=== PATIENT | female | born 1985 | race Caucasian/White ===

== ENCOUNTER 2017-07-21 11:42 | Observation (INO) | payer MEDICARE ==
[2017-07-21] MEDS ORDERED: Sodium Chloride 0.9% 500 ML 500 ML IV ONE ×2 (11:57→12:06)
[2017-07-21] MEDS ORDERED: PROVENTIL 2.5 MG/3 ML NEB IH ONE ×2 (11:58→12:09)
[2017-07-21] MEDS ORDERED: TYLENOL EXTRA STRENGTH 500 MG PO STA (11:58)
[2017-07-21] MEDS ORDERED: Sodium Chloride 0.9% 1000 ML 0 ML ONE (12:05)
[2017-07-21] MEDS ORDERED: TYLENOL EXTRA STRENGTH 500 MG ONE (12:05)
[2017-07-21 12:10] LABS: BASOPHIL % 0.2 % (0.0-0.4); Basophil (Absolute #) 0.01 (0-0.4); Eosinophil (Absolute #) 0 (0-0.5); Granulocyte Absolute (ANC) 3.59 (1.4-6.9); Granulocytes % 68.7 % (36.0-66.0); Hematocrit 46.8 % (35-47); Hemoglobin 15.7 gm/dl (12.0-16.0); Lymphocyte (Absolute #) 1.11 (1.0-4.6); Lymphocytes % 21.3 % (24.0-44.0); Mean Cell Volume 92.9 fl (78-100); Mean Corpuscular Hemoglobin 31.2 pg (26-32); Mean Corpuscular Hgb Concent. 33.5 g/dl (32-36); Mean Platelet Volume 10.1 fl (6-9.5); Monocyte (Absolute #) 0.51 (0.0-1.3); Monocytes % 9.8 % (0.0-12.0); Platelet Count 168 K/mm3 (150-450); Red Blood Count 5.04 M/mm3 (4.1-5.4); Red Cell Distribution Width 14.9 % (11.5-14.0); White Blood Count 5.2 K/mm3 (4.0-10.5)
--- NOTE | 2017-07-21 12:30 | ERPHSYRPT ---
- History of Present Illness Time Seen by Provider: 07/21/17 11:46 Source: patient Patient Subjective Stated Complaint: pt states she has cough fever flu like symptoms for the past 12 hrs. Triage Nursing Assessment: pt pale, hot to touch, dry. lung sounds course bilaterally. pt febrile 102.8. Physician History: CC: fever Hx: 31 y/o patient of Dr Farley/Edilson with hx of [place] Syndrome. Her son was diagnosed with influenza A 2 days ago. She started tamiflu this AM empirically. She has 1 day hx of cough, headache, mylagias, breakbone fever, diarrhea. She felt worse so came to ER. No hx of asthma. She had prior hysterectomy. Sore throat. Cough Quality/Degree: severe, dry cough Allergies/Adverse Reactions: morphine Allergy (Verified 07/21/17 12:01) "HAD SINCE I WAS A KID" Home Medications: Oseltamivir 75 mg [Tamiflu 75MG Capsule] 75 mg PO DAILY 07/21/17 [History] Hx Tetanus, Diphtheria Vaccination/Date Given: Yes (up to date) Hx Influenza Vaccination/Date Given: Yes Hx Pneumococcal Vaccination/Date Given: No Immunizations Up to Date: Yes - Review of Systems Constitutional: Fever, Chills, Fatigue, Malaise, Weakness Eyes: No Symptoms Ears, Nose, & Throat: Nose Congestion, Throat Pain Respiratory: Cough Abdominal/Gastrointestinal: Diarrhea, No Vomiting Genitourinary Symptoms: No Dysuria Skin: No Rash Neurological: No Headache All Other Systems: Reviewed and Negative - Past Medical History Pertinent Past Medical History: Yes Neurological History: Other ENT History: No Pertinent History Cardiac History: No Pertinent History Respiratory History: No Pertinent History Endocrine Medical History: Hyperthyroidism Musculoskeletal History: Other GI Medical History: No Pertinent History, Gallbladder Disease, Other History: No Pertinent History Psycho-Social History: No Pertinent History Female Reproductive Disorders: No Pertinent History Other Medical History: KEYANNA-JAY SYNDROME history of bowel obstructions - Past Surgical History Past Surgical History: Yes Neuro Surgical History: No Pertinent History Cardiac: No Pertinent History Respiratory: No Pertinent History Gastrointestinal: Cholecystectomy, Other Genitourinary: No Pertinent History Musculoskeletal: Orthopedic Surgery Female Surgical History: Hysterectomy Other Surgical History: PARTIAL THYROIDECTOMY - Social History Smoking Status: Current every day smoker How long have you smoked: 18 Exposure to second hand smoke: Yes Drug Use: none Patient Lives Alone: No - Female History Hx Now: (Hyster) - Nursing Vital Signs Nursing Vital Signs: Initial Vital Signs Temperature 102.8 F 07/21/17 11:55 Pulse Rate 144 H 07/21/17 11:55 Respiratory Rate 22 07/21/17 11:55 Blood Pressure 133/92 07/21/17 11:55 O2 Sat by Pulse Oximetry 97 07/21/17 11:55 Pain Scale Pain Intensity 6 - Physical Exam General Appearance: alert, other (small statured) Eye Exam: PERRL/EOMI Ears, Nose, Throat Exam: dry mucous membranes Neck Exam: normal inspection, non-tender, supple, No meningismus Respiratory Exam: normal breath sounds Cardiovascular Exam: regular rate/rhythm, tachycardia Gastrointestinal/Abdomen Exam: soft, No tenderness, No distention Extremity Exam: normal inspection Neurologic Exam: alert, oriented x 3, cooperative, sensation nml, No motor deficits Skin Exam: warm, dry, No rash SpO2 Interpretation: normal SpO2: 97 Oxygen Delivery: Room Air - Course Nursing assessment & vital signs reviewed: Yes - Radiology Exams cxr X-ray Interpretation: Teleradiologist Report (stable nonacute hyperinflated chest) Ordered Tests: Active Orders 24 hr Category Date Time Status Clean Catch Urine Specimen STAT Care 07/21/17 11:56 Active EKG-ER Only STAT Care 07/21/17 14:46 Active IV Insertion STAT Care 07/21/17 11:56 Active CHEST 2 VIEWS (PA AND LAT) Stat Exams 07/21/17 11:56 Completed ECHO W/2D AND DOPPLER [US] Stat Exams 07/21/17 Ordered CBC W DIFF Stat Lab 07/21/17 12:07 Completed CMP Stat Lab 07/21/17 12:07 Completed CULTURE,URINE Stat Lab 07/21/17 12:20 Received Lactic Acid Stat Lab 07/21/17 12:05 Completed TROPONIN Q3H Lab 07/21/17 15:00 Ordered TROPONIN Q3H Lab 07/21/17 18:00 Ordered TROPONIN Q3H Lab 07/21/17 21:00 Ordered TROPONIN Q3H Lab 07/22/17 00:00 Ordered TROPONIN Q3H Lab 07/22/17 03:00 Ordered UA W/ MICROSCOPIC Stat Lab 07/21/17 12:20 Completed Respiratory Nebulizer STAT RT 07/21/17 11:58 Completed Medication Summary Generic Name Dose Route Start Last Admin Trade Name Emre PRN Reason Stop Dose Admin Lactated Ringer's 1,000 mls @ 68 mls/hr 07/21/17 13:00 07/21/17 12:47 Lactated Ringers IV 08/20/17 12:59 68 mls/hr .[id number] Administration Discontinued Medications Generic Name Dose Route Start Last Admin Trade Name Emre PRN Reason Stop Dose Admin Acetaminophen 500 mg 07/21/17 11:58 07/21/17 12:05 Tylenol Extra Strength 500 Mg PO 07/21/17 11:59 500 mg STAT STA Administration Acetaminophen Confirm 07/21/17 12:05 Tylenol Extra Strength 500 Mg Administered 07/21/17 12:06 Dose 500 mg .ROUTE .STK-MED ONE Albuterol Sulfate 2.5 mg 07/21/17 11:58 07/21/17 12:22 Proventil 2.5 Mg/3 Ml Neb IH 07/21/17 11:59 2.5 mg STAT ONE Administration Albuterol Sulfate Confirm 07/21/17 12:09 Proventil 2.5 Mg/3 Ml Neb Administered 07/21/17 12:10 Dose 2.5 mg IH .STK-MED ONE Sodium Chloride 500 mls @ 500 mls/hr 07/21/17 11:57 07/21/17 12:06 Sodium Chloride 0.9% 500 Ml IV 07/21/17 12:56 500 mls/hr .Q1H ONE Administration Sodium Chloride Confirm 07/21/17 12:05 Sodium Chloride 0.9% 1000 Ml Administered 07/21/17 12:06 Dose 1,000 mls @ ud .ROUTE .STK-MED ONE Sodium Chloride Confirm 07/21/17 12:06 Sodium Chloride 0.9% 500 Ml Administered 07/21/17 12:07 Dose 500 mls @ ud IV .STK-MED ONE Ibuprofen 200 mg 07/21/17 13:59 07/21/17 14:03 Motrin 200 Mg PO 07/21/17 14:00 200 mg STAT ONE Administration Ibuprofen Confirm 07/21/17 14:02 Motrin 400 Mg Administered 07/21/17 14:03 Dose 400 mg .ROUTE .STK-MED ONE Lab/Rad Data: Laboratory Result Diagrams 07/21/17 12:07 07/21/17 12:07 Laboratory Results 07/21/17 07/21/17 07/21/17 Range/Units 12:20 12:07 12:07 WBC 5.2 (4.0-10.5) K/mm3 RBC 5.04 (4.1-5.4) M/mm3 Hgb 15.7 (12.0-16.0) gm/dl Hct 46.8 (35-47) % MCV 92.9 (78-100) fl MCH 31.2 (26-32) pg MCHC 33.5 (32-36) g/dl RDW 14.9 H (11.5-14.0) % Plt Count 168 (150-450) K/mm3 MPV 10.1 H (6-9.5) fl Gran % 68.7 H (36.0-66.0) % Lymphocytes % 21.3 L (24.0-44.0) % Monocytes % 9.8 (0.0-12.0) % Eosinophils % 0.0 (0.00-5.0) % Basophils % 0.2 (0.0-0.4) % Basophils # 0.01 (0-0.4) Sodium 134 L (136-145) mEq/L Potassium 3.2 L (3.5-5.1) mEq/L Chloride 98 (98-107) mEq/L Carbon Dioxide 23.4 (21-32) mEq/L Anion Gap 15.8 H (5-15) MEQ/L BUN 10 (9-20) mg/dL Creatinine 0.62 (0.55-1.30) mg/dl Estimated GFR > 60 ML/MIN Glucose 104 (70-110) MG/DL Lactic Acid (0.4-2.0) Calcium 9.0 (8.5-10.1) mg/dL Total Bilirubin 0.40 (0.2-1.0) mg/dL AST 30 (15-37) U/L ALT 28 (12-78) U/L Alkaline Phosphatase 231 H (46-116) U/L Serum Total Protein 7.5 (6.4-8.2) gm/dL Albumin 3.7 (3.4-5.0) g/dL Ur Collection Type VOID Urine Color YELLOW (YELLOW) Urine Appearance HAZY (CLEAR) Urine pH 5.0 (5-6) Ur Specific [place] 1.025 (1.005-1.025) Urine Protein 100 (Negative) Urine Ketones MODERATE (NEGATIVE) Urine Blood 50 (0-5) Jourdan/ul Urine Nitrite NEGATIVE (NEGATIVE) Urine Bilirubin SMALL (NEGATIVE) Urine Urobilinogen 8 (0-1) mg/dL Ur Leukocyte Esterase NEGATIVE (NEGATIVE) Urine Microscopic RBC 2-5 (0-2) /HPF Urine Microscopic WBC 0-2 (0-5) /HPF Ur Epithelial Cells FEW (FEW) /HPF Urine Bacteria MODERATE (NEGATIVE) /HPF Urine Mucus MODERATE (NEGATIVE) /HPF Urine Culture Reflexed YES (NO) Urine Glucose NEGATIVE (NEGATIVE) mg/dL Specimen Received 07/21/17 1220 07/21/17 Range/Units 12:05 WBC (4.0-10.5) K/mm3 RBC (4.1-5.4) M/mm3 Hgb (12.0-16.0) gm/dl Hct (35-47) % MCV (78-100) fl MCH (26-32) pg MCHC (32-36) g/dl RDW (11.5-14.0) % Plt Count (150-450) K/mm3 MPV (6-9.5) fl Gran % (36.0-66.0) % Lymphocytes % (24.0-44.0) % Monocytes % (0.0-12.0) % Eosinophils % (0.00-5.0) % Basophils % (0.0-0.4) % Basophils # (0-0.4) Sodium (136-145) mEq/L Potassium (3.5-5.1) mEq/L Chloride (98-107) mEq/L Carbon Dioxide (21-32) mEq/L Anion Gap (5-15) MEQ/L BUN (9-20) mg/dL Creatinine (0.55-1.30) mg/dl Estimated GFR ML/MIN Glucose (70-110) MG/DL Lactic Acid 1.1 (0.4-2.0) Calcium (8.5-10.1) mg/dL Total Bilirubin (0.2-1.0) mg/dL AST (15-37) U/L ALT (12-78) U/L Alkaline Phosphatase (46-116) U/L Serum Total Protein (6.4-8.2) gm/dL Albumin (3.4-5.0) g/dL Ur Collection Type Urine Color (YELLOW) Urine Appearance (CLEAR) Urine pH (5-6) Ur Specific [place] (1.005-1.025) Urine Protein (Negative) Urine Ketones (NEGATIVE) Urine Blood (0-5) Jourdan/ul Urine Nitrite (NEGATIVE) Urine Bilirubin (NEGATIVE) Urine Urobilinogen (0-1) mg/dL Ur Leukocyte Esterase (NEGATIVE) Urine Microscopic RBC (0-2) /HPF Urine Microscopic WBC (0-5) /HPF Ur Epithelial Cells (FEW) /HPF Urine Bacteria (NEGATIVE) /HPF Urine Mucus (NEGATIVE) /HPF Urine Culture Reflexed (NO) Urine Glucose (NEGATIVE) mg/dL Specimen Received - Progress Progress Note: 07/21/17 12:29 She has influenza syndrome. IVF bolus and APAP in progress. 07/21/17 15:09 Remains tachycardic despite 30ml/kg crystalloid, APAP, motrin. EKG shows some ST abnormalities. Called Dr Farley and will place in tele obs, get echo, flu treatment, and consult cardiology to rule out myocarditis. Will see patient in: hospital (observation) Counseled pt/family regarding: lab results, diagnosis, need for follow-up, rad results - Departure Time of Disposition: 15:10 Departure Disposition: Observation Clinical Impression: [place] syndrome, Influenza, Tachycardia, r/o myocarditis Condition: Fair Critical Care Time: No Referrals: ADAL FARLEY [Primary Care Provider] -
--- NOTE | 2017-07-21 12:34 | XRAY ---
Indication: Fever, cough, and chills. History Keyanna-Malissa syndrome. Comparison: February 23, 2016. PA/lateral chest remains hyperinflated and clear. Heart is not enlarged. Bony thorax intact again with old left rib fractures and mild double curvature scoliosis. Also stable bilateral bony lytic lesions related to known history Keyanna-Malissa syndrome. Impression: Stable nonacute hyperinflated chest with chronic features.
[2017-07-21 12:35] LABS: ALBUMIN 3.7 g/dL (3.4-5.0); ALKALINE PHOSPHATASE 231 U/L (46-116); ANION GAP 15.8 MEQ/L (5-15); BLOOD UREA NITROGEN 10 mg/dL (9-20); CHLORIDE 98 mEq/L (98-107); Carbon Dioxide 23.4 mEq/L (21-32); Creatinine 1 0.62 mg/dl (0.55-1.30); EST GLOMERULAR FILTRATION RATE > 60 ML/MIN; Glucose 104 MG/DL (70-110); Potassium 3.2 mEq/L (3.5-5.1); SGOT/AST 30 U/L (15-37); SGPT/ALT 28 U/L (12-78); SODIUM 134 mEq/L (136-145); Total Protein 7.5 gm/dL (6.4-8.2)
[2017-07-21 12:38] LABS: Appearance HAZY (CLEAR); Bilirubin SMALL (NEGATIVE); Glucose NEGATIVE (NEGATIVE); Ketones MODERATE (NEGATIVE); Leukocyte Esterase NEGATIVE (NEGATIVE); Nitrite NEGATIVE (NEGATIVE); Protein,Urine Dip 100 (Negative); Specific Gravity 1.025 (1.005-1.025); Urobilinogen 8 mg/dL (0-1)
[2017-07-21 12:39] LABS: Bacteria MODERATE /HPF (NEGATIVE); Blood 50 Ery/ul (0-5); Epithelial Cells FEW /HPF (FEW); Mucus MODERATE /HPF (NEGATIVE); WBC 0-2 /HPF (0-5)
[2017-07-21] MEDS ORDERED: Lactated Ringers 1,000 ML IV ONE (12:45)
[2017-07-21] MEDS ORDERED: Lactated Ringers 1,000 ML IV SCH (13:00)
[2017-07-21] MEDS ORDERED: MOTRIN 200 MG PO ONE (13:59)
[2017-07-21] MEDS ORDERED: MOTRIN 400 MG ONE (14:02)
[2017-07-21 16:23] LABS: INFLUENZA A POSITIVE (NEGATIVE); INFLUENZA B NEGATIVE (NEGATIVE); RESPIRATORY SYNCTIAL VIRUS NEGATIVE (Negative)
[2017-07-21] MEDS ORDERED: D5w/0.45NS W/ 40MEQ KCl 1000 Ml 1,000 ML IV SCH (17:26)
[2017-07-21] MEDS: OSELTAMIVIR PHOSPHATE 30 MG CAP PO SCH (22:11)
[2017-07-21] MEDS: TYLENOL EXTRA STRENGTH 500 MG PO PRN (22:17)
[2017-07-22 04:56] LABS: ANION GAP 11.3 MEQ/L (5-15); BLOOD UREA NITROGEN 7 mg/dL (9-20); CHLORIDE 106 mEq/L (98-107); Calcium 8.4 mg/dL (8.5-10.1); Carbon Dioxide 27.1 mEq/L (21-32); Creatinine 1 0.39 mg/dl (0.55-1.30); EST GLOMERULAR FILTRATION RATE > 60 ML/MIN; Glucose 109 MG/DL (70-110); Potassium 3.3 mEq/L (3.5-5.1); SODIUM 141 mEq/L (136-145)
[2017-07-22 05:14] LABS: NT PRO BNP 29 pg/ml (0-125)
[2017-07-22 05:16] LABS: TROPONIN < 0.017 ng/ml (0.000-0.056)
[2017-07-22] MEDS: TYLENOL EXTRA STRENGTH 500 MG PO PRN (05:33)
[2017-07-22 07:52] VITALS: BP 112/58; PULSE 68; O2SAT 96
--- NOTE | 2017-07-22 08:24 | ECHO ---
DATE OF TEST: 07/21/2017 INDICATION: Influenza with tachycardia. FINDINGS: 1) Normal left ventricular wall thickness and cavity size with normal left ventricular systolic function. Overall left ventricular ejection fraction is 60%. Left ventricle inflow Doppler examination is normal for patient's age. Right ventricle is normal in size and systolic function. 2) Atria are normal in size. 3) Mitral valve is structurally normal with trace mitral regurgitation. Tricuspid valve is structurally normal with mild 1+ tricuspid regurgitation and estimated pulmonary artery systolic pressure of 34 mm of [place]. Aortic valve not well visualized but valve excursion is normal. Pulmonic valve is grossly normal. 4) No pericardial effusion. 5) Interatrial septum is mobile and the possibility of patent foramen ovale cannot be excluded. 6) Inferior vena cava is normal in size and inspiratory collapse. IMPRESSION: 1) NORMAL LEFT VENTRICULAR SIZE AND SYSTOLIC FUNCTION. OVERALL LEFT VENTRICULAR EJECTION FRACTION IS 60%. 2) TRACE MITRAL REGURGITATION. 3) MILD 1+ TRICUSPID REGURGITATION WITH ESTIMATED PULMONARY ARTERY SYSTOLLIC PRESSURE OF 34 MM OF MERCURY. 4) NO PERICARDIAL EFFUSION.
--- NOTE | 2017-07-22 09:08 | PCM.SSS ---
History of Present Illness - Chief Complaint Chief Complaint: Flu A History of Present Illness: is a 31 year old female pt of mine from 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 Her son was dx last week and DR. Waggoner called in some tamiflu for her - she has been ill x 3d with fever to 102, took one dose of Tamiflu yesterday morning then had body aches so badly she came to ER. She was found to be tachycardic, in the 130s initially, 110s at the time the ER doctor spoke with me, despite being hydrated. Dr. Yang was consulted, thank you, and an echocardiogram was done. This morning she is feeling much better and would like to go home. HR is wnl. - Review of Systems Constitutional: Fever Respiratory: Cough Abdominal/Gastrointestinal: Abdominal Pain (RLQ with coughing), Diarrhea (few times) Musculoskeletal: Arthralgias Psychological: No Anxiety, No Depression, No Suicidal Ideations, No Homicidal Ideations All Other Systems: Reviewed and Negative Medications & Allergies Home Medications: Home Medication List Oseltamivir 75 mg [Tamiflu 75MG Capsule] 75 mg PO DAILY 07/21/17 [History Confirmed 07/21/17] Allergies/Adverse Reactions: Allergies Allergy/AdvReac Type Severity Reaction Status Date / Time morphine Allergy "HAD SINCE Verified 07/21/17 12:01 I WAS A KID" - Past Medical History Past Medical History: Yes Neurological History: Other ENT History: No Pertinent History Cardiac History: No Pertinent History Respiratory History: No Pertinent History Endocrine Medical History: Hyperthyroidism Musculoskelatal History: Other GI Medical History: No Pertinent History, Gallbladder Disease, Other History: No Pertinent History Pyscho-Social History: No Pertinent History Reproductive Disorders: No Pertinent History Comment: KEYANNA-JAY SYNDROME history of bowel obstructions - Female History Are you now?: No (Hyster) - Past Surgical History Past Surgical History: Yes Neuro Surgical History: No Pertinent History Cardiac History: No Pertinent History Respiratory Surgery: No Pertinent History GI Surgical History: Cholecystectomy, Other Genitourinary Surgical Hx: No Pertinent History Musculskeletal Surgical Hx: Orthopedic Surgery Female Surgical History: Hysterectomy Other Surgical History: PARTIAL THYROIDECTOMY - Social History Smoking Status: Current every day smoker How long have you smoked: 1/2 pk Exposure to second hand smoke: No Alcohol: None Drug Use: none - Physical Exam Vital Signs: Vital Signs - 24 hr Temp Pulse Resp BP Pulse Ox 07/22/17 07:51 98 F 68 20 112/58 96 07/22/17 04:29 98.1 F 97 H 18 103/60 92 L 07/22/17 00:20 99.3 F 100 H 17 110/66 90 L 07/21/17 19:39 97.7 F 101 H 15 118/73 93 L 07/21/17 17:35 97.0 F 91 H 16 100/59 91 L 07/21/17 17:31 97.0 F 91 H 100/59 07/21/17 17:26 97.0 F 91 H 16 100/59 91 L 07/21/17 16:40 98.5 F 105 H 16 124/76 97 07/21/17 15:50 98.5 F 111 H 18 102/65 07/21/17 15:10 97 07/21/17 15:05 115 H 18 117/69 94 L 07/21/17 14:00 101.4 F 129 H 20 132/74 07/21/17 13:15 133 H 16 124/78 91 L 07/21/17 12:41 136 H 18 129/79 96 07/21/17 12:27 124 H 20 94 L 07/21/17 11:55 102.8 F 144 H 22 133/92 97 General Appearance: no apparent distress, alert Neurologic Exam: oriented x 3, cooperative Eye Exam: eyes nml inspection Neck Exam: normal inspection Respiratory Exam: normal breath sounds, lungs clear, No crackles/rales, No rhonchi, No wheezing Cardiovascular Exam: regular rate/rhythm, normal heart sounds, No murmur Gastrointestinal/Abdomen Exam: soft, normal bowel sounds, tenderness (RLQ), No distention, No mass, No guarding, No rebound Back Exam: normal inspection, No rash Extremity Exam: No pedal edema, No swelling Skin Exam: normal color, warm, dry, No rash Results - Labs Lab/Micro Results: Lab Results-Last 24 Hours 07/21/17 07/21/17 07/22/17 Range/Units 18:06 21:04 00:24 Sodium (136-145) mEq/L Potassium (3.5-5.1) mEq/L Chloride (98-107) mEq/L Carbon Dioxide (21-32) mEq/L Anion Gap (5-15) MEQ/L BUN (9-20) mg/dL Creatinine (0.55-1.30) mg/dl Estimated GFR ML/MIN Glucose (70-110) MG/DL Calcium (8.5-10.1) mg/dL Troponin I < 0.017 < 0.017 < 0.017 (0.000-0.056) ng/ml NT-Pro-B Natriuret Pep (0-125) pg/ml 07/22/17 07/22/17 Range/Units 03:32 03:32 Sodium 141 (136-145) mEq/L Potassium 3.3 L (3.5-5.1) mEq/L Chloride 106 (98-107) mEq/L Carbon Dioxide 27.1 (21-32) mEq/L Anion Gap 11.3 (5-15) MEQ/L BUN 7 L (9-20) mg/dL Creatinine 0.39 L (0.55-1.30) mg/dl Estimated GFR > 60 ML/MIN Glucose 109 (70-110) MG/DL Calcium 8.4 L (8.5-10.1) mg/dL Troponin I < 0.017 (0.000-0.056) ng/ml NT-Pro-B Natriuret Pep 29 (0-125) pg/ml Assessment/Plan (1) Hypokalemia Current Visit: Yes Status: Acute Assessment & Plan: will give po potassium herearturo when she resumes her normal diet the K+ will be normal - recheck BMP in one week. Code(s): E87.6 - HYPOKALEMIA (2) Influenza Current Visit: Yes Status: Acute Assessment & Plan: home on tamiflu BID x 5d total Code(s): J11.1 - FLU DUE TO UNIDENTIFIED INFLUENZA VIRUS W OTH RESP MANIFEST (3) Tachycardia Current Visit: Yes Status: Acute Assessment & Plan: resolved. appreciate cardiology consult. 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 she is feeling much better today with HR wnl so will be discharged to home. - Vitals & Intake/Output Vital Signs: Vital Signs Temperature 98 F 07/22/17 07:51 Pulse Rate 68 07/22/17 07:51 Respiratory Rate 20 07/22/17 07:51 Blood Pressure 112/58 07/22/17 07:51 O2 Sat by Pulse Oximetry 96 07/22/17 07:51 Intake & Output: Intake & Output 07/19/17 07/20/17 07/21/17 07/22/17 11:59 11:59 11:59 11:59 Intake Total 1115 Output Total 550 Balance 565 Weight 39.4 kg - Lab Result Diagrams: 07/21/17 12:07 07/22/17 03:32 Lab Results-Last 24 Hrs: Lab Results-Last 24 Hours 07/21/17 07/21/17 07/22/17 Range/Units 18:06 21:04 00:24 Sodium (136-145) mEq/L Potassium (3.5-5.1) mEq/L Chloride (98-107) mEq/L Carbon Dioxide (21-32) mEq/L Anion Gap (5-15) MEQ/L BUN (9-20) mg/dL Creatinine (0.55-1.30) mg/dl Estimated GFR ML/MIN Glucose (70-110) MG/DL Calcium (8.5-10.1) mg/dL Troponin I < 0.017 < 0.017 < 0.017 (0.000-0.056) ng/ml NT-Pro-B Natriuret Pep (0-125) pg/ml 07/22/17 07/22/17 Range/Units 03:32 03:32 Sodium 141 (136-145) mEq/L Potassium 3.3 L (3.5-5.1) mEq/L Chloride 106 (98-107) mEq/L Carbon Dioxide 27.1 (21-32) mEq/L Anion Gap 11.3 (5-15) MEQ/L BUN 7 L (9-20) mg/dL Creatinine 0.39 L (0.55-1.30) mg/dl Estimated GFR > 60 ML/MIN Glucose 109 (70-110) MG/DL Calcium 8.4 L (8.5-10.1) mg/dL Troponin I < 0.017 (0.000-0.056) ng/ml NT-Pro-B Natriuret Pep 29 (0-125) pg/ml - Discharge Disposition: Home, Self-Care Condition: Good Prescriptions: Continue Oseltamivir 75 mg [Tamiflu 75MG Capsule] 75 mg PO DAILY Follow up with: ADAL FLANNERY [Primary Care Provider] -
--- NOTE | 2017-07-22 09:54 | CONS ---
CONSULT DATE: 07/21/2017 BRIEF HISTORY: This is a 31 year-old female who was seen because of tachycardia. The patient has the diagnosis of Keyanna-[place] Syndrome. She was apparently diagnosed to have influenza about two days ago and was started on Tamiflu. Her symptoms seems to have gotten worse with development of myalgia, joint pain, fever and diarrhea. She was then brought to the emergency room and she was noted to be tachycardic. She denies any chest pains, no shortness of breath. She just felt worn out and diffuse myalgia. CARDIAC RISK FACTORS: Negative for diabetes. No hypertension. She smokes about a half pack of cigarettes a day. No known hyperlipidemia. CURRENT MEDICATIONS: Tamiflu. ALLERGIES: MORPHINE. REVIEW OF SYSTEMS: TECHNICIAN AUTOMATIC: No history of stroke. No seizures. RESPIRATORY: No chronic cough. GI: She had multiple abdominal surgeries. : Negative for dysuria or hematuria. PERIPHERAL VASCULAR: No history of DVT or claudication. PAST MEDICAL HISTORY: Her significant medical history includes Keyanna-Malissa Syndrome for which she has had multiple orthopedic procedures. PAST SURGICAL HISTORY: Partial thyroidectomy. Hysterectomy. Multiple orthopedic procedures. Cholecystectomy. SOCIAL HISTORY: She is single. She has no significant alcohol intake. PHYSICAL EXAMINATION: Her blood pressure is 133/92 with heart rate of 110 with temperature 102.8F, respirations about 20. GENERAL: The patient is a young female who is alert, oriented, who is not in any form of distress. HEENT: Unremarkable. NECK: No significant JVD. There is scar from previous thyroidectomy. CHEST: The breath sounds are harsh with some rhonchi. CARDIAC: Heart tones are normal. The rhythm is regular. There is a grade 2/6 mid systolic murmur. ABDOMEN: Soft with normal bowel sounds. There is a well healed scar. EXTREMITIES: Multiple scars in the right upper extremity and also left hip area. The distal pulses are somewhat difficult to palpate. LAB DATA AND DIAGNOSTIC TESTS: The EKG showed sinus tachycardia with nonspecific ST-T wave changes probably secondary left ventricular hypertrophy. IMPRESSION: In essence the patient with sinus tachycardia most likely secondary to the hypercatabolic state from ongoing febrile illness from influenza. Her heart rate seems to have slowed down. Will get echocardiogram to assess left ventricular systolic function and also get TSH to rule out hyperthyroid state. Further recommendations will be made after the tests have been completed.
[2017-07-22] MEDS: OSELTAMIVIR PHOSPHATE 30 MG CAP PO SCH (10:00)
[2017-07-22] MEDS ORDERED: Klor Con 10 MEQ PO SCH (10:00)
== END 2017-07-22 10:05 | disposition home or self-care (01) ==
LOC: ED 11:42 → MED SURG 17:15
PROVIDERS: ADMIT Family Medicine; ATTEND Family Medicine
DX: J11.1 Influenza due to unidentified influenza virus with other respiratory manifestations (principal); R00.0 Tachycardia, unspecified; Q78.1 Polyostotic fibrous dysplasia; Z72.0 Tobacco use
CPT/HCPCS: 36000; 36415; 71046; 80048; 80053; 81000; 83605; 83880; 84484; 85025; 87086; 87631; 93005; 93268; 93306; 94640; 96360; 96361; 99285; G0378; A9270-GY

== ENCOUNTER 2018-08-22 12:52 | Emergency (ER) | payer MEDICARE ==
[2018-08-22 13:00] VITALS: O2SAT 98
--- NOTE | 2018-08-22 13:42 | ERPHSYRPT ---
- History of Present Illness Time Seen by Provider: 08/22/18 13:36 Source: patient, police Exam Limitations: no limitations Patient Subjective Stated Complaint: PD states "We are here for a med clearance. " Triage Nursing Assessment: Pt alert and oriented X 3, skin pwd Pt ambulates with an upright steady gait, able to speak in clear full sentences. Pt in no apparent respiratory distress. 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 The state pilot pulled her over for presumed traffic violation. He found some synthetic marijuana in her car. She denies to me having used any drugs or alcohol. Timing/Duration: today Severity: mild Modifying Factors: Improves With: nothing Associated Symptoms: denies symptoms Allergies/Adverse Reactions: morphine Allergy (Verified 07/21/17 12:01) "HAD SINCE I WAS A KID" Home Medications: No Reportable Medications [No Reported Medications] 08/22/18 [History] Hx Tetanus, Diphtheria Vaccination/Date Given: No Hx Influenza Vaccination/Date Given: No Hx Pneumococcal Vaccination/Date Given: No Immunizations Up to Date: Yes - Review of Systems Constitutional: No Fever, No Chills Eyes: No Symptoms Ears, Nose, & Throat: No Symptoms Respiratory: No Cough, No Dyspnea Cardiac: No Chest Pain, No Edema, No Syncope Abdominal/Gastrointestinal: No Abdominal Pain, No Nausea, No Vomiting, No Diarrhea Genitourinary Symptoms: No Dysuria Musculoskeletal: No Back Pain, No Neck Pain Skin: No Rash Neurological: No Dizziness, No Focal Weakness, No Sensory Changes Psychological: No Symptoms Endocrine: No Symptoms Hematologic/Lymphatic: No Symptoms Immunological/Allergic: No Symptoms All Other Systems: Reviewed and Negative - Past Medical History Pertinent Past Medical History: Yes Neurological History: Other ENT History: No Pertinent History Cardiac History: No Pertinent History Respiratory History: No Pertinent History Endocrine Medical History: Hyperthyroidism Musculoskeletal History: Other GI Medical History: No Pertinent History, Gallbladder Disease, Other History: No Pertinent History Psycho-Social History: No Pertinent History Female Reproductive Disorders: No Pertinent History Other Medical History: EBEN-JAY SYNDROME history of bowel obstructions - Past Surgical History Past Surgical History: Yes Neuro Surgical History: No Pertinent History Cardiac: No Pertinent History Respiratory: No Pertinent History Gastrointestinal: Cholecystectomy, Other Genitourinary: No Pertinent History Musculoskeletal: Orthopedic Surgery Female Surgical History: Hysterectomy Other Surgical History: PARTIAL THYROIDECTOMY - Social History Smoking Status: Current every day smoker How long have you smoked: 18 yea Exposure to second hand smoke: Yes Drug Use: other Patient Lives Alone: No - Female History Hx Last Menstrual Period: 11 years ago Hx Now: No - Nursing Vital Signs Nursing Vital Signs: Initial Vital Signs Temperature 98.7 F 08/22/18 12:54 Pulse Rate 74 08/22/18 12:54 Respiratory Rate 16 08/22/18 12:54 Blood Pressure 140/86 08/22/18 12:54 O2 Sat by Pulse Oximetry 98 08/22/18 12:54 Pain Scale Pain Intensity 0 - Physical Exam General Appearance: no apparent distress, alert, other (small stature) Eye Exam: PERRL/EOMI, eyes nml inspection Ears, Nose, Throat Exam: normal ENT inspection, TMs normal, pharynx normal, moist mucous membranes Neck Exam: normal inspection, non-tender, supple, full range of motion Respiratory Exam: normal breath sounds, lungs clear, No respiratory distress Cardiovascular Exam: regular rate/rhythm, normal heart sounds, normal peripheral pulses Gastrointestinal/Abdomen Exam: soft, normal bowel sounds, No tenderness, No mass Pelvic Exam: not done Rectal Exam: not done Back Exam: normal inspection, normal range of motion, No CVA tenderness, No vertebral tenderness Extremity Exam: normal inspection, normal range of motion, pelvis stable Neurologic Exam: alert, oriented x 3, cooperative, normal mood/affect, nml cerebellar function, nml station & gait, sensation nml, No motor deficits Skin Exam: normal color, warm, dry, No rash Lymphatic Exam: No adenopathy SpO2 Interpretation: normal SpO2: 98 O2 Delivery: Room Air Ordered Tests: Active Orders 24 hr Category Date Time Status Clean Catch Urine Specimen STAT Care 08/22/18 13:45 Active BMP Stat Lab 08/22/18 14:09 Completed CBC W DIFF Stat Lab 08/22/18 14:09 Completed ETHYL ALCOHOL Stat Lab 08/22/18 14:09 Completed UA W/RFX UR CULTURE Stat Lab 08/22/18 14:09 Completed Urine Triage Profile Stat Lab 08/22/18 14:09 Completed Lab/Rad Data: Laboratory Result Diagrams 08/22/18 14:09 08/22/18 14:09 Laboratory Results 02/19/19 02/19/19 02/19/19 Range/Units 14:09 14:09 14:09 WBC (4.0-10.5) K/mm3 RBC (4.1-5.4) M/mm3 Hgb (12.0-16.0) gm/dl Hct (35-47) % MCV (78-100) fl MCH (26-32) pg MCHC (32-36) g/dl RDW (11.5-14.0) % Plt Count (150-450) K/mm3 MPV (6-9.5) fl Gran % (36.0-66.0) % Eos # (Auto) (0-0.5) Absolute Lymphs (auto) (1.0-4.6) Absolute Monos (auto) (0.0-1.3) Lymphocytes % (24.0-44.0) % Monocytes % (0.0-12.0) % Eosinophils % (0.00-5.0) % Basophils % (0.0-0.4) % Absolute Granulocytes (1.4-6.9) Basophils # (0-0.4) Sodium (137-145) mmol/L Potassium (3.5-5.1) mmol/L Chloride (98-107) mmol/L Carbon Dioxide (22-30) mmol/L Anion Gap (5-15) MEQ/L BUN (7-17) mg/dL Creatinine (0.52-1.04) mg/dL Estimated GFR ML/MIN Glucose (74-106) mg/dL Calcium (8.4-10.2) mg/dL Urine Color STRAW (YELLOW) Urine Appearance CLEAR (CLEAR) Urine pH 5.0 (5-6) Ur Specific [place] 1.008 (1.005-1.025) Urine Protein NEGATIVE (Negative) Urine Ketones NEGATIVE (NEGATIVE) Urine Blood NEGATIVE (0-5) Jourdan/ul Urine Nitrite NEGATIVE (NEGATIVE) Urine Bilirubin NEGATIVE (NEGATIVE) Urine Urobilinogen NEGATIVE (0-1) mg/dL Ur Leukocyte Esterase NEGATIVE (NEGATIVE) Urine WBC (Auto) NONE (0-5) /HPF Urine RBC (Auto) NONE SEEN (0-2) /HPF U Epithel Cells (Auto) NONE (FEW) /HPF Urine Bacteria (Auto) NONE SEEN (NEGATIVE) /HPF Urine Culture Reflexed NO (NO) Urine Glucose NEGATIVE (NEGATIVE) mg/dL Urine Opiates Level NEGATIVE (NEGATIVE) Ur Methadone NEGATIVE (NEGATIVE) Urine Barbiturates NEGATIVE (NEGATIVE) Ur Phencyclidine (PCP) NEGATIVE (NEGATIVE) Urine Amphetamine NEGATIVE (NEGATIVE) U Benzodiazepine Level NEGATIVE (NEGATIVE) Urine Cocaine NEGATIVE (NEGATIVE) Urine Marijuana (THC) NEGATIVE (NEGATIVE) Ethyl Alcohol < 10 (0-10) mg/dL 08/22/18 08/22/18 Range/Units 14:09 14:09 WBC 9.4 (4.0-10.5) K/mm3 RBC 4.30 (4.1-5.4) M/mm3 Hgb 13.4 (12.0-16.0) gm/dl Hct 41.5 (35-47) % MCV 96.5 (78-100) fl MCH 31.2 (26-32) pg MCHC 32.3 (32-36) g/dl RDW 16.3 H (11.5-14.0) % Plt Count 283 (150-450) K/mm3 MPV 9.6 H (6-9.5) fl Gran % 73.2 H (36.0-66.0) % Eos # (Auto) 0.06 (0-0.5) Absolute Lymphs (auto) 1.89 (1.0-4.6) Absolute Monos (auto) 0.54 (0.0-1.3) Lymphocytes % 20.2 L (24.0-44.0) % Monocytes % 5.8 (0.0-12.0) % Eosinophils % 0.6 (0.00-5.0) % Basophils % 0.2 (0.0-0.4) % Absolute Granulocytes 6.85 (1.4-6.9) Basophils # 0.02 (0-0.4) Sodium 140 (137-145) mmol/L Potassium 3.6 (3.5-5.1) mmol/L Chloride 108 H (98-107) mmol/L Carbon Dioxide 25 (22-30) mmol/L Anion Gap 10.6 (5-15) MEQ/L BUN 12 (7-17) mg/dL Creatinine 0.34 L (0.52-1.04) mg/dL Estimated GFR > 60.0 ML/MIN Glucose 122 H (74-106) mg/dL Calcium 8.9 (8.4-10.2) mg/dL Urine Color (YELLOW) Urine Appearance (CLEAR) Urine pH (5-6) Ur Specific [place] (1.005-1.025) Urine Protein (Negative) Urine Ketones (NEGATIVE) Urine Blood (0-5) Jourdan/ul Urine Nitrite (NEGATIVE) Urine Bilirubin (NEGATIVE) Urine Urobilinogen (0-1) mg/dL Ur Leukocyte Esterase (NEGATIVE) Urine WBC (Auto) (0-5) /HPF Urine RBC (Auto) (0-2) /HPF U Epithel Cells (Auto) (FEW) /HPF Urine Bacteria (Auto) (NEGATIVE) /HPF Urine Culture Reflexed (NO) Urine Glucose (NEGATIVE) mg/dL Urine Opiates Level (NEGATIVE) Ur Methadone (NEGATIVE) Urine Barbiturates (NEGATIVE) Ur Phencyclidine (PCP) (NEGATIVE) Urine Amphetamine (NEGATIVE) U Benzodiazepine Level (NEGATIVE) Urine Cocaine (NEGATIVE) Urine Marijuana (THC) (NEGATIVE) Ethyl Alcohol (0-10) mg/dL - Progress Progress: unchanged Progress Note: 08/22/18 14:44 Urine drug screen and blood work is neg. Counseled pt/family regarding: diagnosis - Departure Time of Disposition: 14:44 Departure Disposition: Residential/Skilled Nursing Clinical Impression: Medical clearance for incarceration Condition: Stable Critical Care Time: No Referrals: ADAL FLANNERY [Primary Care Provider] -
[2018-08-22 14:14] LABS: BASOPHIL % 0.2 % (0.0-0.4); Basophil (Absolute #) 0.02 (0-0.4); Eosinophil % 0.6 % (0.00-5.0); Eosinophil (Absolute #) 0.06 (0-0.5); Granulocyte Absolute (ANC) 6.85 (1.4-6.9); Granulocytes % 73.2 % (36.0-66.0); Hematocrit 41.5 % (35-47); Hemoglobin 13.4 gm/dl (12.0-16.0); Lymphocyte (Absolute #) 1.89 (1.0-4.6); Lymphocytes % 20.2 % (24.0-44.0); Mean Cell Volume 96.5 fl (78-100); Mean Corpuscular Hemoglobin 31.2 pg (26-32); Mean Corpuscular Hgb Concent. 32.3 g/dl (32-36); Mean Platelet Volume 9.6 fl (6-9.5); Monocyte (Absolute #) 0.54 (0.0-1.3); Monocytes % 5.8 % (0.0-12.0); Platelet Count 283 K/mm3 (150-450); Red Cell Distribution Width 16.3 % (11.5-14.0); White Blood Count 9.4 K/mm3 (4.0-10.5)
[2018-08-22 14:18] LABS: Appearance CLEAR (CLEAR); Bacteria NONE SEEN /HPF (NEGATIVE); Bilirubin NEGATIVE (NEGATIVE); Blood NEGATIVE Ery/ul (0-5); Glucose NEGATIVE (NEGATIVE); Ketones NEGATIVE (NEGATIVE); Leukocyte Esterase NEGATIVE (NEGATIVE); Nitrite NEGATIVE (NEGATIVE); Protein,Urine Dip NEGATIVE (Negative); RBC NONE SEEN /HPF (0-2); Specific Gravity 1.008 (1.005-1.025); Urobilinogen NEGATIVE mg/dL (0-1)
[2018-08-22 14:25] VITALS: BP 142/84; PULSE 72
[2018-08-22 14:28] LABS: ANION GAP 10.6 MEQ/L (5-15); BLOOD UREA NITROGEN 12 mg/dL (7-17); CHLORIDE 108 mmol/L (98-107); Calcium 8.9 mg/dL (8.4-10.2); Carbon Dioxide 25 mmol/L (22-30); Creatinine 1 0.34 mg/dL (0.52-1.04); Glucose 122 mg/dL (74-106); Potassium 3.6 mmol/L (3.5-5.1); SODIUM 140 mmol/L (137-145)
[2018-08-22 14:34] LABS: Amphetamine,Urine NEGATIVE (NEGATIVE); Barbiturate,Urine NEGATIVE (NEGATIVE); Benzodiazepine,Urine NEGATIVE (NEGATIVE); Cocaine,Urine NEGATIVE (NEGATIVE); Methadone,Urine NEGATIVE (NEGATIVE); Opiate,Urine NEGATIVE (NEGATIVE); PCP,Urine NEGATIVE (NEGATIVE); THC,Urine NEGATIVE (NEGATIVE)
== END 2018-08-22 14:51 | disposition home or self-care (01) ==
LOC: ED 12:52
DX: Z02.89 Encounter for other administrative examinations (principal); E05.90 Thyrotoxicosis, unspecified without thyrotoxic crisis or storm; Q78.1 Polyostotic fibrous dysplasia
CPT/HCPCS: 36415; 80048; 80307; 81001; 85025; 99283; G0480

== ENCOUNTER 2020-01-12 13:49 | Emergency (ER) | payer MEDICARE ==
[2020-01-12] MEDS ORDERED: Zofran 4 MG/2 ML VIAL IV ONE (14:35)
[2020-01-12] MEDS ORDERED: Hydromorphone 1 mg/ml Ampule IV ONE (14:35)
[2020-01-12] MEDS ORDERED: Sodium Chloride 0.9% 1000 ML 1,000 ML IV STA (14:35)
[2020-01-12] MEDS ORDERED: Zofran 4 MG/2 ML VIAL ONE (14:39)
[2020-01-12] MEDS ORDERED: Sodium Chloride 0.9% 1000 ML 1,000 ML ONE (14:40)
[2020-01-12] MEDS ORDERED: Hydromorphone 1 mg/ml Ampule ONE (14:40)
[2020-01-12 15:00] LABS: Amourphous Crystal MANY /HPF (NEGATIVE); Appearance TURBID (CLEAR); Bilirubin SMALL (NEGATIVE); Blood NEGATIVE Ery/ul (0-5); Epithelial Cells RARE /HPF (FEW); Glucose NEGATIVE (NEGATIVE); Ketones NEGATIVE (NEGATIVE); Leukocyte Esterase NEGATIVE (NEGATIVE); Mucus MANY /HPF (NEGATIVE); Nitrite NEGATIVE (NEGATIVE); Protein,Urine Dip 30 (Negative); Specific Gravity 1.028 (1.005-1.025); Urobilinogen 4 mg/dL (0-1); WBC 0-2 /HPF (0-5)
[2020-01-12 15:01] LABS: Bacteria FEW /HPF (NEGATIVE)
[2020-01-12 15:08] LABS: Absolute Neutrophil Ct (ANC) 8.02 (1.4-6.9); BASOPHIL % 0.2 % (0.0-0.4); Basophil (Absolute #) 0.02 (0-0.4); Eosinophil % 0.6 % (0.00-5.0); Eosinophil (Absolute #) 0.06 (0-0.5); Hematocrit 46.7 % (35-47); Hemoglobin 15.5 gm/dl (12.0-16.0); Lymphocyte (Absolute #) 1.74 (1.0-4.6); Lymphocytes % 16.3 % (24.0-44.0); Mean Cell Volume 93.8 fl (78-100); Mean Corpuscular Hemoglobin 31.1 pg (26-32); Mean Corpuscular Hgb Concent. 33.2 g/dl (32-36); Mean Platelet Volume 9.3 fl (7.5-11.0); Monocyte (Absolute #) 0.81 (0.0-1.3); Monocytes % 7.6 % (0.0-12.0); Neutrophil % 75.3 % (36.0-66.0); Platelet Count 301 K/mm3 (150-450); Red Blood Count 4.98 M/mm3 (4.1-5.4); Red Cell Distribution Width 15.4 % (11.5-14.0); White Blood Count 10.7 K/mm3 (4.0-10.5)
[2020-01-12 15:20] LABS: ALBUMIN 4.2 g/dL (3.5-5.0); ALKALINE PHOSPHATASE 261 U/L (38-126); ANION GAP 9.7 MEQ/L (5-15); BLOOD UREA NITROGEN 14 mg/dL (7-17); CHLORIDE 109 mmol/L (98-107); Calcium 9.3 mg/dL (8.4-10.2); Carbon Dioxide 24 mmol/L (22-30); Creatinine 1 0.37 mg/dL (0.52-1.04); Glucose 108 mg/dL (74-106); LIPASE 119 U/L (23-300); Potassium 3.4 mmol/L (3.5-5.1); SGOT/AST 21 U/L (14-36); SGPT/ALT 17 U/L (0-35); SODIUM 139 mmol/L (137-145); Total Protein 7.6 g/dL (6.3-8.2)
--- NOTE | 2020-01-12 15:40 | ERPHSYRPT ---
- History of Present Illness Time Seen by Provider: 01/12/20 14:53 Historian: patient Exam Limitations: no limitations Patient Subjective Stated Complaint: "I've been having a lot of bloody poop and vomiting. I'm also having abdominal pain." Triage Nursing Assessment: Pt presented alert et oriented x3 answering questions approrpiately. Pt reported lower abdominal pain with blood in her stool. Pt reported this is ongoing x3 weeks. Pt reported intermittent vomiting. Pupils 3mm brisk reaction. Neck supple non-tender. Symmetrical chest expansion. Heart tones tachycardic/clear, lung sounds clear with adequate airflow throughout all [place]. Abdomen soft non-distended with noted scar from a previous surgery. Bowel sounds present in all quadrants. Diffuse tenderness to palpation noted to RLQ/LLQ. No noted dependent edema. Physician History: 34 years old female with history of Keyanna Hinckley syndrome, IBS, chronic abdominal pain, chronic arthritis presented in the ER with chief complaint of generalized abdominal pain more in the right lower quadrant for the last 2 days with progressive worsening associated with nausea and vomiting. Pain is moderate to severe intensity, sharp in nature, aggravated with movements and vomiting and no significant relieving factors. Denies fever or chills. She also has history of hemorrhoids prolapsed for quite some time and lately is having more pain and bleeding almost with every bowel movement. She is feeling fatigued and tired and is concerned about getting anemia. She is also complaining of increasing pain in the right hip because of worn-out hip and is scheduled to have total hip replacement next month. Denies any fall or trauma. Timing/Duration: day(s) (2), gradual onset, worse Activities at Onset: rest Quality: sharpness Abdominal Pain Onset Location: generalized abdomen Pain Radiation: no radiation Severity of Pain-Max: moderate Severity of Pain-Current: moderate Modifying Factors: Improves With: defecating, movement, palpation Associated Symptoms: nausea, vomiting Previous symptoms: same symptoms as today Allergies/Adverse Reactions: morphine Allergy (Verified 01/12/20 14:08) "HAD SINCE I WAS A KID" Hx Tetanus, Diphtheria Vaccination/Date Given: Yes Hx Influenza Vaccination/Date Given: Yes Hx Pneumococcal Vaccination/Date Given: No Travel Risk - International Travel Have you traveled outside of the country in past 3 weeks: No If Yes, where;: N - Coronavirus Screening Are you exhibiting any of the following symptoms?: No Close contact with a COVID-19 positive Pt in past 14-21 Days: No - Past Medical History Pertinent Past Medical History: Yes Neurological History: Other ENT History: No Pertinent History Cardiac History: No Pertinent History Respiratory History: No Pertinent History Endocrine Medical History: Hyperthyroidism Musculoskeletal History: Other GI Medical History: No Pertinent History, Gallbladder Disease, Other History: No Pertinent History Psycho-Social History: No Pertinent History Female Reproductive Disorders: No Pertinent History Other Medical History: KEYANNA-JAY SYNDROME history of bowel obstructions - Past Surgical History Past Surgical History: Yes Neuro Surgical History: No Pertinent History Cardiac: No Pertinent History Respiratory: No Pertinent History Gastrointestinal: Cholecystectomy, Other Genitourinary: No Pertinent History Musculoskeletal: Orthopedic Surgery Female Surgical History: Hysterectomy Other Surgical History: PARTIAL THYROIDECTOMY - Social History Smoking Status: Current every day smoker How long have you smoked: 18 yea Exposure to second hand smoke: Yes Drug Use: other Patient Lives Alone: No - Female History Hx Now: No - Nursing Vital Signs Nursing Vital Signs: Initial Vital Signs Pulse Rate 121 H 01/12/20 13:50 Respiratory Rate 18 01/12/20 13:50 Blood Pressure 138/88 01/12/20 13:50 O2 Sat by Pulse Oximetry 98 01/12/20 13:50 Pain Scale Pain Intensity 9 - Physical Exam SpO2: 98 Ordered Tests: Active Orders 24 hr Category Date Time Status IV Insertion STAT Care 01/12/20 14:35 Active ABDOMEN AND PELVIS W CONTRAST [CT] Stat Exams 01/12/20 14:35 Taken CBC W DIFF Stat Lab 01/12/20 14:55 Completed CMP Stat Lab 01/12/20 14:55 Completed CULTURE,URINE Stat Lab 01/12/20 14:35 Received LIPASE Stat Lab 01/12/20 14:55 Completed UA W/RFX UR CULTURE Stat Lab 01/12/20 14:35 Completed Medication Summary Discontinued Medications Generic Name Dose Route Start Last Admin Trade Name Freq PRN Reason Stop Dose Admin Hydromorphone HCl 0.5 mg 01/12/20 14:35 01/12/20 14:45 Hydromorphone 1 Mg/Ml Ampule IV 01/12/20 14:36 0.5 mg STAT ONE Administration Hydromorphone HCl Confirm 01/12/20 14:40 Hydromorphone 1 Mg/Ml Ampule Administered 01/12/20 14:41 Dose 1 mg .ROUTE .STK-MED ONE Sodium Chloride 1,000 mls @ 999 mls/hr 01/12/20 14:35 01/12/20 15:59 Sodium Chloride 0.9% 1000 Ml IV 01/12/20 15:35 Infused .Q1H1M STA Infusion Sodium Chloride Confirm 01/12/20 14:40 Sodium Chloride 0.9% 1000 Ml Administered 01/12/20 14:41 Dose 1,000 mls @ ud .ROUTE .STK-MED ONE Ondansetron HCl 4 mg 01/12/20 14:35 01/12/20 14:43 Zofran 4 Mg/2 Ml Vial IV 01/12/20 14:36 4 mg STAT ONE Administration Ondansetron HCl Confirm 01/12/20 14:39 Zofran 4 Mg/2 Ml Vial Administered 01/12/20 14:40 Dose 4 mg .ROUTE .STK-MED ONE Lab/Rad Data: Laboratory Result Diagrams 01/12/20 14:55 01/12/20 14:55 Laboratory Results 01/12/20 01/12/20 01/12/20 Range/Units 14:55 14:55 14:35 WBC 10.7 H (4.0-10.5) K/mm3 RBC 4.98 (4.1-5.4) M/mm3 Hgb 15.5 (12.0-16.0) gm/dl Hct 46.7 (35-47) % MCV 93.8 (78-100) fl MCH 31.1 (26-32) pg MCHC 33.2 (32-36) g/dl RDW 15.4 H (11.5-14.0) % Plt Count 301 (150-450) K/mm3 MPV 9.3 (7.5-11.0) fl Gran % 75.3 H (36.0-66.0) % Eos # (Auto) 0.06 (0-0.5) Absolute Lymphs (auto) 1.74 (1.0-4.6) Absolute Monos (auto) 0.81 (0.0-1.3) Lymphocytes % 16.3 L (24.0-44.0) % Monocytes % 7.6 (0.0-12.0) % Eosinophils % 0.6 (0.00-5.0) % Basophils % 0.2 (0.0-0.4) % Absolute Granulocytes 8.02 H (1.4-6.9) Basophils # 0.02 (0-0.4) Sodium 139 (137-145) mmol/L Potassium 3.4 L (3.5-5.1) mmol/L Chloride 109 H (98-107) mmol/L Carbon Dioxide 24 (22-30) mmol/L Anion Gap 9.7 (5-15) MEQ/L BUN 14 (7-17) mg/dL Creatinine 0.37 L (0.52-1.04) mg/dL Estimated GFR > 60.0 ML/MIN Glucose 108 H (74-106) mg/dL Calcium 9.3 (8.4-10.2) mg/dL Total Bilirubin 0.60 (0.2-1.3) mg/dL AST 21 (14-36) U/L ALT 17 (0-35) U/L Alkaline Phosphatase 261 H (38-126) U/L Serum Total Protein 7.6 (6.3-8.2) g/dL Albumin 4.2 (3.5-5.0) g/dL Lipase 119 (23-300) U/L Urine Color YELLOW (YELLOW) Urine Appearance TURBID (CLEAR) Urine pH 5.0 (5-6) Ur Specific [place] 1.028 (1.005-1.025) Urine Protein 30 (Negative) Urine Ketones NEGATIVE (NEGATIVE) Urine Blood NEGATIVE (0-5) Jourdan/ul Urine Nitrite NEGATIVE (NEGATIVE) Urine Bilirubin SMALL (NEGATIVE) Urine Urobilinogen 4 (0-1) mg/dL Ur Leukocyte Esterase NEGATIVE (NEGATIVE) Urine WBC (Auto) 0-2 (0-5) /HPF Urine RBC (Auto) 3-5 (0-2) /HPF U Epithel Cells (Auto) RARE (FEW) /HPF Urine Bacteria (Auto) FEW (NEGATIVE) /HPF Amorphous Crystals MANY (NEGATIVE) /HPF Urine Mucus (Auto) MANY (NEGATIVE) /HPF Urine Culture Reflexed YES (NO) Urine Glucose NEGATIVE (NEGATIVE) mg/dL - Progress Progress: improved, pain not gone completely, re-examined Progress Note: 01/12/20 16:45 34 years old is evaluated for abdominal pain. She is given IV fluid and pain medication, on reevaluation her pain is much better. No peritoneal signs on repeated evaluation. Due to abdomen work-up including CT abdomen pelvis with contrast did not show any acute findings. Patient has chronic abdominal pain secondary to IBS which is probably the reason for her pain. She has hemorrhoids, and recommended rectal exam and possible tried to push them in but patient refused. Patient states she will follow-up with surgeon in the next couple of days and is supposed to get them excised. They have been there for quite some time. She also has sclerotic bony changes which are chronic which also contributing to her pain. She did not have any vomiting while in the ER after Zofran. I would give her Zofran to go home and recommended taking Tylenol ibuprofen as needed and outpatient follow-up. Discussed signs symptoms of worsening needing return to ER which he seems understanding. Counseled pt/family regarding: lab results, diagnosis, need for follow-up, leslee garcia - Departure Departure Disposition: Home Clinical Impression: Generalized abdominal pain, Nausea & vomiting Condition: Stable Critical Care Time: No Referrals: ADAL FLANNERY [Primary Care Provider] - Follow Up with PCP/3 days Instructions: Acute Abdomen (Belly Pain), Adult (DC) Additional Instructions: Follow-up with your primary care and general surgery for reevaluation/hemorrhoid ectomy. Take Tylenol/ibuprofen as needed for pain. Take Zofran as needed for nausea and vomiting. Drink plenty of fluids. Return to ER for worsening pain, intractable nausea vomiting/fever or chills. Prescriptions: Ondansetron ODT 4 MG [Zofran Odt 4 mg] 4 mg PO Q6H PRN PRN #10 tab.rapdis PRN Reason: Vomiting
[2020-01-12 16:18] VITALS: BP 110/71; O2SAT 98
[2020-01-12] MEDS ORDERED: TORAdol 30 mg Injection IV ONE (16:44)
[2020-01-12] MEDS ORDERED: TORAdol 30 mg Injection ONE (16:55)
[2020-01-12 17:05] VITALS: PULSE 99
--- NOTE | 2020-01-12 22:08 | XRAY ---
Indication: Abdomen and pelvic pain for several months. Keyanna Malissa syndrome. Multiple contiguous axial images obtained through the abdomen and pelvis using 80 cc SUV 370 contrast. Comparison: December 12, 2015. Lung bases grossly clear. Heart is not enlarged. Images through the pelvis again degraded by beam artifact from bilateral hip orthopedic hardware. Noncontrasted stomach and bowel loops appear nonobstructed. Appendix not seen. Right lower quadrant small bowel loops again are mildly fluid distended with mild wall thickening today favoring enteritis. Crohn's disease not completely excluded. Again previous cholecystectomy and hysterectomy. No free fluid/air. Stable tiny hepatic cysts. Remaining liver, pancreas, spleen, adrenal glands, kidneys, ureters, and bladder appear unremarkable. Aorta is normal in course and caliber without aneurysm or pathological retroperitoneal lymphadenopathy. Osseous structures again demonstrates diffuse bony sclerotic/lytic lesions presumed related to patient's history of Keyanna Malissa syndrome. Impression: 1. Right lower quadrant fluid distended small bowel loops with wall thickening, probable enteritis. Crohn's disease not completely excluded. 2. Stable hepatic cysts and chronic bony findings. Comment: Preliminary interpretation was made by [facility]. No critical discrepancy.
== END 2020-01-12 17:12 | disposition home or self-care (01) ==
LOC: ED 13:49
DX: R11.2 Nausea with vomiting, unspecified (principal)
CPT/HCPCS: 36000; 36415; 74177; 80053; 81001; 83690; 85025; 87086; 96360; 96374; 96375; 99284; J1170; J1885; J2405

== ENCOUNTER 2021-06-28 12:53 | Emergency (ER) | payer MEDICARE ==
--- NOTE | 2021-06-28 13:09 | ERPHSYRPT ---
- History of Present Illness Time Seen by Provider: 06/28/21 13:05 Source: patient Exam Limitations: no limitations (1) Physician History: This is a 35-year-old thin white female patient of Dr. Javier Mcmahon who is a current every day smoker and presents with 1 week history of worsening cough. She is short of breath when she is coughing. Upon entrance into the emergency department, the patient has a room air oxygenation of 97 to 99%. She is mildly tachycardic. She has a history of this and they put her on Lopressor. Patient denies chest pain. She has no abdominal pain. She denies fever. She denies nausea vomiting and diarrhea. She denies abdominal pain. She has been exposed to people, per her report with COVID-19 infections. Patient has never received a vaccine. Patient has a history of asthma, COPD and hypothyroidism. Timing/Duration: week(s), intermittent, worse Severity of Dyspnea-Max: mild Severity of Dyspnea-Current: mild Possible Cause: no prior episodes Modifying Factors: Improves With: activity, coughing Associated Symptoms: anxiety, cough, No chest pain/discomfort Allergies/Adverse Reactions: morphine Allergy (Verified 01/12/20 14:08) "HAD SINCE I WAS A KID" Hx Tetanus, Diphtheria Vaccination/Date Given: Yes Hx Influenza Vaccination/Date Given: Yes Hx Pneumococcal Vaccination/Date Given: No Travel Risk - International Travel Have you traveled outside of the country in past 3 weeks: No - Coronavirus Screening Are you exhibiting any of the following symptoms?: Yes Symptoms: Cough: New Onset, Shortness of Breath Close contact with a COVID-19 positive Pt in past 14-21 Days: Yes - Vaccine Status Have you recieved a Covid-19 vaccination: No - Review of Systems Constitutional: No Symptoms Eyes: No Symptoms Ears, Nose, & Throat: No Symptoms Respiratory: Cough, Dyspnea Cardiac: No Symptoms Abdominal/Gastrointestinal: No Symptoms Genitourinary Symptoms: No Symptoms Musculoskeletal: No Symptoms Skin: No Symptoms Neurological: No Symptoms Psychological: No Symptoms Endocrine: No Symptoms Hematologic/Lymphatic: No Symptoms Immunological/Allergic: No Symptoms All Other Systems: Reviewed and Negative - Past Medical History Pertinent Past Medical History: Yes Neurological History: Other ENT History: No Pertinent History Cardiac History: No Pertinent History Respiratory History: Asthma, COPD Endocrine Medical History: Hyperthyroidism Musculoskeletal History: Other GI Medical History: No Pertinent History, Gallbladder Disease, Other History: No Pertinent History Psycho-Social History: No Pertinent History Female Reproductive Disorders: No Pertinent History Other Medical History: EBEN-JAY SYNDROME history of bowel obstructions - Past Surgical History Past Surgical History: Yes Neuro Surgical History: No Pertinent History Cardiac: No Pertinent History Respiratory: No Pertinent History Gastrointestinal: Cholecystectomy, Other Genitourinary: No Pertinent History Musculoskeletal: Orthopedic Surgery Female Surgical History: Hysterectomy Other Surgical History: PARTIAL THYROIDECTOMY - Social History Smoking Status: Current every day smoker How long have you smoked: 18 yea Exposure to second hand smoke: Yes Drug Use: other Patient Lives Alone: No - Nursing Vital Signs Nursing Vital Signs: Initial Vital Signs Temperature 98.0 F 06/28/21 12:53 Pulse Rate 116 H 06/28/21 12:53 Respiratory Rate 24 06/28/21 12:53 Blood Pressure 123/96 06/28/21 12:53 O2 Sat by Pulse Oximetry 99 06/28/21 12:53 Pain Scale Pain Intensity 0 - Physical Exam General Appearance: no apparent distress, alert, anxiety, thin Eye Exam: PERRL/EOMI, eyes nml inspection Ears, Nose, Throat Exam: hearing grossly normal, normal ENT inspection, normal pharynx Neck Exam: normal inspection, non-tender, supple, full range of motion Respiratory Exam: normal breath sounds, lungs clear, airway intact, No chest tenderness, No respiratory distress Cardiovascular/Chest Exam: tachycardia Abdominal/Gastrointestinal Exam: soft, normal bowel sounds, No tenderness Rectal Exam: not done Extremity Exam: non-tender, normal range of motion, normal inspection, normal capillary refill, no calf tenderness, no pedal edema, pelvis stable Neurologic Exam: alert, oriented x 3, cooperative, telesales team leader II-XII nml as tested, normal mood/affect, nml cerebellar function, nml station & gait, sensation nml Skin Exam: normal color, warm, dry Lymphatic Exam: No adenopathy SpO2 Interpretation: normal SpO2: 99 O2 Delivery: Room Air - Course Nursing assessment & vital signs reviewed: Yes EKG Interpreted by Me: RATE ([id number]), Sinus Tach, NORMAL AXIS, NORMAL INTERVALS, NORMAL QRS, NORMAL ST-T, Other (No acute ischemic changes on today's EKG. When compared to EKG dated 01/28/2020, there is new onset of mild sinus tachycardia) Ordered Tests: Active Orders 24 hr Category Date Time Status Sprinkler Repair Technician STAT Care 06/28/21 13:16 Active EKG-ER Only STAT Care 06/28/21 13:15 Active IV Insertion STAT Care 06/28/21 13:15 Active Pulse Oximetry (ED) STAT Care 06/28/21 13:15 Active CHEST 1 VIEW (PORTABLE) Stat Exams 06/28/21 13:16 Taken CHEST WITH CONTRAST [CT] Stat Exams 06/28/21 15:06 Taken BLOOD CULTURE Stat Lab 06/28/21 13:50 Received CBC W DIFF Stat Lab 06/28/21 13:30 Completed CMP Stat Lab 06/28/21 13:30 Completed D-DIMER QUANTITATIVE Stat Lab 06/28/21 13:15 Completed INFLUENZA A+B NESS Stat Lab 06/28/21 13:30 Completed Lactic Acid Stat Lab 06/28/21 13:28 Completed MAGNESIUM Stat Lab 06/28/21 13:30 Completed Manual Differential NC Stat Lab 06/28/21 13:30 Completed NT PRO BNP Stat Lab 06/28/21 13:30 Completed TROPONIN Q3H Lab 06/28/21 13:30 Completed TROPONIN Q3H Lab 06/28/21 16:15 Ordered TROPONIN Q3H Lab 06/28/21 19:15 Ordered TROPONIN Q3H Lab 06/28/21 22:15 Ordered TROPONIN Q3H Lab 06/29/21 01:15 Ordered Medication Summary Generic Name Dose Route Start Last Admin Trade Name Freq PRN Reason Stop Dose Admin Ceftriaxone Sodium/Dextrose 1 g in 50 mls @ 100 mls/hr 06/28/21 15:59 Rocephin 1 Gm-D5w 50 Ml Bag IV 06/28/21 16:28 STAT STA Discontinued Medications Generic Name Dose Route Start Last Admin Trade Name Freq PRN Reason Stop Dose Admin Hydrocodone Bitart/Acetaminophen 10 ml 06/28/21 13:59 06/28/21 14:21 Hydrocodone/Acetaminophen 5 Ml Udcup PO 06/28/21 14:00 10 ml STAT STA Administration Hydrocodone Bitart/Acetaminophen Confirm 06/28/21 14:14 Hydrocodone/Acetaminophen 5 Ml Udcup Administered 06/28/21 14:15 Dose 10 ml .ROUTE .STK-MED ONE Methylprednisolone Sodium 0 mg 06/28/21 14:00 06/28/21 14:21 Succinate 125 mg/ Sterile IV 06/28/21 14:01 125 mg Water 2 ml STAT ONE Administration Sodium Chloride 500 mls @ 500 mls/hr 06/28/21 14:32 06/28/21 15:16 Sodium Chloride 0.9% 500 Ml IV 06/28/21 15:31 500 mls/hr .Q1H ONE Administration Sodium Chloride Confirm 06/28/21 14:46 Sodium Chloride 0.9% 500 Ml Administered 06/28/21 14:47 Dose 500 mls @ ud IV .STK-MED ONE Sodium Chloride Confirm 06/28/21 15:15 Sodium Chloride 0.9% 500 Ml Administered 06/28/21 15:16 Dose 500 mls @ ud IV .STK-MED ONE Methylprednisolone Sodium Succinate Confirm 06/28/21 14:14 Methylprednis Sod Succ 125 Mg/2 Ml Vial Administered 06/28/21 14:15 Dose 125 mg .ROUTE .STK-MED ONE Lab/Rad Data: Laboratory Result Diagrams 06/28/21 13:30 06/28/21 13:30 Laboratory Results 06/28/21 06/28/21 06/28/21 Range/Units 13:30 13:30 13:30 WBC 13.6 H (4.0-10.5) K/mm3 RBC 4.91 (4.1-5.4) M/mm3 Hgb 14.5 (12.0-16.0) gm/dl Hct 45.6 (35-47) % MCV 92.9 (78-100) fl MCH 29.5 (26-32) pg MCHC 31.8 L (32-36) g/dl RDW 16.5 H (11.5-14.0) % Plt Count 328 (150-450) K/mm3 MPV 9.8 (7.5-11.0) fl D-Dimer (215-500) ng/mL Sodium 136 L (137-145) mmol/L Potassium 4.5 (3.5-5.1) mmol/L Chloride 105 (98-107) mmol/L Carbon Dioxide 22 (22-30) mmol/L Anion Gap 13.6 (5-15) MEQ/L BUN 9 (7-17) mg/dL Creatinine 0.28 L (0.52-1.04) mg/dL Estimated GFR > 60.0 ML/MIN Glucose 113 H (74-106) mg/dL Lactic Acid (0.4-2.0) Calcium 9.2 (8.4-10.2) mg/dL Magnesium 1.8 (1.6-2.3) mg/dL Total Bilirubin 0.60 (0.2-1.3) mg/dL AST 24 (14-36) U/L ALT 16 (0-35) U/L Alkaline Phosphatase 256 H (38-126) U/L Troponin I (0.000-0.034) ng/mL NT-Pro-B Natriuret Pep 76.1 (0-450) pg/mL Serum Total Protein 7.1 (6.3-8.2) g/dL Albumin 4.1 (3.5-5.0) g/dL Influenza Type A Ag NEGATIVE (NEGATIVE) Influenza Type B Ag NEGATIVE (NEGATIVE) 06/28/21 06/28/21 06/28/21 Range/Units 13:30 13:28 13:15 WBC (4.0-10.5) K/mm3 RBC (4.1-5.4) M/mm3 Hgb (12.0-16.0) gm/dl Hct (35-47) % MCV (78-100) fl MCH (26-32) pg MCHC (32-36) g/dl RDW (11.5-14.0) % Plt Count (150-450) K/mm3 MPV (7.5-11.0) fl D-Dimer 710 H* (215-500) ng/mL Sodium (137-145) mmol/L Potassium (3.5-5.1) mmol/L Chloride (98-107) mmol/L Carbon Dioxide (22-30) mmol/L Anion Gap (5-15) MEQ/L BUN (7-17) mg/dL Creatinine (0.52-1.04) mg/dL Estimated GFR ML/MIN Glucose (74-106) mg/dL Lactic Acid 1.5 (0.4-2.0) Calcium (8.4-10.2) mg/dL Magnesium (1.6-2.3) mg/dL Total Bilirubin (0.2-1.3) mg/dL AST (14-36) U/L ALT (0-35) U/L Alkaline Phosphatase (38-126) U/L Troponin I < 0.012 (0.000-0.034) ng/mL NT-Pro-B Natriuret Pep (0-450) pg/mL Serum Total Protein (6.3-8.2) g/dL Albumin (3.5-5.0) g/dL Influenza Type A Ag (NEGATIVE) Influenza Type B Ag (NEGATIVE) - Progress Progress: improved Air Movement: fair, poor Progress Note: 06/28/21 16:00 Chest x-ray shows no acute cardiopulmonary process. CTA of the chest shows a consolidation in the right middle lobe lingula concerning for pneumonia. There is no central or large pulmonary embolus. Blood Culture(s) Obtained: Yes Antibiotics given: Yes Counseled pt/family regarding: lab results, diagnosis, need for follow-up, rad results - Departure Departure Disposition: Home Clinical Impression: Right middle lobe pneumonia Condition: Stable Critical Care Time: No Referrals: ADAL LAU [Primary Care Provider] - Follow up/PCP as directed Additional Instructions: Drink plenty of fluids. Take your medication as prescribed. Follow-up tomorrow at the radiology department to obtain ultrasound of the left upper extremity. Call your primary care physician for results of the test Prescriptions: Hydrocodone/Acetaminophen [Hydrocodone-Acetamn 7.5-325/15] 10 ml PO Q8H PRN PRN #120 ml MDD 30 ml PRN Reason: Cough Prednisone 10 mg [Deltasone 10 mg] 10 mg PO TID #12 tablet Azithromycin 250 mg [Zithromax 250 MG TABLET] 250 mg PO ZPACK #6 tablet
[2021-06-28] MEDS ORDERED: HYDROCODONE-ACETAMIN 2.5-108/5 ML SOLUTION PO STA (13:59)
[2021-06-28] MEDS ORDERED: solu-MEDROL 125 MG, Sterile H2O 10 ml 2 ML IV ONE ×2 (14:00)
[2021-06-28 14:02] LABS: Hematocrit 45.6 % (35-47); Hemoglobin 14.5 gm/dl (12.0-16.0); Mean Cell Volume 92.9 fl (78-100); Mean Corpuscular Hemoglobin 29.5 pg (26-32); Mean Corpuscular Hgb Concent. 31.8 g/dl (32-36); Mean Platelet Volume 9.8 fl (7.5-11.0); Platelet Count 328 K/mm3 (150-450); Red Blood Count 4.91 M/mm3 (4.1-5.4); Red Cell Distribution Width 16.5 % (11.5-14.0); White Blood Count 13.6 K/mm3 (4.0-10.5)
[2021-06-28] MEDS ORDERED: HYDROCODONE-ACETAMIN 2.5-108/5 ML SOLUTION ONE (14:14)
[2021-06-28] MEDS ORDERED: solu-MEDROL ONE (14:14)
[2021-06-28 14:27] LABS: ALBUMIN 4.1 g/dL (3.5-5.0); ALKALINE PHOSPHATASE 256 U/L (38-126); ANION GAP 13.6 MEQ/L (5-15); BLOOD UREA NITROGEN 9 mg/dL (7-17); CHLORIDE 105 mmol/L (98-107); Calcium 9.2 mg/dL (8.4-10.2); Carbon Dioxide 22 mmol/L (22-30); Creatinine 1 0.28 mg/dL (0.52-1.04); EST GLOMERULAR FILTRATION RATE > 60.0 ML/MIN; Glucose 113 mg/dL (74-106); MAGNESIUM 1.8 mg/dL (1.6-2.3); NT PRO BNP 76.1 pg/mL (0-450); SGOT/AST 24 U/L (14-36); SGPT/ALT 16 U/L (0-35); SODIUM 136 mmol/L (137-145); Total Protein 7.1 g/dL (6.3-8.2)
[2021-06-28 14:28] LABS: Potassium 4.5 mmol/L (3.5-5.1)
[2021-06-28] MEDS ORDERED: Sodium Chloride 0.9% 500 ML 500 ML IV ONE ×2 (14:32→15:15)
[2021-06-28] MEDS ORDERED: Sodium Chloride 0.9% 500 ML 0 ML IV ONE (14:46)
[2021-06-28 14:58] LABS: INFLUENZA A NEGATIVE (NEGATIVE); INFLUENZA B NEGATIVE (NEGATIVE)
[2021-06-28 15:10] VITALS: PULSE 100
[2021-06-28] MEDS ORDERED: ROCEPHIN 1 Gm-D5w 50 ml Bag** 1 G/50 ML IVPB IV STA (15:59)
[2021-06-28] MEDS ORDERED: ROCEPHIN 1 Gm-D5w 50 ml Bag** 1 G/50 ML IVPB IV ONE (16:05)
[2021-06-28] MEDS ORDERED: ENOXAPARIN SODIUM SQ ONE ×2 (16:06→16:14)
[2021-06-28 16:47] VITALS: BP 131/85; O2SAT 97
[2021-06-28 16:53] LABS: Lymphocytes 19 % (24-44); Monocyte 7 % (0.0-12.0); Neutrophils 74 % (36.0-66.0); Total Cells Counted 100
[2021-06-28 16:54] LABS: ANISOCYTOSIS 1+; Hypochromia 1+; Platelet Estimate NORMAL (NORMAL); Poikilocytosis 1+
--- NOTE | 2021-06-28 19:04 | XRAY ---
Indication: Short of breath. Elevated d-dimer. Pulmonary embolus. History of Keyanna-Malissa syndrome. Multiple contiguous axial images obtained through the chest using 80 cc Isovue 370 contrast and PE protocol. Comparison: None There is good opacification of the pulmonary arteries to include the lobar and segmental branches. Mild respiration artifact limits evaluation for pulmonary embolus. No obvious pulmonary embolus. Heart not enlarged. Aorta is normal in course and caliber. No pathologic mediastinal/hilar lymphadenopathy. Lungs demonstrates inferior medial right upper lobe patchy consolidating airspace disease. Lesser extent of patchy airspace disease in the medial left upper lobe. No effusion. Bony thorax intact with diffuse bony sclerotic/lytic lesions presumed related to patient's history of Keyanna-Malissa syndrome. Partially visualized bilateral breast implants. Limited upper abdomen demonstrates hepatic cysts. Impression: 1. Pulmonary embolus evaluation limited due to respiration artifact. No obvious pulmonary embolus. 2. Bilateral upper lobe patchy airspace disease as detailed. Rule out Covid 19 pneumonia. 3. Bony lesions presumed related to patient's history of Keyanna-Malissa syndrome. 4. Incidental hepatic cysts. Comment: Preliminary interpretation made by [facility]. No critical discrepancy.
--- NOTE | 2021-06-28 19:06 | XRAY ---
Indication: Cough and short of breath. History of Keyanna-Malissa syndrome. Comparison: July 21, 2017. Portable chest demonstrates CT proven bilateral upper lobe patchy airspace disease. Remaining heart and lungs are unremarkable. Visualized osseous structures again demonstrates deformities consistent with patient's history of Keyanna-Malissa syndrome.
== END 2021-06-28 16:48 | disposition home or self-care (01) ==
LOC: ED 12:53
DX: J18.9 Pneumonia, unspecified organism (principal); Z72.0 Tobacco use; R00.0 Tachycardia, unspecified; J44.0 Chronic obstructive pulmonary disease with (acute) lower respiratory infection; Q78.1 Polyostotic fibrous dysplasia; Z79.891 Long term (current) use of opiate analgesic; Z79.52 Long term (current) use of systemic steroids
CPT/HCPCS: 36000; 36415; 71045; 71260; 80053; 83605; 83735; 83880; 84484; 85025; 85379; 87040; 87400; 93005; 93041; 94760; 96365; 96372; 96374; 99284; J0696; J1650; J2930; A9270-GY

== ENCOUNTER 2021-10-19 13:01 | Emergency (ER) | payer MEDICARE ==
[2021-10-19] MEDS ORDERED: Sodium Chloride 0.9% 1000 ML 1,000 ML ONE (13:28)
[2021-10-19] MEDS ORDERED: Sodium Chloride 0.9% 1000 ML 1,000 ML IV SCH (13:30)
--- NOTE | 2021-10-19 14:10 | ERPHSYRPT ---
- History of Present Illness Time Seen by Provider: 10/19/21 13:15 Historian: patient Patient Subjective Stated Complaint: constipated for 4 days and has mid lower abd pain past few days. "states had h/o intestinal blockage with surgery 6 months ago". States surgery done at [facility] by Bam Daniel. Triage Nursing Assessment: AAox3, c/o mid lower abd pain for past few days. h/o bowel obstruction with surgery 6 mos ago. States occasional n/v. Last bm 4 day s ago. States constipated and having difficutly urinating. Physician History: Patient a 36-year-old female presents to emergency department for evaluation of constipation x4 days. Patient states she has a history of small bowel obstruction. Patient had a bowel resection approximately 6 months ago. Patient has been doing well up until 4 days ago when her symptoms recurred. Patient has not had a bowel movement in 4 days. No trauma. No fever. No nausea or vomiting. Patient states that her urine stream is a little slow. However no dysuria or hematuria. Patient has a history of Keyanna-Malissa syndrome. Symptoms are moderate in intensity. Pain worse with palpation to the periumbilical suprapubic region. Patient voices no other complaints or concerns at this time. Timing/Duration: day(s) (4 to 5 days.) Activities at Onset: none Quality: aching Abdominal Pain Onset Location: periumbilical, suprapubic Pain Radiation: no radiation Severity of Pain-Max: moderate Severity of Pain-Current: mild Modifying Factors: Improves With: palpation Associated Symptoms: No diarrhea, No nausea, No neck pain, No syncope, No vomiting, No weakness Previous symptoms: same symptoms as today Allergies/Adverse Reactions: morphine Allergy (Verified 01/12/20 14:08) "HAD SINCE I WAS A KID" Hx Tetanus, Diphtheria Vaccination/Date Given: Yes Hx Influenza Vaccination/Date Given: No Hx Pneumococcal Vaccination/Date Given: No Immunizations Up to Date: No Travel Risk - International Travel Have you traveled outside of the country in past 3 weeks: No - Coronavirus Screening Are you exhibiting any of the following symptoms?: No Symptoms: Vomiting/Diarrhea Close contact with a COVID-19 positive Pt in past 14-21 Days: No - Vaccine Status Have you recieved a Covid-19 vaccination: No - Review of Systems Constitutional: No Symptoms, No Fever, No Chills Eyes: No Symptoms Ears, Nose, & Throat: No Symptoms Respiratory: No Symptoms, No Cough, No Dyspnea Cardiac: No Symptoms, No Chest Pain, No Edema, No Syncope Abdominal/Gastrointestinal: No Symptoms, No Abdominal Pain, No Nausea, No Vomiting, No Diarrhea Genitourinary Symptoms: No Symptoms, No Dysuria Musculoskeletal: No Symptoms, No Back Pain, No Neck Pain Skin: No Symptoms, No Rash Neurological: No Symptoms, No Dizziness, No Focal Weakness, No Sensory Changes Psychological: No Symptoms Endocrine: No Symptoms Hematologic/Lymphatic: No Symptoms Immunological/Allergic: No Symptoms All Other Systems: Reviewed and Negative - Past Medical History Pertinent Past Medical History: Yes Neurological History: Other ENT History: No Pertinent History Cardiac History: No Pertinent History Respiratory History: Asthma, COPD Endocrine Medical History: Hyperthyroidism Musculoskeletal History: Other GI Medical History: No Pertinent History, Gallbladder Disease, Other History: No Pertinent History Psycho-Social History: No Pertinent History Female Reproductive Disorders: No Pertinent History Other Medical History: KEYANNA-MLAISSA SYNDROME history of bowel obstructions Bowel surgery apr 2021 - Past Surgical History Past Surgical History: Yes Neuro Surgical History: No Pertinent History Cardiac: No Pertinent History Respiratory: No Pertinent History Gastrointestinal: Cholecystectomy, Other Genitourinary: No Pertinent History Musculoskeletal: Orthopedic Surgery Female Surgical History: Hysterectomy Other Surgical History: PARTIAL THYROIDECTOMY - Social History Smoking Status: Current every day smoker How long have you smoked: 15 yrs Exposure to second hand smoke: Yes Drug Use: other Patient Lives Alone: No - Female History Hx Last Menstrual Period: Hystertectomy Hx Now: No - Nursing Vital Signs Nursing Vital Signs: Initial Vital Signs Temperature 98.8 F 10/19/21 13:10 Pulse Rate 91 H 10/19/21 13:10 Respiratory Rate 18 10/19/21 13:10 Blood Pressure 124/89 10/19/21 13:10 O2 Sat by Pulse Oximetry 100 10/19/21 13:10 Pain Scale Pain Intensity 6 - Physical Exam General Appearance: no apparent distress, alert Eye Exam: PERRL/EOMI, eyes nml inspection Ears, Nose, Throat Exam: normal ENT inspection, pharynx normal, moist mucous membranes Neck Exam: normal inspection, non-tender, supple, full range of motion Respiratory Exam: normal breath sounds, lungs clear, airway intact, No chest tenderness, No respiratory distress Cardiovascular Exam: regular rate/rhythm, normal heart sounds, normal peripheral pulses Gastrointestinal/Abdomen Exam: soft, tenderness, other (Well-healed surgical scars. Tenderness to palpation just inferior to the umbilicus in the suprapubic region.), No mass, No guarding (No guarding. No pulsatile masses.) Back Exam: normal inspection, normal range of motion, No CVA tenderness, No vertebral tenderness Extremity Exam: normal inspection, normal range of motion, pelvis stable Neurologic Exam: alert, oriented x 3, cooperative, normal mood/affect, nml ce rebellar function, sensation nml, No motor deficits Skin Exam: normal color, warm, dry SpO2 Interpretation: normal SpO2: 100 O2 Delivery: Room Air - Course Nursing assessment & vital signs reviewed: Yes Ordered Tests: Active Orders 24 hr Category Date Time Status IV Insertion STAT Care 10/19/21 13:19 Active ABDOMEN AND PELVIS W CONTRAST [CT] Stat Exams 10/19/21 13:20 Completed CBC W DIFF Stat Lab 10/19/21 14:02 Completed CMP Stat Lab 10/19/21 14:02 Completed HCG,QUALITATIVE URINE Stat Lab 10/19/21 13:54 Completed LIPASE Stat Lab 10/19/21 14:02 Completed TROPONIN Q3H Lab 10/19/21 14:02 Completed TROPONIN Q3H Lab 10/19/21 16:37 Completed TROPONIN Q3H Lab 10/19/21 19:30 Ordered TROPONIN Q3H Lab 10/19/21 22:30 Ordered TROPONIN Q3H Lab 10/20/21 01:30 Ordered Medication Summary Generic Name Dose Route Start Last Admin Trade Name Freq PRN Reason Stop Dose Admin Sodium Chloride 1,000 mls @ 100 mls/hr 10/19/21 13:30 10/19/21 13:30 Sodium Chloride 0.9% 1000 Ml IV 11/18/21 13:29 100 mls/hr .Q10H WILFREDO Administration Discontinued Medications Generic Name Dose Route Start Last Admin Trade Name Freq PRN Reason Stop Dose Admin Hydromorphone HCl 0.5 mg 10/19/21 14:25 10/19/21 14:39 Hydromorphone 1 Mg/1ml Inj 1 Mg/Ml Syringe IV 10/19/21 14:26 0.5 mg STAT ONE Administration Hydromorphone HCl Confirm 10/19/21 14:38 Hydromorphone 1 Mg/1ml Inj 1 Mg/Ml Syringe Administered 10/19/21 14:39 Dose 1 mg .ROUTE .STK-MED ONE Hydromorphone HCl 0.5 mg 10/19/21 16:07 10/19/21 16:14 Hydromorphone 1 Mg/1ml Inj 1 Mg/Ml Syringe IV 10/19/21 16:08 0.5 mg STAT ONE Administration Hydromorphone HCl Confirm 10/19/21 16:13 Hydromorphone 1 Mg/1ml Inj 1 Mg/Ml Syringe Administered 10/19/21 16:14 Dose 1 mg .ROUTE .STK-MED ONE Lab/Rad Data: Laboratory Result Diagrams 10/19/21 14:02 10/19/21 14:02 Laboratory Results 10/19/21 10/19/21 10/19/21 Range/Units 16:37 14:02 14:02 WBC (4.0-10.5) K/mm3 RBC (4.1-5.4) M/mm3 Hgb (12.0-16.0) gm/dl Hct (35-47) % MCV (78-100) fl MCH (26-32) pg MCHC (32-36) g/dl RDW (11.5-14.0) % Plt Count (150-450) K/mm3 MPV (7.5-11.0) fl Gran % (36.0-66.0) % Eos # (Auto) (0-0.5) Absolute Lymphs (auto) (1.0-4.6) Absolute Monos (auto) (0.0-1.3) Lymphocytes % (24.0-44.0) % Monocytes % (0.0-12.0) % Eosinophils % (0.00-5.0) % Basophils % (0.0-0.4) % Absolute Granulocytes (1.4-6.9) Basophils # (0-0.4) Sodium 138 (137-145) mmol/L Potassium 3.8 (3.5-5.1) mmol/L Chloride 104 (98-107) mmol/L Carbon Dioxide 24 (22-30) mmol/L Anion Gap 14.4 (5-15) MEQ/L BUN 16 (7-17) mg/dL Creatinine 0.28 L (0.52-1.04) mg/dL Estimated GFR > 60.0 ML/MIN Glucose 96 (74-106) mg/dL Calcium 9.1 (8.4-10.2) mg/dL Total Bilirubin 0.50 (0.2-1.3) mg/dL AST 18 (14-36) U/L ALT 17 (0-35) U/L Alkaline Phosphatase 243 H (38-126) U/L Troponin I < 0.012 < 0.012 (0.000-0.034) ng/mL Serum Total Protein 7.1 (6.3-8.2) g/dL Albumin 4.0 (3.5-5.0) g/dL Lipase 112 (23-300) U/L Urinalys Dipstick Clnc Urine Color (YELLOW) Urine Appearance (CLEAR) Urine pH (5-6) Ur Specific [place] (1.005-1.025) POC Urine Protein Conf (Negative) Urine Ketones (NEGATIVE) Urine Nitrite (NEGATIVE) Urine Bilirubin (NEGATIVE) Urine Urobilinogen (0-1) mg/dL Urine Leukocytes (NEGATIVE) Urine WBC (Auto) (0-5) /HPF Urine RBC (Auto) (0-2) /HPF U Epithel Cells (Auto) (FEW) /HPF Urine Bacteria (Auto) (NEGATIVE) /HPF Urine RBC (0-5) Jourdan/ul Urine Mucus (Auto) (NEGATIVE) /HPF Ur Culture Indicated? Urine Glucose (NEGATIVE) mg/dL Urine HCG, Qual (Negative) 10/19/21 10/19/21 10/19/21 Range/Units 14:02 13:54 13:54 WBC 12.9 H (4.0-10.5) K/mm3 RBC 4.88 (4.1-5.4) M/mm3 Hgb 15.0 (12.0-16.0) gm/dl Hct 46.2 (35-47) % MCV 94.7 (78-100) fl MCH 30.7 (26-32) pg MCHC 32.5 (32-36) g/dl RDW 17.5 H (11.5-14.0) % Plt Count 347 (150-450) K/mm3 MPV 9.7 (7.5-11.0) fl Gran % 72.4 H (36.0-66.0) % Eos # (Auto) 0.09 (0-0.5) Absolute Lymphs (auto) 2.32 (1.0-4.6) Absolute Monos (auto) 1.13 (0.0-1.3) Lymphocytes % 18.0 L (24.0-44.0) % Monocytes % 8.8 (0.0-12.0) % Eosinophils % 0.7 (0.00-5.0) % Basophils % 0.1 (0.0-0.4) % Absolute Granulocytes 9.31 H (1.4-6.9) Basophils # 0.01 (0-0.4) Sodium (137-145) mmol/L Potassium (3.5-5.1) mmol/L Chloride (98-107) mmol/L Carbon Dioxide (22-30) mmol/L Anion Gap (5-15) MEQ/L BUN (7-17) mg/dL Creatinine (0.52-1.04) mg/dL Estimated GFR ML/MIN Glucose (74-106) mg/dL Calcium (8.4-10.2) mg/dL Total Bilirubin (0.2-1.3) mg/dL AST (14-36) U/L ALT (0-35) U/L Alkaline Phosphatase (38-126) U/L Troponin I (0.000-0.034) ng/mL Serum Total Protein (6.3-8.2) g/dL Albumin (3.5-5.0) g/dL Lipase (23-300) U/L Urinalys Dipstick Clnc MAIN LAB Urine Color YELLOW (YELLOW) Urine Appearance CLEAR (CLEAR) Urine pH 6.0 (5-6) Ur Specific [place] 1.025 (1.005-1.025) POC Urine Protein Conf 30 (Negative) Urine Ketones NEGATIVE (NEGATIVE) Urine Nitrite NEGATIVE (NEGATIVE) Urine Bilirubin SMALL (NEGATIVE) Urine Urobilinogen 0.2 (0-1) mg/dL Urine Leukocytes NEGATIVE (NEGATIVE) Urine WBC (Auto) 0-2 (0-5) /HPF Urine RBC (Auto) 0-2 (0-2) /HPF U Epithel Cells (Auto) NONE (FEW) /HPF Urine Bacteria (Auto) RARE (NEGATIVE) /HPF Urine RBC NEGATIVE (0-5) Jourdan/ul Urine Mucus (Auto) SLIGHT (NEGATIVE) /HPF Ur Culture Indicated? NO Urine Glucose NEGATIVE (NEGATIVE) mg/dL Urine HCG, Qual NEGATIVE (Negative) - Progress Progress: improved Progress Note: Patient reassessed. She feels well. Work-up reveals enteritis. No obstruction. Laboratory work-up essentially nonremarkable. Patient tolerating p.o. Case discussed with Dr. Grupo Daniel who will see patient in the office tomorrow morning in [place]. Plan of care discussed with patient. She states she will see Dr. Daniel tomorrow as planned. Patient is calling her father to pick her up. She voices no other complaints or concerns at this time. Will discharge home. Portions of this note were created with voice recognition technology. There may be grammatical, spelling, punctuation or sound alike errors 10/19/21 18:[address] Miguel Will see patient in: hospital (observation) Counseled pt/family regarding: lab results, diagnosis, need for follow-up, rad results - Departure Departure Disposition: Home Clinical Impression: Enteritis, Leukocytosis, Hepatic cyst, Adenoma of left adrenal gland, Fecal debris Condition: Stable Critical Care Time: No Referrals: [facility] [ACTIVE STAFF] - Follow up/PCP as directed Instructions: Acute Abdomen (Belly Pain), Adult (DC) Additional Instructions: Please follow-up with your primary care doctor regarding your adrenal adenoma. Please see Dr. Daniel in in his [place] office tomorrow morning. Call first thing in the morning for an appointment time. Discharge/Care Plan LENIN MYERS was seen on 10/19/21 in the Emergency Room. The patient was counseled regarding Diagnosis,Lab results, Imaging studies, need for follow up and when to return to the Emergency Room. Prescriptions given: Discharge Note I have spoken with the patient and/or caregivers. I have explained the patient's condition, diagnosis and treatment plan based on the information available to me at this time. I have answered the patient's and/or caregiver's questions and addressed any concerns. The patient and/or caregivers have as good understanding of the patient's diagnosis, condition and treatment plan as can be expected at this point. The vital signs have been stable. The patient's condition is stable and appropriate for discharge from the emergency department. The patient will pursue further outpatient evaluation with the primary care physician or other designated or consulting physician as outlined in the discharge instructions. The patient and/or caregivers are agreeable to this plan of care and follow-up instructions have been explained in detail. The patient and/or caregivers have received these instruction. The patient/and or caregivers are aware that any significant change in condition or worsening of symptoms should prompt an immediate return to this or the closest emergency department or call 911.
[2021-10-19 14:20] LABS: Bacteria RARE /HPF (NEGATIVE); Mucus SLIGHT /HPF (NEGATIVE); RBC 0-2 /HPF (0-2); WBC 0-2 /HPF (0-5)
[2021-10-19 14:24] LABS: Appearance CLEAR (CLEAR); Bilirubin SMALL (NEGATIVE); Glucose NEGATIVE (NEGATIVE); Ketones NEGATIVE (NEGATIVE); RBC NEGATIVE Ery/ul (0-5); Specific Gravity 1.025 (1.005-1.025)
[2021-10-19 14:25] LABS: Nitrite NEGATIVE (NEGATIVE); Protein,Urine Dip 30 (Negative); Urine Cultured Indicated? NO; Urobilinogen 0.2 mg/dL (0-1)
[2021-10-19] MEDS ORDERED: Hydromorphone 1 mg/ml Injection IV ONE ×2 (14:25→16:07)
[2021-10-19 14:27] LABS: ALKALINE PHOSPHATASE 243 U/L (38-126); ANION GAP 14.4 MEQ/L (5-15); BLOOD UREA NITROGEN 16 mg/dL (7-17); CHLORIDE 104 mmol/L (98-107); Calcium 9.1 mg/dL (8.4-10.2); Carbon Dioxide 24 mmol/L (22-30); Creatinine 1 0.28 mg/dL (0.52-1.04); EST GLOMERULAR FILTRATION RATE > 60.0 ML/MIN; Glucose 96 mg/dL (74-106); LIPASE 112 U/L (23-300); Potassium 3.8 mmol/L (3.5-5.1); SGOT/AST 18 U/L (14-36); SGPT/ALT 17 U/L (0-35); SODIUM 138 mmol/L (137-145); Total Protein 7.1 g/dL (6.3-8.2)
[2021-10-19] MEDS ORDERED: Hydromorphone 1 mg/ml Injection ONE ×2 (14:38→16:13)
[2021-10-19 14:51] LABS: Absolute Neutrophil Ct (ANC) 9.31 (1.4-6.9); Basophil (Absolute #) 0.01 (0-0.4); Eosinophil % 0.7 % (0.00-5.0); Eosinophil (Absolute #) 0.09 (0-0.5); Hematocrit 46.2 % (35-47); Lymphocyte (Absolute #) 2.32 (1.0-4.6); Mean Cell Volume 94.7 fl (78-100); Mean Corpuscular Hemoglobin 30.7 pg (26-32); Mean Corpuscular Hgb Concent. 32.5 g/dl (32-36); Mean Platelet Volume 9.7 fl (7.5-11.0); Monocyte (Absolute #) 1.13 (0.0-1.3); Monocytes % 8.8 % (0.0-12.0); Neutrophil % 72.4 % (36.0-66.0); Platelet Count 347 K/mm3 (150-450); Red Blood Count 4.88 M/mm3 (4.1-5.4); Red Cell Distribution Width 17.5 % (11.5-14.0); White Blood Count 12.9 K/mm3 (4.0-10.5)
[2021-10-19 16:35] LABS: Dipstick done @ ? MAIN LAB
--- NOTE | 2021-10-19 16:50 | XRAY ---
Indication: Abdomen/rectal pain 5 days. Elevated WBC. Nausea, vomiting, and constipation. History of Keyanna-Malissa syndrome. Multiple contiguous images obtained through the abdomen and pelvis using 65 cc Isovue 370 contrast. Comparison: January 12, 2020. Lung bases clear. Heart not enlarged. 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 Noncontrasted stomach and visualized bowel loops nonobstructed. Several small bowel loops are again mildly fluid distended with fluid leveling and mild wall thickening favoring enteritis. No free fluid/air. Appendix not visualized. There is now mild diffuse scatter colonic fecal debris throughout. Again hepatic cysts, 2.4 cm left adrenal adenoma, cholecystectomy, and hysterectomy. Remaining liver, pancreas, spleen, adrenal glands, kidneys, ureters, bladder, and aorta are unremarkable. No pathologic retroperitoneal lymphadenopathy. Osseous structures intact again with diffuse bony sclerotic/lytic lesions consistent with clinically reported Keyanna-[place] syndrome. Impression: 1. Pelvis again limited due to extreme beam artifact from bilateral total hip arthroplasty. 2. Again mild fluid distended small bowel loops with wall thickening favoring enteritis. 3. Stable hepatic cysts, left adrenal adenoma, and chronic bony findings.
[2021-10-19 18:35] VITALS: BP 118/84
[2021-10-19 18:47] VITALS: PULSE 103; O2SAT 97
== END 2021-10-19 18:55 | disposition home or self-care (01) ==
LOC: ED 13:01
DX: K52.9 Noninfective gastroenteritis and colitis, unspecified (principal); D72.829 Elevated white blood cell count, unspecified; K76.89 Other specified diseases of liver; D35.02 Benign neoplasm of left adrenal gland; K59.00 Constipation, unspecified; Q78.1 Polyostotic fibrous dysplasia; R10.33 Periumbilical pain; R10.2 Pelvic and perineal pain; Z72.0 Tobacco use
CPT/HCPCS: 36000; 36415; 74177; 80053; 81015; 83690; 84484; 84703; 85025; 96374; 96375; 96376; 99284; J1170

== ENCOUNTER 2023-06-26 14:19 | Emergency (ER) | payer MEDICARE ==
[2023-06-26] MEDS ORDERED: Zofran 4 MG/2 ML VIAL IV ONE (14:29)
[2023-06-26] MEDS ORDERED: Sodium Chloride 0.9% 1000 ML 1,000 ML IV STA (14:29)
[2023-06-26] MEDS ORDERED: Hydromorphone 1 mg/ml Injection IV ONE (14:29)
[2023-06-26 14:39] VITALS: TEMP 98.2
[2023-06-26] MEDS ORDERED: Zofran 4 MG/2 ML VIAL ONE (14:41)
[2023-06-26] MEDS ORDERED: Sodium Chloride 0.9% 1000 ML 1,000 ML ONE (14:41)
[2023-06-26] MEDS ORDERED: Hydromorphone 1 mg/ml Injection ONE (14:41)
[2023-06-26 14:56] LABS: BASOPHIL % 0.6 % (0.0-0.4); Basophil (Absolute #) 0.03 x10^3/uL (0-0.4); Eosinophil % 1.7 % (0.00-5.0); Eosinophil (Absolute #) 0.08 x10^3/uL (0-0.5); Hematocrit 50.5 % (35-47); Hemoglobin 16.7 g/dL (12.0-16.0); IMMATURE GRAN # 0.01 x10^3u/L (0.00-0.03); IMMATURE GRAN % 0.2 % (0.00-0.4); Lymphocyte (Absolute #) 1.68 x10^3/uL (1.0-4.6); Lymphocytes % 35.4 % (24.0-44.0); Mean Cell Volume 96.6 fL (78-100); Mean Corpuscular Hemoglobin 31.9 pg (26-32); Mean Corpuscular Hgb Concent. 33.1 g/dL (32-36); Mean Platelet Volume 9.4 fL (7.5-11.0); Monocyte (Absolute #) 0.54 x10^3/uL (0.0-1.3); Monocytes % 11.4 % (0.0-12.0); Neutrophil % 50.7 % (36.0-66.0); Platelet Count 237 x10^3/uL (150-450); Red Blood Count 5.23 x10^6/uL (4.1-5.4); Red Cell Distribution Width 16.1 % (11.5-14.0); White Blood Count 4.7 x10^3/uL (4.0-10.5)
[2023-06-26 15:12] LABS: ALBUMIN 3.9 g/dL (3.5-5.0); ANION GAP 11.5 MEQ/L (5-15); BILIRUBIN,TOTAL 0.5 mg/dL (0.2-1.3); Calcium 8.7 mg/dL (8.4-10.2); Creatinine 1 0.51 mg/dL (0.52-1.04); EST GLOMERULAR FILTRATION RATE 121.7 ML/MIN
[2023-06-26 15:29] LABS: ADD URINE CULTURE? YES (NO); Appearance Cloudy (Clear); Bacteria Rare /HPF (None Seen); Bilirubin Small (Negative); Blood Negative (Negative); Epithelial Cells Few /HPF (None Seen); Glucose, Urine 100 mg/dL (Negative); Hyaline Casts 0-2 /LPF (0-2); Ketones Trace (Negative); Leukocyte Esterase Negative (Negative); Nitrite Negative (Negative); Ph 5.5 (4.6-8.0); Protein,Urine Dip 100 (Negative); RBC 0-2 /HPF (0-5); Specific Gravity 1.025 (1.005-1.030); WBC 0-2 /HPF (0-5)
[2023-06-26 16:00] VITALS: O2SAT 93
--- NOTE | 2023-06-26 16:11 | ERPHSYRPT ---
- History of Present Illness Time Seen by Provider: 06/26/23 14:23 Historian: patient Exam Limitations: no limitations Patient Subjective Stated Complaint: Abdominal pain Triage Nursing Assessment: Patient brought into ED per EMS and transferred to bed with assist of 2. Patient A+O X 3. Patient's skin pink, warm and dry. EMS states patient was in bathtub when they arrived with abdominal pain and unable to get out of tub. Patient states her abdominal pain started a few days ago that has gotten worse. Patient states laying in a warm bath helps the pain. Patient complains of abdominal pain 5/10. Patient also complains of nausea, but denies vomiting or diarrhea. Abdomen soft and round with BS X 4. Physician History: 37-year-old female with history of Eben-Jay syndrome, IBD, chronic abdominal pain, chronic arthritis presented in the ER with abdominal pain off and on for the last few days with progressive worsening since yesterday. Patient reports nausea with dry heaving but no vomiting or diarrhea. Pain is all over the abdomen moderate to severe sharp with partial relief being sitting in a hot tub. Denies any fever or chills. No known sick contact. Allergies/Adverse Reactions: morphine Allergy (Verified 06/26/23 14:32) "HAD SINCE I WAS A KID" Hx Tetanus, Diphtheria Vaccination/Date Given: Yes Hx Influenza Vaccination/Date Given: No Hx Pneumococcal Vaccination/Date Given: No Immunizations Up to Date: Yes Travel Risk - International Travel Have you traveled outside of the country in past 3 weeks: No - Coronavirus Screening Are you exhibiting any of the following symptoms?: No Close contact with a COVID-19 positive Pt in past 14-21 Days: No - Vaccine Status Have you recieved a Covid-19 vaccination: No - Review of Systems Constitutional: No Symptoms Eyes: No Symptoms Ears, Nose, & Throat: No Symptoms Respiratory: No Symptoms Cardiac: No Symptoms Abdominal/Gastrointestinal: Abdominal Pain, Nausea Genitourinary Symptoms: No Symptoms Musculoskeletal: Arthralgias Skin: No Symptoms Neurological: No Symptoms Hematologic/Lymphatic: No Symptoms Immunological/Allergic: No Symptoms - Past Medical History Pertinent Past Medical History: Yes Neurological History: Other ENT History: No Pertinent History Cardiac History: No Pertinent History Respiratory History: Asthma, COPD Endocrine Medical History: Hyperthyroidism Musculoskeletal History: Other GI Medical History: No Pertinent History, Gallbladder Disease, Other History: No Pertinent History Psycho-Social History: No Pertinent History Female Reproductive Disorders: No Pertinent History Other Medical History: EBEN-JAY SYNDROME history of bowel obstructions Bowel surgery apr 2021 - Past Surgical History Past Surgical History: Yes Neuro Surgical History: No Pertinent History Cardiac: No Pertinent History Respiratory: No Pertinent History Gastrointestinal: Cholecystectomy, Other Genitourinary: No Pertinent History Musculoskeletal: Orthopedic Surgery Female Surgical History: Hysterectomy Other Surgical History: PARTIAL THYROIDECTOMY - Social History Smoking Status: Current every day smoker How long have you smoked: 15 yrs Exposure to second hand smoke: Yes Drug Use: marijuana, other Patient Lives Alone: No - Female History Hx Last Menstrual Period: hysterectomy Hx Now: (unkn) - Nursing Vital Signs Nursing Vital Signs: Initial Vital Signs Temperature 98.2 F 06/26/23 14:32 Pulse Rate 107 H 06/26/23 14:32 Respiratory Rate 18 06/26/23 14:32 Blood Pressure 95/61 06/26/23 14:32 O2 Sat by Pulse Oximetry 96 06/26/23 14:32 Pain Scale Pain Intensity 5 - Physical Exam General Appearance: no apparent distress, alert Eye Exam: PERRL/EOMI Ears, Nose, Throat Exam: normal ENT inspection, TMs normal, pharynx normal, mo ist mucous membranes Neck Exam: normal inspection, non-tender, full range of motion Respiratory Exam: normal breath sounds, lungs clear Cardiovascular Exam: regular rate/rhythm, normal heart sounds Gastrointestinal/Abdomen Exam: soft, normal bowel sounds, tenderness (Generalized) Extremity Exam: normal inspection, normal range of motion Neurologic Exam: alert, oriented x 3, cooperative Skin Exam: normal color SpO2 Interpretation: normal SpO2: 93 O2 Delivery: Room Air Ordered Tests: Active Orders 24 hr Category Date Time Status IV Insertion STAT Care 06/26/23 14:29 Active NPO (ED) STAT Care 06/26/23 14:29 Active ABDOMEN AND PELVIS W CONTRAST [CT] Stat Exams 06/26/23 15:27 Completed CBC W DIFF Stat Lab 06/26/23 14:45 Completed CMP Stat Lab 06/26/23 14:45 Completed CULTURE,URINE Stat Lab 06/26/23 14:32 Received LIPASE Stat Lab 06/26/23 14:45 Completed UA W/RFX UR CULTURE Stat Lab 06/26/23 14:32 Completed Medication Summary Discontinued Medications Generic Name Dose Route Start Last Admin Trade Name Freq PRN Reason Stop Dose Admin Hydromorphone HCl 1 mg 06/26/23 14:29 06/26/23 14:43 Hydromorphone 1 Mg/1ml Inj IV 06/26/23 14:30 1 mg STAT ONE Administration Hydromorphone HCl Confirm 06/26/23 14:41 Hydromorphone 1 Mg/1ml Inj Administered 06/26/23 14:42 Dose 1 mg .ROUTE .STK-MED ONE Sodium Chloride 1,000 mls @ 999 mls/hr 06/26/23 14:29 06/26/23 15:57 Sodium Chloride 0.9% 1000 Ml IV 06/26/23 15:29 Infused .Q1H1M STA Infusion Sodium Chloride Confirm 06/26/23 14:41 Sodium Chloride 0.9% 1000 Ml Administered 06/26/23 14:42 Dose 1,000 mls @ ud .ROUTE .STK-MED ONE Ondansetron HCl 4 mg 06/26/23 14:29 06/26/23 14:42 Ondansetron Hcl 4 Mg/2 Ml Vial IV 06/26/23 14:30 4 mg STAT ONE Administration Ondansetron HCl Confirm 06/26/23 14:41 Ondansetron Hcl 4 Mg/2 Ml Vial Administered 06/26/23 14:42 Dose 4 mg .ROUTE .STK-MED ONE Lab/Rad Data: Laboratory Result Diagrams 06/26/23 14:45 06/26/23 14:45 Laboratory Results 06/26/23 06/26/23 06/26/23 Range/Units 14:45 14:45 14:32 WBC 4.7 (4.0-10.5) x10^3/uL RBC 5.23 (4.1-5.4) x10^6/uL Hgb 16.7 H (12.0-16.0) g/dL Hct 50.5 H (35-47) % MCV 96.6 (78-100) fL MCH 31.9 (26-32) pg MCHC 33.1 (32-36) g/dL RDW 16.1 H (11.5-14.0) % Plt Count 237 (150-450) x10^3/uL MPV 9.4 (7.5-11.0) fL Gran % 50.7 (36.0-66.0) % Immature Gran % (Auto) 0.2 (0.00-0.4) % Nucleat RBC Rel Count 0.0 (0.00-0.1) % Eos # (Auto) 0.08 (0-0.5) x10^3/uL Immature Gran # (Auto) 0.01 (0.00-0.03) x10^3u/L Absolute Lymphs (auto) 1.68 (1.0-4.6) x10^3/uL Absolute Monos (auto) 0.54 (0.0-1.3) x10^3/uL Absolute Nucleated RBC 0.00 (0.00-0.01) x10^3u/L Lymphocytes % 35.4 (24.0-44.0) % Monocytes % 11.4 (0.0-12.0) % Eosinophils % 1.7 (0.00-5.0) % Basophils % 0.6 (0.0-0.4) % Absolute Granulocytes 2.40 (1.4-6.9) x10^3/uL Basophils # 0.03 (0-0.4) x10^3/uL Sodium 136 L (137-145) mmol/L Potassium 4.0 (3.5-5.1) mmol/L Chloride 106 (98-107) mmol/L Carbon Dioxide 22 (22-30) mmol/L Anion Gap 11.5 (5-15) MEQ/L BUN 25 H (7-17) mg/dL Creatinine 0.51 L (0.52-1.04) mg/dL Estimated GFR 121.7 ML/MIN Glucose 111 H (74-106) mg/dL Calcium 8.7 (8.4-10.2) mg/dL Total Bilirubin 0.50 (0.2-1.3) mg/dL AST 27 (14-36) U/L ALT 26 (0-35) U/L Alkaline Phosphatase 245 H (38-126) U/L Serum Total Protein 7.0 (6.3-8.2) g/dL Albumin 3.9 (3.5-5.0) g/dL Lipase 187 (23-300) U/L Urine Color Dark Yellow A (Yellow) Urine Appearance Cloudy A (Clear) Urine pH 5.5 (4.6-8.0) Ur Specific [place] 1.025 (1.005-1.030) Urine Protein 100 A (Negative) Urine Glucose (UA) 100 A (Negative) mg/dL Urine Ketones Trace A (Negative) Urine Blood Negative (Negative) Urine Nitrite Negative (Negative) Urine Bilirubin Small A (Negative) Urine Urobilinogen 1.0 A (0.2) mg/dL Ur Leukocyte Esterase Negative (Negative) U Hyaline Cast (Auto) 0-2 (0-2) /LPF Urine Microscopic RBC 0-2 (0-5) /HPF Urine Microscopic WBC 0-2 (0-5) /HPF Ur Epithelial Cells Few (None Seen) /HPF Urine Bacteria Rare A (None Seen) /HPF Urine Culture Reflexed YES (NO) - Progress Progress: improved, re-examined Progress Note: 06/26/23 1800 37-year-old is evaluated for worsening abdominal pain all over. She is given fluids and symptomatic treatment, acute abdomen workup is obtained. Workup showed normal white count, fairly unremarkable chemistries except for elevated ALP. No definitive UTI. I have obtained CT abdomen pelvis with contrast which did not show any acute abdominal pelvic findings but does have some chronic/incidental findings of lung nodule, hepatic cyst, adrenal and bone/osseous lesions which needs further evaluation outpatient to make sure patient does not have any primary source. Some of these findings have been there on the previous CAT scans as well. Patient is aware of hepatic cysts, adrenal and bony lesion but unsure about lung nodule. On reevaluation she is feeling much better, abdominal exam is soft with minimal tenderness to deep palpation and good bowel sounds. She is being discharged with outpatient primary care follow-up for abdominal pain and further evaluation of above findings. I have discussed with patient in detail about CAT scan findings and lab work and need for outpatient follow-up to further investigation which she un derstand and agrees. Counseled pt/family regarding: lab results, diagnosis, need for follow-up, rad results Medical Desision Making - Independent Historian Additional History obtained from: Circus Trainer/EMT - Diagnostic Testing Diagnostic test were ordered, analyzed, and reviewed by me: Yes Radiological Interpretation: Reviewed by me, Teleradiologist Report - Risk of complications The pt has a mod risk of morbidity or mortality based on: Need for prescription drug management - Departure Departure Disposition: Home Clinical Impression: Eben Bridge[place] syndrome, Generalized abdominal pain, Hepatic cyst, Adrenal mass, Lung nodule seen on imaging study Condition: Stable Critical Care Time: No Referrals: DOCTOR,NO FAMILY [Primary Care Provider] - Follow up/PCP as directed Instructions: Abdominal pain Additional Instructions: Take pain medications as needed. Take Zofran as needed. Follow-up with primary care for further reevaluation of abdominal pain and also for evaluation of lung nodule/adrenal mass/bony lesions and hepatic cysts to make sure you do not have any cancerous lesions. Return to ER for any worsening. Prescriptions: Ondansetron ODT 4 MG [Zofran Odt 4 mg] 1 ea PO QIDPRN PRN #7 tablet PRN Reason: n/v
--- NOTE | 2023-06-26 17:04 | XRAY ---
CLINICAL HISTORY:abd pain COMPARISON:Compared to the previous study dated 10/19/2021. TECHNIQUE:CT scan of the abdomen and pelvis was performed with IV contrast. 80 cc Isovue 370 by IV. Coronal and sagittal reconstructive images were also obtained. FINDINGS: Abdomen: Limited study of the pelvis due to beam hardening artifacts caused by bilateral hip prosthesis. The liver is enlarged in size and measures 18 cm in the CC dimension. It shows multiple cystic hypodensities the largest is macrolobulated measuirng 1.4 x 1.1 cm in subsegment VIII. The portal vein is normal. There is redemonstration of suspicious soft tissue density nodules in both adrenal glands. A suspicious soft tissue density focus is also noted in the right adrenal gland. The spleen and pancreas are unremarkable. The kidneys are unremarkable. They are normal in size and shape. No calculi or hydronephrosis. The gallbladder is surgically removed. The CBD is dilated measuirng 16 mm at the chantale hepatis with moderate central intrahepatic biliary radicle dilatation. The ascending colon, the transverse colon, the descending colon, visualized small bowel loops are unremarkable. The appendix is not clearly delineated. There is no evidence of significant enlargement of the mesenteric or retroperitoneal lymph nodes. Scanned lung bases show a denovo right middle lobe 8.5 mm lobulated nodule. The visualized skeleton shows diffuse heterogeneity with sclerotic and lyitc well defined lesions most showing narrow zone of transition. Horizontally oriented sacrum. Pelvis: Multiple hyperdense surgical clips noted in the pelvis along the distal small bowel loops with proximal mildly dilated small bowel loop segment reaching 3.5 cm which was seen on previous study as well. Resolution of the preiovusly noted mutiloculated peripherally enhancing soft tissue collections within the presacral space. The urinary bladder is empty. The rectosigmoid colon is unremarkable. The uterus is surgically removed. The pelvic vasculature is unremarkable. No evidence of pelvic lymphadenopathy. IMPRESSION: 1. Scanned lung bases show a denovo right middle lobe 8.5 mm lobulated nodule. 2. Hepatomegaly with multiple hepatic cysts appearing stable. 3. Redemostration of dilated CBD with central moderate intrahepatic biliary radicle dilatation. 4. Redemonstration of suspicious soft tissue density nodules in both adrenal glands. 5. Diffusely heterogenous visualized osseous skeleton with lyitc/sclerotic foci appearing of stable course for clinical correlation. 6. Resolution of the preiovusly noted mutiloculated peripherally enhancing soft tissue collections within the presacral space. 7. The findings of right lung nodule, hepatic and bone lesions, and suspicious adrenal nodules are worrisome for metastases if within proven primary malignancy. Clinical correlation is suggested. Comapred to the previous study dated 10/19/2021. Electronically Signed by: Darin Gomez MD. (06/26/2023 17:00:36 EST)
[2023-06-26 17:07] VITALS: BP 118/75; PULSE 86; RESP 25
== END 2023-06-26 18:15 | disposition home or self-care (01) ==
LOC: ED 14:19
DX: Q78.1 Polyostotic fibrous dysplasia (principal); R10.84 Generalized abdominal pain; K76.89 Other specified diseases of liver; E27.8 Other specified disorders of adrenal gland; R91.1 Solitary pulmonary nodule; R11.0 Nausea; Z28.310 Unvaccinated for COVID-19; Z72.0 Tobacco use
CPT/HCPCS: 36415; 74177; 80053; 81001; 83690; 85025; 87086; 96360; 96374; 96375; 99284; J1170; J2405

== ENCOUNTER 2023-12-16 15:50 | Emergency (ER) | payer MEDICARE ==
[2023-12-16 16:04] VITALS: TEMP 97.9
[2023-12-16] MEDS ORDERED: TORAdol 30 mg Injection ONE (16:24)
[2023-12-16] MEDS ORDERED: Sodium Chloride 0.9% 1000 ML 1,000 ML ONE (16:24)
[2023-12-16] MEDS ORDERED: DECADRON 10MG INJ. ONE (16:24)
[2023-12-16] MEDS ORDERED: BABY ASPIRIN 81 MG CHEW ONE (16:24)
[2023-12-16] MEDS ORDERED: DUONEB 0.5-3 MG/3 ml Neb IH ONE (16:26)
[2023-12-16] MEDS: Sodium Chloride 0.9% 1000 ML 1,000 ML IV STA (16:28)
[2023-12-16] MEDS: BABY ASPIRIN 81 MG CHEW PO ONE (16:28)
[2023-12-16] MEDS: DUONEB 0.5-3 MG/3 ml Neb IH ONE (16:28)
[2023-12-16] MEDS: TORAdol 30 mg Injection IV ONE (16:29)
[2023-12-16] MEDS: DECADRON 10MG INJ. IV ONE (16:29)
[2023-12-16 16:34] LABS: Absolute Neutrophil Ct (ANC) 4.02 x10^3/uL (1.56-6.13); BASOPHIL % 0.6 % (0.1-1.2); Basophil (Absolute #) 0.04 x10^3/uL (0.01-0.08); Eosinophil % 1.2 % (0.7-5.8); Eosinophil (Absolute #) 0.09 x10^3/uL (0.04-0.36); Hematocrit 49.5 % (34.1-44.9); Hemoglobin 16.6 g/dL (11.2-15.7); IMMATURE GRAN # 0.02 x10^3u/L (0.001-0.031); IMMATURE GRAN % 0.3 % (0.001-0.429); Lymphocyte (Absolute #) 2.58 x10^3/uL (1.18-3.74); Lymphocytes % 35.7 % (19.3-51.7); Mean Cell Volume 94.8 fL (79.4-94.8); Mean Corpuscular Hemoglobin 31.8 pg (25.6-32.2); Mean Corpuscular Hgb Concent. 33.5 g/dL (32.2-35.5); Mean Platelet Volume 9.3 fL (9.4-12.3); Monocyte (Absolute #) 0.47 x10^3/uL (0.24-0.86); Monocytes % 6.5 % (4.7-12.5); Neutrophil % 55.7 % (34.0-71.1); Platelet Count 302 x10^3/uL (182-369); Red Blood Count 5.22 x10^6/uL (3.93-5.22); Red Cell Distribution Width 15.4 % (11.7-14.4); White Blood Count 7.2 x10^3/uL (3.98-10.04)
--- NOTE | 2023-12-16 16:48 | XRAY ---
Indication: Chest pain. History of Keyanna-Malissa syndrome. Comparison: June 28, 2021 Potable chest again hyperinflated and is now clear. Heart not enlarged. Bony thorax intact again with bony deformities consistent patient's history of Keyanna-Malissa syndrome. Impression: Nonacute chest with chronic bony features.
[2023-12-16 17:11] LABS: ALBUMIN 4.2 g/dL (3.5-5.0); ANION GAP 11.5 MEQ/L (5-15); BILIRUBIN,TOTAL 0.6 mg/dL (0.2-1.3); Calcium 9.3 mg/dL (8.4-10.2); Creatinine 1 0.45 mg/dL (0.52-1.04); EST GLOMERULAR FILTRATION RATE 124.7 ML/MIN; Potassium 4.4 mmol/L (3.5-5.1); Total Protein 7.2 g/dL (6.3-8.2)
--- NOTE | 2023-12-16 17:11 | ERPHSYRPT ---
- History of Present Illness Time Seen by Provider: 12/16/23 16:09 Source: patient Exam Limitations: no limitations Patient Subjective Stated Complaint: C/O chest pain for the past few days Triage Nursing Assessment: Patient ambulated back to ER. She is SOB with exertion. Forceful, moist, non-productive cough. Rhonchi noted to right upper lobe. Patient is pale. ABRAHAM WNL. NO edema. Physician History: Right chest pain. Started approximately 24 hours ago. No falls or trauma. Patient does smoke cigarettes. States that she has cut down her smoking. Patient does feel like she has a bronchitis, cough, nonproductive, more moist. Patient is taking PO well. Same number of urinations and defecations. The patient has no signs of altered mental status, nuchal rigidity, signs of meningitis. The patient is up-to-date on all vaccinations. Allergies/Adverse Reactions: morphine Allergy (Verified 12/16/23 15:51) "HAD SINCE I WAS A KID" Home Medications: No Reportable Medications [No Reported Medications] 12/16/23 [History] Hx Tetanus, Diphtheria Vaccination/Date Given: Yes Hx Influenza Vaccination/Date Given: No Hx Pneumococcal Vaccination/Date Given: No Immunizations Up to Date: Yes Travel Risk - International Travel Have you traveled outside of the country in past 3 weeks: No - Emerging Infectious Disease Are you exhibiting symptoms associated with any current EIDs: Yes Symptoms: Cough: New Onset, Shortness of Breath - Past Medical History Pertinent Past Medical History: Yes Neurological History: Other ENT History: No Pertinent History Cardiac History: No Pertinent History Respiratory History: Asthma, COPD Endocrine Medical History: Hyperthyroidism Musculoskeletal History: Other GI Medical History: Crohns Disease, Gallbladder Disease, Other History: No Pertinent History Psycho-Social History: No Pertinent History Female Reproductive Disorders: No Pertinent History Other Medical History: EBEN-JAY SYNDROME history of bowel obstructions Bowel surgery apr 2021 - Past Surgical History Past Surgical History: Yes Neuro Surgical History: No Pertinent History Cardiac: No Pertinent History Respiratory: No Pertinent History Gastrointestinal: Cholecystectomy, Other Genitourinary: No Pertinent History Musculoskeletal: Orthopedic Surgery Female Surgical History: Hysterectomy Other Surgical History: PARTIAL THYROIDECTOMY - Female History Hx Now: No (hysterectomy) - Social History Smoking Status: Current every day smoker How long have you smoked: 15 yrs Exposure to second hand smoke: Yes Drug Use: marijuana, other Patient Lives Alone: No - Social Determinants of Health Will the patient participate in the screening: Declined to provide - Nursing Vital Signs Nursing Vital Signs: Initial Vital Signs Temperature 97.9 F 12/16/23 15:51 Pulse Rate 90 12/16/23 15:51 Respiratory Rate 25 H 12/16/23 15:51 Blood Pressure 154/99 12/16/23 15:51 O2 Sat by Pulse Oximetry 100 12/16/23 15:51 Pain Scale Pain Intensity 6 - Physical Exam SpO2: 98 Comments: 12/16/23 17:10 Review of Systems Constitutional: Negative for fever. HENT: Negative for congestion. Respiratory: Negative for shortness of breath. Cardiovascular: Chest pain Gastrointestinal: Negative for abdominal pain. Genitourinary: Negative for dysuria. Musculoskeletal: Negative for back pain. Skin: Negative for rash. Neurological: Negative for headaches. Psychiatric/Behavioral: Negative for behavioral problems. All other systems reviewed and are negative. Physical Exam Vitals signs and nursing note reviewed. Constitutional: Appearance: Patient is well-developed. HENT: Head: Normocephalic and atraumatic. Eyes: Conjunctiva/sclera: Conjunctivae normal. Neck: Musculoskeletal: Normal range of motion. Trachea: No tracheal deviation. Cardiovascular: Rate and Rhythm: Normal rate. Reproducible right upper back tenderness to palpation with no overlying skin changes. No obvious deformity, sensation intact, 2+ capillary refill, 2 point tactile discrimination intact. 5 out of 5 strength. Full range of motion without pain. Compartments are soft, nontender. Overlying skin shows no tenting, bruising, ecchymosis. Pulmonary: Effort: Pulmonary effort is normal. No respiratory distress. Abdominal: Palpations: Abdomen is soft. Musculoskeletal: General: No deformity. Skin: General: Skin is warm and dry. Neurological/ Psychiatric: Mental Status: Mental status, behavior, interaction with environment is appropriate for patient's age and condition - Course Nursing assessment & vital signs reviewed: Yes EKG Interpreted by Me: Sinus Rhythm (Sinus rhythm, rate of 88, TX interval 140, QRS 85, QTc 363,) Ordered Tests: Active Orders 24 hr Category Date Time Status Shipping And Receiving Coordinator STAT Care 12/16/23 16:14 Active EKG-ER Only STAT Care 12/16/23 16:13 Active IV Insertion STAT Care 12/16/23 16:13 Active CHEST 1 VIEW (PORTABLE) Stat Exams 12/16/23 16:13 Completed CHEST WITH CONTRAST [CT] Stat Exams 12/16/23 17:43 Taken CBC W DIFF Stat Lab 12/16/23 16:13 Completed CK-Creatinine Phosphokinase Stat Lab 12/16/23 16:35 Completed CMP Stat Lab 12/16/23 16:35 Completed D-DIMER QUANTITATIVE Stat Lab 12/16/23 16:35 Completed NT PRO BNPII Stat Lab 12/16/23 16:35 Completed Sputum Culture [CULTURE,SPUTUM] Stat Lab 12/16/23 18:07 Received TROPONIN Q4H Lab 12/16/23 16:35 Completed TROPONIN Q4H Lab 12/16/23 20:15 Ordered TROPONIN Q4H Lab 12/17/23 00:15 Ordered Medication Summary Discontinued Medications Generic Name Dose Route Start Last Admin Trade Name Freq PRN Reason Stop Dose Admin Albuterol/Ipratropium 3 ml 12/16/23 16:15 12/16/23 16:28 Ipratropium/Albuterol Sulfate 3 Ml Ampul.Neb IH 12/16/23 16:16 3 ml STAT ONE Administration Albuterol/Ipratropium Confirm 12/16/23 16:26 Ipratropium/Albuterol Sulfate 3 Ml Ampul.Neb Administered 12/16/23 16:27 Dose 3 ml IH .STK-MED ONE Aspirin 324 mg 12/16/23 16:13 12/16/23 16:28 Aspirin 81 Mg Tab.Chew PO 12/16/23 16:14 324 mg STAT ONE Administration Aspirin Confirm 12/16/23 16:24 Aspirin 81 Mg Tab.Chew Administered 12/16/23 16:25 Dose 324 mg .ROUTE .STK-MED ONE Dexamethasone Sodium Phosphate 10 mg 12/16/23 16:15 12/16/23 16:29 Dexamethasone Sod Phosphate 10 Mg/Ml IV 12/16/23 16:16 10 mg STAT ONE Administration Dexamethasone Sodium Phosphate Confirm 12/16/23 16:24 Dexamethasone Sod Phosphate 10 Mg/Ml Administered 12/16/23 16:25 Dose 10 mg .ROUTE .STK-MED ONE Sodium Chloride 1,000 mls @ 999 mls/hr 12/16/23 16:13 12/16/23 17:29 Sodium Chloride 0.9% 1000 Ml IV 12/16/23 17:13 Infused .Q1H1M STA Infusion Sodium Chloride Confirm 12/16/23 16:24 Sodium Chloride 0.9% 1000 Ml Administered 12/16/23 16:25 Dose 1,000 mls @ ud .ROUTE .STK-MED ONE Ketorolac Tromethamine 30 mg 12/16/23 16:14 12/16/23 16:29 Ketorolac Tromethamine 30 Mg/Ml Inj IV 12/16/23 16:15 30 mg STAT ONE Administration Ketorolac Tromethamine Confirm 12/16/23 16:24 Ketorolac Tromethamine 30 Mg/Ml Inj Administered 12/16/23 16:25 Dose 30 mg .ROUTE .STK-MED ONE Lab/Rad Data: Laboratory Result Diagrams 12/16/23 16:13 12/16/23 16:35 Laboratory Results 12/16/23 12/16/23 12/16/23 Range/Units 16:35 16:35 16:35 WBC (3.98-10.04) x10^3/uL RBC (3.93-5.22) x10^6/uL Hgb (11.2-15.7) g/dL Hct (34.1-44.9) % MCV (79.4-94.8) fL MCH (25.6-32.2) pg MCHC (32.2-35.5) g/dL RDW (11.7-14.4) % Plt Count (182-369) x10^3/uL MPV (9.4-12.3) fL Gran % (34.0-71.1) % Immature Gran % (Auto) (0.001-0.429) % Nucleat RBC Rel Count (0.00-0.2) % Eos # (Auto) (0.04-0.36) x10^3/uL Immature Gran # (Auto) (0.001-0.031) x10^3u/L Absolute Lymphs (auto) (1.18-3.74) x10^3/uL Absolute Monos (auto) (0.24-0.86) x10^3/uL Absolute Nucleated RBC (0.00-0.012) x10^3u/L Lymphocytes % (19.3-51.7) % Monocytes % (4.7-12.5) % Eosinophils % (0.7-5.8) % Basophils % (0.1-1.2) % Absolute Granulocytes (1.56-6.13) x10^3/uL Basophils # (0.01-0.08) x10^3/uL D-Dimer 1.19 H* (0.0-0.50) mg/L Sodium 139 (135-145) mmol/L Potassium 4.4 (3.5-5.1) mmol/L Chloride 108 H (98-107) mmol/L Carbon Dioxide 24 (22-30) mmol/L Anion Gap 11.5 (5-15) MEQ/L BUN 18 H (7-17) mg/dL Creatinine 0.45 L (0.52-1.04) mg/dL Estimated GFR 124.7 ML/MIN Glucose 117 H (74-106) mg/dL Calcium 9.3 (8.4-10.2) mg/dL Total Bilirubin 0.60 (0.2-1.3) mg/dL AST 22 (14-36) U/L ALT 18 (0-35) U/L Alkaline Phosphatase 242 H (38-126) U/L Creatine Kinase 38 (30-135) U/L Troponin I < 0.012 (0.000-0.033) ng/mL NT-Pro-B Natriuret Pep 233 (<300) pg/mL Serum Total Protein 7.2 (6.3-8.2) g/dL Albumin 4.2 (3.5-5.0) g/dL 12/16/23 Range/Units 16:13 WBC 7.2 (3.98-10.04) x10^3/uL RBC 5.22 (3.93-5.22) x10^6/uL Hgb 16.6 H (11.2-15.7) g/dL Hct 49.5 H (34.1-44.9) % MCV 94.8 (79.4-94.8) fL MCH 31.8 (25.6-32.2) pg MCHC 33.5 (32.2-35.5) g/dL RDW 15.4 H (11.7-14.4) % Plt Count 302 (182-369) x10^3/uL MPV 9.3 L (9.4-12.3) fL Gran % 55.7 (34.0-71.1) % Immature Gran % (Auto) 0.3 (0.001-0.429) % Nucleat RBC Rel Count 0.0 (0.00-0.2) % Eos # (Auto) 0.09 (0.04-0.36) x10^3/uL Immature Gran # (Auto) 0.02 (0.001-0.031) x10^3u/L Absolute Lymphs (auto) 2.58 (1.18-3.74) x10^3/uL Absolute Monos (auto) 0.47 (0.24-0.86) x10^3/uL Absolute Nucleated RBC 0.00 (0.00-0.012) x10^3u/L Lymphocytes % 35.7 (19.3-51.7) % Monocytes % 6.5 (4.7-12.5) % Eosinophils % 1.2 (0.7-5.8) % Basophils % 0.6 (0.1-1.2) % Absolute Granulocytes 4.02 (1.56-6.13) x10^3/uL Basophils # 0.04 (0.01-0.08) x10^3/uL D-Dimer (0.0-0.50) mg/L Sodium (135-145) mmol/L Potassium (3.5-5.1) mmol/L Chloride (98-107) mmol/L Carbon Dioxide (22-30) mmol/L Anion Gap (5-15) MEQ/L BUN (7-17) mg/dL Creatinine (0.52-1.04) mg/dL Estimated GFR ML/MIN Glucose (74-106) mg/dL Calcium (8.4-10.2) mg/dL Total Bilirubin (0.2-1.3) mg/dL AST (14-36) U/L ALT (0-35) U/L Alkaline Phosphatase (38-126) U/L Creatine Kinase (30-135) U/L Troponin I (0.000-0.033) ng/mL NT-Pro-B Natriuret Pep (<300) pg/mL Serum Total Protein (6.3-8.2) g/dL Albumin (3.5-5.0) g/dL - Progress Progress: improved Progress Note: 12/16/23 17:11 Differential diagnosis includes: PNA, STEMI, NSTEMI, other infection, musculoskeletal pain, pneumothorax - We'll obtain basic labs, fluids, EKG, troponin, chest x-ray - EKG shows no ST changes - my read - O2 saturations consistently greater than 95%. - CXR shows no pneumonia, pneumothorax - my read Counseled pt/family regarding: lab results, diagnosis, need for follow-up, rad results - Departure Clinical Impression: Atypical chest pain Condition: Stable Critical Care Time: No Referrals: DOCTOR,NO FAMILY [Primary Care Provider] - Follow up/PCP as directed
[2023-12-16 17:16] VITALS: RESP 15
[2023-12-16 19:21] VITALS: BP 161/101; PULSE 96; O2SAT 95
--- NOTE | 2023-12-17 07:59 | XRAY ---
Indication: Short of breath. Elevated d-dimer. Pulmonary embolus. History of Keyanna-Malissa syndrome. Multiple contiguous axial images obtained through the chest using 80 cc Isovue 370 contrast and PE protocol. Comparison: June 28, 2021 There is good opacification of the pulmonary arteries to include the lobar and segmental branches. No pulmonary embolus. Heart not enlarged. Aorta is normal in course and caliber. No pathologic mediastinal/hilar lymphadenopathy. Lungs demonstrates inflated with new 7 mm right lower lobe noncalcified nodule and mild lingula subsegmental atelectasis/scarring. Also new mild pulmonary emphysema. No infiltrate, consolidation, or effusion. Bony thorax intact again with diffuse bony sclerotic/lytic lesions presumed related to patient's history of Keyanna-Malissa syndrome. Again incidental bilateral breast implants. Limited upper abdomen again demonstrates hepatic cysts. Impression: 1. Continued negative for pulmonary embolus. No acute cardiopulmonary abnormalities. 2. New subcentimeter right lung base indeterminate noncalcified nodule and pulmonary emphysema. 3. Grossly stable bony lesions presumed related to patient's history of Keyanna-Malissa syndrome and incidental hepatic cysts.
== END 2023-12-16 21:59 | disposition home or self-care (01) ==
LOC: ED 15:50
DX: R07.89 Other chest pain (principal); R05.9 Cough, unspecified; Z72.0 Tobacco use
CPT/HCPCS: 36000; 36415; 71045; 71260; 80053; 82550; 83880; 84484; 85025; 85379; 87070; 93005; 93041; 94640; 96374; 96375; 99284; J1100; J1885; A9270-GY

== ENCOUNTER 2024-02-26 18:24 | Emergency (ER) | payer MEDICARE ==
--- NOTE | 2024-02-26 18:32 | ERPHSYRPT ---
- History of Present Illness Time Seen by Provider: 02/26/24 18:31 Source: patient Exam Limitations: no limitations Physician History: This is a 38-year-old white female patient who came in by private vehicle with complaint of fever, vomiting, body aches, headache and cough. Onset was relatively sudden this morning. Patient's fever reached to have 101 F at home. Patient took Tylenol to help control the fever at 1700 prior to arrival. Patient has no known exposures to individuals with similar symptoms or diagnosed with flu's. Patient has a history of asthma, COPD, hyperthyroidism, Crohn's disease and Eben-Jay syndrome. Patient is a daily smoker cigarettes. Patient denies chest pain. She has mild shortness of breath. She has no diarrhea symptoms. 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 Associated Symptoms: cough, headache, muscle aches, nausea/vomiting, No shortness of breath, No sore throat, No stiff neck Allergies/Adverse Reactions: morphine Allergy (Verified 12/16/23 15:51) "HAD SINCE I WAS A KID" Hx Tetanus, Diphtheria Vaccination/Date Given: Yes Hx Influenza Vaccination/Date Given: No Hx Pneumococcal Vaccination/Date Given: No Travel Risk - International Travel Have you traveled outside of the country in past 3 weeks: No - Emerging Infectious Disease Are you exhibiting symptoms associated with any current EIDs: Yes Symptoms: Cough: New Onset, Shortness of Breath - Review of Systems Constitutional: Fever Eyes: No Symptoms Ears, Nose, & Throat: No Symptoms Respiratory: Cough, Dyspnea Cardiac: No Symptoms (Mild) Abdominal/Gastrointestinal: Nausea, Vomiting, No Abdominal Pain Genitourinary Symptoms: No Symptoms Musculoskeletal: Arthralgias, Myalgias Neurological: Headache Psychological: No Symptoms Endocrine: No Symptoms Hematologic/Lymphatic: No Symptoms Immunological/Allergic: No Symptoms All Other Systems: Reviewed and Negative - Past Medical History Pertinent Past Medical History: Yes Neurological History: Other ENT History: No Pertinent History Cardiac History: No Pertinent History Respiratory History: Asthma, COPD Endocrine Medical History: Hyperthyroidism Musculoskeletal History: Other GI Medical History: Crohns Disease, Gallbladder Disease, Other History: No Pertinent History Psycho-Social History: No Pertinent History Female Reproductive Disorders: No Pertinent History Other Medical History: EBEN-JAY SYNDROME history of bowel obstructions Bowel surgery apr 2021 - Past Surgical History Past Surgical History: Yes Neuro Surgical History: No Pertinent History Cardiac: No Pertinent History Respiratory: No Pertinent History Gastrointestinal: Cholecystectomy, Other Genitourinary: No Pertinent History Musculoskeletal: Orthopedic Surgery Female Surgical History: Hysterectomy Other Surgical History: PARTIAL THYROIDECTOMY - Female History Hx Last Menstrual Period: HYSTERECTOMY - Social History Smoking Status: Current every day smoker How long have you smoked: 15 yrs Exposure to second hand smoke: Yes Drug Use: marijuana, other Patient Lives Alone: No - Social Determinants of Health Will the patient participate in the screening: Declined to provide - Nursing Vital Signs Nursing Vital Signs: Initial Vital Signs Blood Pressure 140/114 02/26/24 18:31 O2 Sat by Pulse Oximetry 98 02/26/24 18:31 Pain Scale Pain Intensity 5 - Physical Exam General Appearance: no apparent distress, alert, anxiety, thin Eye Exam: PERRL/EOMI, eyes nml inspection ENT Exam: normal ENT inspection, hearing grossly normal, TMs normal, pharynx normal Neck Exam: normal inspection, non-tender, supple, full range of motion, trachea midline, No meningismus Respiratory Exam: normal breath sounds, lungs clear, no respiratory distress, no accessory muscle use, No chest non-tender, No decreased breath sounds, No respiratory distress Cardiovascular/Chest Exam: normal heart sounds, regular rate/rhythm Gastrointestinal/Abdominal Exam: soft, non tender, no distention, no mass, no guarding, no ecchymosis, no organomegaly, no pulsatile mass, normal bowel sounds Pelvic Exam: not done Rectal Exam: not done Extremity Exam: non-tender, normal range of motion, normal inspection, normal capillary refill, no calf tenderness, no pedal edema, pelvis stable Neurologic Exam: alert, oriented x 3, cooperative, tribal [employer] member II-XII nml as tested, nml cerebellar function, nml station & gait, sensation nml Skin Exam: normal color, warm, dry Lymphatic: No adenopathy SpO2 Interpretation: normal O2 Delivery: Room Air - Course Nursing assessment & vital signs reviewed: Yes Ordered Tests: Active Orders 24 hr Category Date Time Status Emt/Dispatcher STAT Care 02/26/24 18:50 Active IV Insertion STAT Care 02/26/24 18:49 Active Pulse Oximetry (ED) STAT Care 02/26/24 18:49 Active CHEST 1 VIEW (PORTABLE) Stat Exams 02/26/24 18:49 Taken BLOOD CULTURE Stat Lab 02/26/24 18:50 Ordered CBC W DIFF Stat Lab 02/26/24 18:50 Completed CMP Stat Lab 02/26/24 18:50 Completed Lactic Acid Stat Lab 02/26/24 19:02 Completed MONO SCREEN Stat Lab 02/26/24 18:50 Completed UA W/RFX UR CULTURE Stat Lab 02/26/24 18:32 Completed Medication Summary Generic Name Dose Route Start Last Admin Trade Name Freq PRN Reason Stop Dose Admin Sodium Chloride 1,000 mls @ 999 mls/hr 02/26/24 18:49 02/26/24 18:54 Sodium Chloride 0.9% 1000 Ml IV 02/26/24 19:49 999 mls/hr .[id number] STA Administration Discontinued Medications Generic Name Dose Route Start Last Admin Trade Name Freq PRN Reason Stop Dose Admin Sodium Chloride Confirm 02/26/24 18:53 Sodium Chloride 0.9% 1000 Ml Administered 02/26/24 18:54 Dose 1,000 mls @ ud .ROUTE .STK-MED ONE Ibuprofen 600 mg 02/26/24 18:49 02/26/24 18:54 Ibuprofen 600 Mg Tablet PO 02/26/24 18:50 600 mg STAT STA Administration Ibuprofen Confirm 02/26/24 18:53 Ibuprofen 600 Mg Tablet Administered 02/26/24 18:54 Dose 600 mg .ROUTE .STK-MED ONE Lab/Rad Data: Laboratory Result Diagrams 02/26/24 18:50 02/26/24 18:50 Laboratory Results 02/26/24 02/26/24 02/26/24 Range/Units 19:02 18:50 18:50 WBC (3.98-10.04) x10^3/uL RBC (3.93-5.22) x10^6/uL Hgb (11.2-15.7) g/dL Hct (34.1-44.9) % MCV (79.4-94.8) fL MCH (25.6-32.2) pg MCHC (32.2-35.5) g/dL RDW (11.7-14.4) % Plt Count (182-369) x10^3/uL MPV (9.4-12.3) fL Gran % (34.0-71.1) % Immature Gran % (Auto) (0.001-0.429) % Nucleat RBC Rel Count (0.00-0.2) % Eos # (Auto) (0.04-0.36) x10^3/uL Immature Gran # (Auto) (0.001-0.031) x10^3u/L Absolute Lymphs (auto) (1.18-3.74) x10^3/uL Absolute Monos (auto) (0.24-0.86) x10^3/uL Absolute Nucleated RBC (0.00-0.012) x10^3u/L Lymphocytes % (19.3-51.7) % Monocytes % (4.7-12.5) % Eosinophils % (0.7-5.8) % Basophils % (0.1-1.2) % Absolute Granulocytes (1.56-6.13) x10^3/uL Basophils # (0.01-0.08) x10^3/uL Sodium 138 (135-145) mmol/L Potassium 3.6 (3.5-5.1) mmol/L Chloride 105 (98-107) mmol/L Carbon Dioxide 24 (22-30) mmol/L Anion Gap 12.3 (5-15) MEQ/L BUN 14 (7-17) mg/dL Creatinine 0.45 L (0.52-1.04) mg/dL Estimated GFR 124.7 ML/MIN Glucose 130 H (74-106) mg/dL Lactic Acid 1.0 (0.4-2.0) Calcium 9.3 (8.4-10.2) mg/dL Total Bilirubin 0.40 (0.2-1.3) mg/dL AST 28 (14-36) U/L ALT 24 (0-35) U/L Alkaline Phosphatase 240 H (38-126) U/L Serum Total Protein 7.4 (6.3-8.2) g/dL Albumin 4.4 (3.5-5.0) g/dL Urine Color (Yellow) Urine Appearance (Clear) Urine pH (4.6-8.0) Ur Specific [place] (1.005-1.030) Urine Protein (Negative) Urine Glucose (UA) (Negative) mg/dL Urine Ketones (Negative) Urine Blood (Negative) Urine Nitrite (Negative) Urine Bilirubin (Negative) Urine Urobilinogen (0.2) mg/dL Ur Leukocyte Esterase (Negative) U Hyaline Cast (Auto) (0-2) /LPF Urine Microscopic RBC (0-5) /HPF Urine Microscopic WBC (0-5) /HPF Ur Epithelial Cells (None Seen) /HPF Urine Bacteria (None Seen) /HPF Urine Culture Reflexed (NO) Monoscreen NEGATIVE (NEGATIVE) Influenza Type A Ag (NEGATIVE) Influenza Type B Ag (NEGATIVE) RSV (PCR) (NEGATIVE) SARS-CoV-2 (PCR) (NEGATIVE) Group A Strep Antibody (NEGATIVE) 02/26/24 02/26/24 02/26/24 Range/Units 18:50 18:32 18:32 WBC 5.3 (3.98-10.04) x10^3/uL RBC 4.76 (3.93-5.22) x10^6/uL Hgb 15.0 (11.2-15.7) g/dL Hct 44.7 (34.1-44.9) % MCV 93.9 (79.4-94.8) fL MCH 31.5 (25.6-32.2) pg MCHC 33.6 (32.2-35.5) g/dL RDW 15.3 H (11.7-14.4) % Plt Count 284 (182-369) x10^3/uL MPV 9.2 L (9.4-12.3) fL Gran % 65.9 (34.0-71.1) % Immature Gran % (Auto) 0.8 H (0.001-0.429) % Nucleat RBC Rel Count 0.0 (0.00-0.2) % Eos # (Auto) 0.04 (0.04-0.36) x10^3/uL Immature Gran # (Auto) 0.04 H (0.001-0.031) x10^3u/L Absolute Lymphs (auto) 0.88 L (1.18-3.74) x10^3/uL Absolute Monos (auto) 0.80 (0.24-0.86) x10^3/uL Absolute Nucleated RBC 0.00 (0.00-0.012) x10^3u/L Lymphocytes % 16.7 L (19.3-51.7) % Monocytes % 15.2 H (4.7-12.5) % Eosinophils % 0.8 (0.7-5.8) % Basophils % 0.6 (0.1-1.2) % Absolute Granulocytes 3.48 (1.56-6.13) x10^3/uL Basophils # 0.03 (0.01-0.08) x10^3/uL Sodium (135-145) mmol/L Potassium (3.5-5.1) mmol/L Chloride (98-107) mmol/L Carbon Dioxide (22-30) mmol/L Anion Gap (5-15) MEQ/L BUN (7-17) mg/dL Creatinine (0.52-1.04) mg/dL Estimated GFR ML/MIN Glucose (74-106) mg/dL Lactic Acid (0.4-2.0) Calcium (8.4-10.2) mg/dL Total Bilirubin (0.2-1.3) mg/dL AST (14-36) U/L ALT (0-35) U/L Alkaline Phosphatase (38-126) U/L Serum Total Protein (6.3-8.2) g/dL Albumin (3.5-5.0) g/dL Urine Color Yellow (Yellow) Urine Appearance Clear (Clear) Urine pH 5.5 (4.6-8.0) Ur Specific [place] 1.025 (1.005-1.030) Urine Protein 30 (Negative) Urine Glucose (UA) Negative (Negative) mg/dL Urine Ketones 15 A (Negative) Urine Blood Negative (Negative) Urine Nitrite Negative (Negative) Urine Bilirubin Negative (Negative) Urine Urobilinogen 0.2 (0.2) mg/dL Ur Leukocyte Esterase Negative (Negative) U Hyaline Cast (Auto) 3-5 A (0-2) /LPF Urine Microscopic RBC 3-5 (0-5) /HPF Urine Microscopic WBC 0-2 (0-5) /HPF Ur Epithelial Cells Rare (None Seen) /HPF Urine Bacteria None Seen (None Seen) /HPF Urine Culture Reflexed NO (NO) Monoscreen (NEGATIVE) Influenza Type A Ag NEGATIVE (NEGATIVE) Influenza Type B Ag NEGATIVE (NEGATIVE) RSV (PCR) NEGATIVE (NEGATIVE) SARS-CoV-2 (PCR) POSITIVE A (NEGATIVE) Group A Strep Antibody NOT DETECTED (NEGATIVE) - Progress Progress: improved, re-examined Progress Note: 02/26/24 19:28 My medical decision making and the assignment of moderate complexity to this patient's medical issue today is based on review of the patient's past medical history, review the patient's medication list, history present send physical findings on examination. The workup in this patient includes placement of intravenous line, infusion of normal saline solution, CBC, CMP, lactic acid level, chest x-ray, urinalysis, viral swabs, group A strep test. Differential diagnosis includes but not limited to viral illness, pneumonia, urinary tract infection, strep pharyngitis 02/26/24 19:45 I interpreted the patient's laboratory data results. Based on the laboratory data results, patient does have COVID-19 infection. No other acute, emergent medical issue. I interpreted the preliminary report on the chest x-ray performed. The chest x- ray findings include questionable bilateral groundglass appearance. No definite infiltrate. I asked the patient if she has had hydrocodone in the past. Patient states that she has had hydrocodone with no ill effects. Counseled pt/family regarding: lab results, diagnosis, need for follow-up, rad results Medical Desision Making - Diagnostic Testing Diagnostic test were ordered, analyzed, and reviewed by me: Yes Radiological Interpretation: Interpreted by me - Risk of complications The pt has a mod risk of morbidity or mortality based on: Need for prescription drug management - Departure Departure Disposition: Home Clinical Impression: COVID-19 virus infection Condition: Stable Critical Care Time: No Referrals: DOCTOR,NO FAMILY [NON-STAFF PHY W/O PRIVILEGES] - Follow up/PCP as directed Additional Instructions: Drink plenty of clear liquids. Stop smoking. Take your steroids and cough medicine as prescribed. Take your other medicines as prescribed. Call your [facility] care provider on 02/27/2024 to make arrangements for follow-up appointment to be seen in approximately 7 days. Prescriptions: Prednisone 10 mg [Deltasone 10 mg] 10 mg PO TID #12 tablet Hydrocodone/Acetaminophen [Hydrocodone-Acetamn 7.5-325/15] 10 ml PO Q8H PRN #120 ml MDD 30 ml PRN Reason: Cough
[2024-02-26 18:42] VITALS: TEMP 98.5
[2024-02-26 18:49] LABS: Appearance Clear (Clear); Bacteria None Seen /HPF (None Seen); Bilirubin Negative (Negative); Blood Negative (Negative); Epithelial Cells Rare /HPF (None Seen); Glucose, Urine Negative (Negative); Ketones 15 (Negative); Leukocyte Esterase Negative (Negative); Nitrite Negative (Negative); Ph 5.5 (4.6-8.0); Protein,Urine Dip 30 (Negative); Specific Gravity 1.025 (1.005-1.030); Urobilinogen 0.2 mg/dL (0.2); WBC 0-2 /HPF (0-5)
[2024-02-26] MEDS ORDERED: MOTRIN 600 MG ONE (18:53)
[2024-02-26] MEDS ORDERED: Sodium Chloride 0.9% 1000 ML 1,000 ML ONE (18:53)
[2024-02-26 18:54] LABS: ADD URINE CULTURE? NO (NO)
[2024-02-26] MEDS: MOTRIN 600 MG PO STA (18:54)
[2024-02-26] MEDS: Sodium Chloride 0.9% 1000 ML 1,000 ML IV STA (18:54)
[2024-02-26 19:02] LABS: Group A Strep NOT DETECTED (NEGATIVE)
[2024-02-26 19:07] LABS: Absolute Neutrophil Ct (ANC) 3.48 x10^3/uL (1.56-6.13); BASOPHIL % 0.6 % (0.1-1.2); Basophil (Absolute #) 0.03 x10^3/uL (0.01-0.08); Eosinophil % 0.8 % (0.7-5.8); Eosinophil (Absolute #) 0.04 x10^3/uL (0.04-0.36); Hematocrit 44.7 % (34.1-44.9); IMMATURE GRAN # 0.04 x10^3u/L (0.001-0.031); IMMATURE GRAN % 0.8 % (0.001-0.429); Lymphocyte (Absolute #) 0.88 x10^3/uL (1.18-3.74); Lymphocytes % 16.7 % (19.3-51.7); Mean Cell Volume 93.9 fL (79.4-94.8); Mean Corpuscular Hemoglobin 31.5 pg (25.6-32.2); Mean Corpuscular Hgb Concent. 33.6 g/dL (32.2-35.5); Mean Platelet Volume 9.2 fL (9.4-12.3); Monocytes % 15.2 % (4.7-12.5); Neutrophil % 65.9 % (34.0-71.1); Platelet Count 284 x10^3/uL (182-369); Red Blood Count 4.76 x10^6/uL (3.93-5.22); Red Cell Distribution Width 15.3 % (11.7-14.4); White Blood Count 5.3 x10^3/uL (3.98-10.04)
[2024-02-26 19:13] LABS: INFLUENZA A NEGATIVE (NEGATIVE); INFLUENZA B NEGATIVE (NEGATIVE); RESPIRATORY SYNCTIAL VIRUS NEGATIVE (NEGATIVE)
[2024-02-26 19:19] LABS: SARS-CoV-2 Xpert Express POSITIVE (NEGATIVE)
[2024-02-26 19:20] LABS: ALBUMIN 4.4 g/dL (3.5-5.0); ANION GAP 12.3 MEQ/L (5-15); BILIRUBIN,TOTAL 0.4 mg/dL (0.2-1.3); Calcium 9.3 mg/dL (8.4-10.2); Creatinine 1 0.45 mg/dL (0.52-1.04); EST GLOMERULAR FILTRATION RATE 124.7 ML/MIN; Potassium 3.6 mmol/L (3.5-5.1); Total Protein 7.4 g/dL (6.3-8.2)
[2024-02-26 19:29] VITALS: O2SAT 96
[2024-02-26] MEDS ORDERED: HYDROCODONE-ACETAMIN 2.5-108/5 ML SOLUTION ONE (19:47)
[2024-02-26] MEDS ORDERED: solu-MEDROL ONE (19:47)
[2024-02-26] MEDS ORDERED: Sterile H2O 10 ml IJ ONE (19:47)
[2024-02-26] MEDS: HYDROCODONE-ACETAMIN 2.5-108/5 ML SOLUTION PO STA (19:49)
[2024-02-26] MEDS: solu-MEDROL 125 MG, Sterile H2O 10 ml 2 ML IV ONE (19:49)
[2024-02-26 20:05] VITALS: BP 153/101; PULSE 101; RESP 16
--- NOTE | 2024-02-27 08:39 | XRAY ---
Indication: Fever and cough. History of [place]anna-[place] syndrome. Comparison: December 16, 2023 Portable chest unchanged again hyperinflated and clear. Heart not enlarged. Bony thorax intact again with bony deformities consistent with patient's history of Keyanna-Malissa syndrome. Again incidental bilateral breast implants. Impression: Continued nonacute chest with chronic features.
== END 2024-02-26 20:09 | disposition home or self-care (01) ==
LOC: ED 18:24
DX: U07.1 COVID-19 (principal); R50.9 Fever, unspecified; R11.2 Nausea with vomiting, unspecified; M79.10 Myalgia, unspecified site; R51.9 Headache, unspecified; R05.1 Acute cough; Z79.52 Long term (current) use of systemic steroids; Z79.891 Long term (current) use of opiate analgesic; Z72.0 Tobacco use
CPT/HCPCS: 0241U; 36000; 36415; 71045; 80053; 81001; 83605; 85025; 86308; 87040; 87651; 93041; 94760; 96374; 99284; J2919; A9270-GY

== ENCOUNTER 2024-06-04 14:58 | Emergency (ER) | payer MEDICARE ==
[2024-06-04 15:18] VITALS: BP 118/91; PULSE 104; RESP 18; TEMP 98.6; O2SAT 97
[2024-06-04] MEDS ORDERED: XYLOCAINE VISCOUS 2% 15 ML CUP ONE (15:23)
[2024-06-04] MEDS: XYLOCAINE VISCOUS 2% 15 ML CUP MM ONE (15:25)
--- NOTE | 2024-06-04 16:18 | ERPHSYRPT ---
- History of Present Illness Time Seen by Provider: 06/04/24 15:45 Source: patient Exam Limitations: no limitations Patient Subjective Stated Complaint: Rectal pain Triage Nursing Assessment: Patient ambulated back to ED and transferred self to bed. Patient A+O X3. Patient's skin pink, warm and dry. Patient complains of rectal pain 5/10. Patient has external hemmoroids to rectum causing her pain. Patient states he has bled through 3 pairs of pants. Timing/Duration: today Severity: mild Associated Symptoms: denies symptoms Allergies/Adverse Reactions: morphine Allergy (Verified 06/04/24 15:10) "HAD SINCE I WAS A KID" Hx Tetanus, Diphtheria Vaccination/Date Given: Yes Hx Influenza Vaccination/Date Given: No Hx Pneumococcal Vaccination/Date Given: No Immunizations Up to Date: Yes Travel Risk - International Travel Have you traveled outside of the country in past 3 weeks: No - Emerging Infectious Disease Are you exhibiting symptoms associated with any current EIDs: No Symptoms: Cough: New Onset, Shortness of Breath - Review of Systems Constitutional: No Symptoms Eyes: No Symptoms Ears, Nose, & Throat: No Symptoms Respiratory: No Symptoms Cardiac: No Symptoms Abdominal/Gastrointestinal: No Symptoms Genitourinary Symptoms: No Symptoms Musculoskeletal: No Symptoms Skin: No Symptoms Neurological: No Symptoms Psychological: No Symptoms Endocrine: No Symptoms Hematologic/Lymphatic: No Symptoms Immunological/Allergic: No Symptoms - Past Medical History Pertinent Past Medical History: Yes Neurological History: Other ENT History: No Pertinent History Cardiac History: No Pertinent History Respiratory History: Asthma, COPD Endocrine Medical History: Hyperthyroidism Musculoskeletal History: Other GI Medical History: Crohns Disease, Gallbladder Disease, Other History: No Pertinent History Psycho-Social History: No Pertinent History Female Reproductive Disorders: No Pertinent History Other Medical History: EBEN-JAY SYNDROME history of bowel obstructions Bowel surgery apr 2021 - Past Surgical History Past Surgical History: Yes Neuro Surgical History: No Pertinent History Cardiac: No Pertinent History Respiratory: No Pertinent History Gastrointestinal: Cholecystectomy, Other Genitourinary: No Pertinent History Musculoskeletal: Orthopedic Surgery Female Surgical History: Hysterectomy Other Surgical History: PARTIAL THYROIDECTOMY - Female History Hx Last Menstrual Period: total hyserectomy Hx Now: No - Social History Smoking Status: Current every day smoker How long have you smoked: 15 yrs Exposure to second hand smoke: Yes Drug Use: marijuana, other Patient Lives Alone: No - Social Determinants of Health Will the patient participate in the screening: Declined to provide - Nursing Vital Signs Nursing Vital Signs: Initial Vital Signs Temperature 98.6 F 06/04/24 15:11 Pulse Rate 104 H 06/04/24 15:11 Respiratory Rate 18 06/04/24 15:11 Blood Pressure 118/91 06/04/24 15:11 O2 Sat by Pulse Oximetry 97 06/04/24 15:11 Pain Scale Pain Intensity 5 - Physical Exam General Appearance: no apparent distress Eye Exam: PERRL/EOMI Ears, Nose, Throat Exam: normal ENT inspection Neck Exam: normal inspection Respiratory Exam: normal breath sounds Cardiovascular Exam: regular rate/rhythm Gastrointestinal/Abdomen Exam: soft, normal bowel sounds Rectal Exam: other (patient has possible prolapse with excoriated external hemorrhoids circumferentially ) SpO2: 97 Ordered Tests: Medication Summary Discontinued Medications Generic Name Dose Route Start Last Admin Trade Name Freq PRN Reason Stop Dose Admin Lidocaine HCl Confirm 06/04/24 15:23 Lidocaine Hcl 2% Viscous 15 Ml Udcup Administered 06/04/24 15:24 Dose 15 ml .ROUTE .STK-MED ONE Lidocaine HCl 15 ml 06/04/24 15:23 06/04/24 15:25 Lidocaine Hcl 2% Viscous 15 Ml Udcup MM 06/04/24 15:24 15 ml STAT ONE Administration - Progress Progress: improved Progress Note: patient was given viscous lidocaine with some relief she will be discharged home with vicsous lidocaine and was informed of the need to keep her appointment with general surgery an continue the workup that is recommended by them 06/04/24 16:16 Medical Desision Making - Discussion of managment Reviewed:: Need for additional workup Agreed on:: need for follow-up - Departure Departure Disposition: Home Clinical Impression: Hemorrhoids Condition: Stable Critical Care Time: No Referrals: RAJANI MARTINEZ [Primary Care Provider] - Follow up/PCP as directed Prescriptions: Lidocaine [Tranzarel] 120 ml TP 1HRPRIOR PRN #120 PRN Reason: Pain
== END 2024-06-04 16:39 | disposition home or self-care (01) ==
LOC: ED 14:58
DX: K62.89 Other specified diseases of anus and rectum (principal); K64.4 Residual hemorrhoidal skin tags
CPT/HCPCS: 99281; 99282; A9270-GY

== ENCOUNTER 2024-09-19 23:02 | Emergency (ER) | payer MEDICARE ==
--- NOTE | 2024-09-19 23:05 | ERPHSYRPT ---
- History of Present Illness Time Seen by Provider: 09/19/24 23:04 Source: patient, family Exam Limitations: no limitations Physician History: This is a 38-year-old white female patient who arrives by private vehicle secondary to a fall onto her left knee causing a laceration. Patient's tetanus status is up-to-date. Patient is refusing any kind of x-ray. Patient is a daily smoker of tobacco cigarettes. Patient has a history of Keyanna-Malissa syndrome, COPD, asthma, hyperlipidemia and Crohn's disease. Patient was able to ambulate to the emergency department room from the waiting room Method of Injury: fell Occurred: just prior to arrival Quality: aching Severity of Pain-Max: mild Severity of Pain-Current: mild Lower Extremities Pain: knee: left Modifying Factors: Improves With: nothing Associated Symptoms: none Allergies/Adverse Reactions: morphine Allergy (Verified 09/19/24 23:10) "HAD SINCE I WAS A KID" Home Medications: Bupropion HCl Xl 150 mg [Wellbutrin XL 150 MG] 150 mg PO HS 09/19/24 [History] Cariprazine HCl [Vraylar] 1 cap PO HS 09/19/24 [History] Fluticasone/Umeclidin/Vilanter [Trelegy Ellipta 200-62.5-25] 1 puff IH DAILY 09/19/24 [History] Ondansetron [Ondansetron Odt ] 4 mg PO Q12H PRN 09/19/24 [History] clonazePAM 0.5 mg PO BID 09/19/24 [History] Hx Tetanus, Diphtheria Vaccination/Date Given: Yes Hx Influenza Vaccination/Date Given: No Hx Pneumococcal Vaccination/Date Given: No Travel Risk - International Travel Have you traveled outside of the country in past 3 weeks: No - Emerging Infectious Disease Are you exhibiting symptoms associated with any current EIDs: No Symptoms: Cough: New Onset, Shortness of Breath - Review of Systems Constitutional: No Symptoms Eyes: No Symptoms Ears, Nose, & Throat: No Symptoms Respiratory: No Symptoms Cardiac: No Symptoms Abdominal/Gastrointestinal: No Symptoms Genitourinary Symptoms: No Symptoms Musculoskeletal: Injury (Left anterior knee) Skin: Other (Laceration left anterior knee) Neurological: No Symptoms Psychological: No Symptoms Endocrine: No Symptoms Hematologic/Lymphatic: No Symptoms Immunological/Allergic: No Symptoms All Other Systems: Reviewed and Negative - Past Medical History Pertinent Past Medical History: Yes Neurological History: Other ENT History: No Pertinent History Cardiac History: No Pertinent History Respiratory History: Asthma, COPD Endocrine Medical History: Hyperthyroidism Musculoskeletal History: Other GI Medical History: Crohns Disease, Gallbladder Disease, Other History: No Pertinent History Psycho-Social History: No Pertinent History Female Reproductive Disorders: No Pertinent History Other Medical History: KEYANNA-MALISSA SYNDROME history of bowel obstructions B owel surgery apr 2021 - Past Surgical History Past Surgical History: Yes Neuro Surgical History: No Pertinent History Cardiac: No Pertinent History Respiratory: No Pertinent History Gastrointestinal: Cholecystectomy, Other Genitourinary: No Pertinent History Musculoskeletal: Orthopedic Surgery Female Surgical History: Hysterectomy Other Surgical History: PARTIAL THYROIDECTOMY - Female History Hx Last Menstrual Period: total hyserectomy - Social History Smoking Status: Current every day smoker How long have you smoked: 15 yrs Exposure to second hand smoke: Yes Drug Use: marijuana, other Patient Lives Alone: No - Social Determinants of Health Will the patient participate in the screening: Declined to provide - Nursing Vital Signs Nursing Vital Signs: Initial Vital Signs Temperature 97.5 F 09/19/24 23:05 Pulse Rate 108 H 09/19/24 23:05 Respiratory Rate 18 09/19/24 23:05 Blood Pressure 145/103 09/19/24 23:05 O2 Sat by Pulse Oximetry 97 09/19/24 23:05 Pain Scale Pain Intensity 8 - Physical Exam General Appearance: no apparent distress, alert, anxiety Eyes, Ears, Nose, Throat Exam: normal ENT inspection, moist mucous membranes Neck Exam: normal inspection, non-tender, supple, full range of motion Cardiovascular/Respiratory Exam: chest non-tender, no respiratory distress Gastrointestinal/Abdominal Exam: non-tender Back Exam: normal inspection, normal range of motion, No CVA tenderness, No vertebral tenderness Hips Exam: bilateral: non-tender, normal inspection, normal range of motion, no evidence of injury Legs Exam: bilateral leg: non-tender, normal inspection, normal range of motion, no evidence of injury Knees Exam: right knee: non-tender, normal inspection, no evidence of injury, left knee: soft tissue tenderness (Anterior knee. 3 cm V-shaped, horizontally oriented laceration), bilateral knee: normal range of motion Ankle Exam: bilateral ankle: non-tender, normal inspection, normal range of motion, no evidence of injury Foot Exam: bilateral foot: non-tender, normal inspection, normal range of motion, no evidence of injury Neuro/Tendon Exam: normal sensation, normal motor functions, normal tendon functions, responds to pain, no evidence tendon injury Mental Status Exam: alert, oriented x 3, cooperative Skin Exam: laceration (V shaped, horizontally oriented left anterior skin laceration) SpO2 Interpretation: normal O2 Delivery: Room Air Procedures - Laceration/Wound Repair Left Anterior Knee Time of Procedure: 23:15 Wound Location: Left, lower leg Wound Length (cm): 3 Wound's Depth, Shape: superficial, linear, into subcut Wound Explored: clean (Wound explored to the base in a bloodless field and no foreign bodies noted) Irrigated: Yes Hibiclens Prep: Yes Anesthesia: 1% Lidocaine Volume Anesthetic (ccs): 3 Wound Repaired With: Ro (5 skin ro used to approximate the skin edges of this laceration) - Course Nursing assessment & vital signs reviewed: Yes Ordered Tests: Medication Summary Discontinued Medications Generic Name Dose Route Start Last Admin Trade Name Emre PRN Reason Stop Dose Admin Lidocaine HCl Confirm 09/19/24 23:13 Lidocaine Hcl 1% 20 Ml Mdv 20 Ml Ml Administered 09/19/24 23:14 Dose 3 ml .ROUTE .STK-MED ONE Lidocaine HCl 3 ml 09/19/24 23:14 09/19/24 23:17 Lidocaine Hcl 1% 20 Ml Mdv 20 Ml Ml IJ 09/19/24 23:15 3 ml STAT ONE Administration - Progress Progress: improved Progress Note: 09/19/24 23:28 My medical decision making and the assignment of low complexity to this patient's medical issue today is based on review of the patient's past medical history, review of the patient's medication list, reviewed patient drug allergy list, history present illness and physical findings on examination. The workup in this patient does not require radiographic or laboratory studies. Differential diagnosis includes but is not limited to abrasion of skin left anterior knee, laceration of skin left anterior knee Counseled pt/family regarding: diagnosis, need for follow-up Medical Desision Making - Diagnostic Testing Diagnostic test were ordered, analyzed, and reviewed by me: No - Risk of complications Minimal Risk: Minimal risk of morbidity - Departure Departure Disposition: Home Clinical Impression: Laceration of left knee Condition: Stable Critical Care Time: No Referrals: JUAN,SHREELEKHA [Primary Care Provider] - Follow up/PCP as directed Additional Instructions: Keep the current bandage in place for 24 hours. After 24 hours, remove the bandage and rinse the site off with soapy water each day thereafter. After each rinsing, blot dry use a chair frame builder to dry the site. Reapply antibiotic ointment of choice and cover with bandage. Staple removal in 8 to 10 days. If there are no contraindications, you may use Tylenol and ibuprofen for pain control. Call your primary care provider tomorrow, 09/20/2024, to make arrangements for follow- up appointment for further evaluation and management.
[2024-09-19 23:10] VITALS: RESP 18; TEMP 97.5
[2024-09-19] MEDS ORDERED: XYLOCAINE 1% HCL 20 ML MDV ONE (23:13)
[2024-09-19] MEDS: XYLOCAINE 1% HCL 20 ML MDV IJ ONE (23:17)
[2024-09-19 23:42] VITALS: BP 140/101; PULSE 101; O2SAT 98
== END 2024-09-19 23:40 | disposition home or self-care (01) ==
LOC: ED 23:02
DX: S81.012A Laceration without foreign body, left knee, initial encounter (principal); W19.XXXA Unspecified fall, initial encounter; Z79.899 Other long term (current) drug therapy; Z72.0 Tobacco use
CPT/HCPCS: 12002; 99282; 99283

== ENCOUNTER 2024-10-06 17:56 | Emergency (ER) | payer MEDICARE | END 2024-10-06 18:10 | disposition left against medical advice (07) | LOC: ED 17:56 | DX: Z48.01 Encounter for change or removal of surgical wound dressing (principal) | CPT/HCPCS: 99281 ==

== ENCOUNTER 2025-03-22 19:31 | Emergency (ER) | payer MEDICARE, MEDICAID ==
--- NOTE | 2025-03-22 19:34 | ERPHSYRPT ---
- History of Present Illness Time Seen by Provider: 03/22/25 19:34 Historian: patient, family Exam Limitations: no limitations Physician History: This is a 39-year-old white female patient who arrives to the emergency department by private vehicle accompanied by her father found to have a significantly rapid heart rate. Onset was rapid within the last hour prior to arrival. Patient has abdominal pain and a history of recurrent bowel obstructions. She also has an enlarging right posterior subcutaneous lower extremity mass that is tender. Patient was seen at an urgent care clinic this afternoon and was prescribed an antibiotic which she did not take because she was having abdominal pain and was significantly nauseated. Patient admits to K2 use (smoking) but not for a week or 2. Patient denies all other illicit drug use. Patient has a history of Eben-Saluda syndrome. Patient smokes tobacco cigarettes daily. However today she has decreased her smoking because she is feels nauseated and has had pain. Patient has had a total hysterectomy. Patient has a history of Crohn's disease, hypothyroidism, asthma and COPD. Timing/Duration: today Pain Radiation: no radiation Severity of Pain-Max: moderate Severity of Pain-Current: moderate Associated Symptoms: loss of appetite, nausea, vomiting, No chest pain Previous symptoms: no prior history, recently treated Allergies/Adverse Reactions: morphine Allergy (Verified 03/22/25 19:38) "HAD SINCE I WAS A KID" Home Medications: No Reportable Medications [No Reported Medications] 03/22/25 [History] Hx Tetanus, Diphtheria Vaccination/Date Given: Yes Hx Influenza Vaccination/Date Given: No Hx Pneumococcal Vaccination/Date Given: No Travel Risk - International Travel Have you traveled outside of the country in past 3 weeks: No - Emerging Infectious Disease Are you exhibiting symptoms associated with any current EIDs: No Symptoms: Cough: New Onset, Shortness of Breath - Review of Systems Constitutional: Weakness Eyes: No Symptoms Ears, Nose, & Throat: No Symptoms Respiratory: No Symptoms Cardiac: Palpitations Abdominal/Gastrointestinal: Abdominal Pain, Nausea, Appetite Changes Genitourinary Symptoms: No Symptoms Musculoskeletal: No Symptoms Skin: Other (Right posterior popliteal fossa subcutaneous mass) Neurological: No Symptoms Psychological: No Symptoms Endocrine: No Symptoms Hematologic/Lymphatic: No Symptoms Immunological/Allergic: No Symptoms All Other Systems: Reviewed and Negative - Past Medical History Pertinent Past Medical History: Yes Neurological History: Other ENT History: No Pertinent History Cardiac History: No Pertinent History Respiratory History: Asthma, COPD Endocrine Medical History: Hyperthyroidism Musculoskeletal History: Other GI Medical History: Crohns Disease, Gallbladder Disease, Other History: No Pertinent History Psycho-Social History: No Pertinent History Female Reproductive Disorders: No Pertinent History Other Medical History: EBEN-JAY SYNDROME history of bowel obstructions Bowel surgery apr 2021 - Past Surgical History Past Surgical History: Yes Neuro Surgical History: No Pertinent History Cardiac: No Pertinent History Respiratory: No Pertinent History Gastrointestinal: Cholecystectomy, Other Genitourinary: No Pertinent History Musculoskeletal: Orthopedic Surgery Female Surgical History: Hysterectomy Other Surgical History: PARTIAL THYROIDECTOMY - Female History Hx Last Menstrual Period: total hyserectomy - Social History Smoking Status: Current every day smoker How long have you smoked: 15 yrs Exposure to second hand smoke: Yes Drug Use: marijuana, other Patient Lives Alone: No - Social Determinants of Health Will the patient participate in the screening: Declined to provide - Nursing Vital Signs Nursing Vital Signs: Initial Vital Signs Temperature 96.1 F 03/22/25 19:40 Pulse Rate 226 H 03/22/25 19:40 Respiratory Rate 20 03/22/25 19:40 Blood Pressure 148/103 03/22/25 19:40 O2 Sat by Pulse Oximetry 99 03/22/25 19:40 Pain Scale Pain Intensity 8 - Physical Exam General Appearance: moderate distress, alert, anxiety, thin Eye Exam: PERRL/EOMI, eyes nml inspection Ears, Nose, Throat Exam: dry mucous membranes Neck Exam: normal inspection, non-tender, supple, full range of motion Respiratory Exam: normal breath sounds, lungs clear, No chest tenderness, No respiratory distress Cardiovascular Exam: tachycardia Gastrointestinal/Abdomen Exam: soft, normal bowel sounds, tenderness (Generalized to palpation), guarding (Generalized to palpation), rebound (+/-) Pelvic Exam: not done Rectal Exam: not done Back Exam: normal inspection, normal range of motion, No CVA tenderness, No vertebral tenderness Extremity Exam: normal range of motion, pelvis stable, tenderness (In the area of a approximately 3 cm x 3 cm subcutaneous mass. 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 No drainage or cellulitis present) Lymphatic Exam: No adenopathy SpO2 Interpretation: normal O2 Delivery: Room Air - Course Nursing assessment & vital signs reviewed: Yes EKG Interpreted by Me: RATE, SVT (225), Right Pratt Deviation (Borderline), Other (Left ventricular hypertrophy. Anterior Q waves possibly due to LVH. QTc is 466. No acute ischemia on this twelve-lead EKG) Ordered Tests: Active Orders 24 hr Category Date Time Status EKG-ER Only STAT Care 03/22/25 20:05 Active EKG-ER Only STAT Care 03/22/25 20:07 Active IV Insertion STAT Care 03/22/25 20:05 Active ABDOMEN AND PELVIS W/0 CONTRAS [CT] Stat Exams 03/22/25 20:08 Taken AMYLASE Stat Lab 03/22/25 20:07 Completed BLOOD CULTURE Stat Lab 03/22/25 20:22 Received CBC W DIFF Stat Lab 03/22/25 20:07 Completed CMP Stat Lab 03/22/25 20:07 Completed LIPASE Stat Lab 03/22/25 20:07 Completed Lactic Acid Stat Lab 03/22/25 20:10 Completed Lactic Acid Stat Lab 03/22/25 22:15 Completed MAGNESIUM Stat Lab 03/22/25 20:07 Completed TROPONIN Q4H Lab 03/22/25 20:07 Completed TROPONIN Q4H Lab 03/23/25 04:15 Ordered TROPONIN Stat Lab 03/22/25 23:15 Completed TSH [TSH, 3RD Generation] Stat Lab 03/22/25 20:07 Completed UA W/RFX UR CULTURE Stat Lab 03/22/25 20:17 Completed Urine Triage Profile Stat Lab 03/22/25 20:17 Completed Medication Summary Discontinued Medications Generic Name Dose Route Start Last Admin Trade Name Freq PRN Reason Stop Dose Admin Adenosine Confirm 03/22/25 19:47 Adenosine 6 Mg/2 Ml Vial Administered 03/22/25 19:48 Dose 6 mg IV .STK-MED ONE Adenosine Confirm 03/22/25 19:47 Adenosine 6 Mg/2 Ml Vial Administered 03/22/25 19:48 Dose 12 mg IV .STK-MED ONE Adenosine 6 mg 03/22/25 19:55 03/22/25 19:55 Adenosine 6 Mg/2 Ml Vial IV 03/22/25 19:56 6 mg STAT ONE Administration Hydromorphone HCl 0.5 mg 03/22/25 20:05 03/22/25 20:15 Hydromorphone 1 Mg/1ml Inj IV 03/22/25 20:06 0.5 mg STAT ONE Administration Hydromorphone HCl Confirm 03/22/25 20:14 Hydromorphone 1 Mg/1ml Inj Administered 03/22/25 20:15 Dose 1 mg .ROUTE .STK-MED ONE Hydromorphone HCl 0.5 mg 03/22/25 23:10 03/22/25 23:26 Hydromorphone 1 Mg/1ml Inj IV 03/22/25 23:11 0.5 mg STAT ONE Administration Hydromorphone HCl Confirm 03/22/25 23:25 Hydromorphone 1 Mg/1ml Inj Administered 03/22/25 23:26 Dose 1 mg .ROUTE .STK-MED ONE Sodium Chloride 1,000 mls @ 999 mls/hr 03/22/25 20:05 03/22/25 21:16 Sodium Chloride 0.9% 1000 Ml IV 03/22/25 21:05 Infused .Q1H1M STA Infusion Sodium Chloride Confirm 03/22/25 20:15 Sodium Chloride 0.9% 1000 Ml Administered 03/22/25 20:16 Dose 1,000 mls @ ud .ROUTE .STK-MED ONE Metronidazole 500 mg 03/23/25 00:33 03/23/25 01:29 Metronidazole 500 Mg Tablet PO 03/23/25 00:34 500 mg STAT ONE Administration Metronidazole Confirm 03/23/25 01:29 Metronidazole 500 Mg Tablet Administered 03/23/25 01:30 Dose 500 mg .ROUTE .STK-MED ONE Ondansetron HCl 4 mg 03/22/25 20:05 03/22/25 20:15 Ondansetron Hcl 4 Mg/2 Ml Vial IV 03/22/25 20:06 4 mg STAT ONE Administration Ondansetron HCl Confirm 03/22/25 20:14 Ondansetron Hcl 4 Mg/2 Ml Vial Administered 03/22/25 20:15 Dose 4 mg .ROUTE .STK-MED ONE Lab/Rad Data: Laboratory Result Diagrams 03/22/25 20:07 03/22/25 20:07 Laboratory Results 03/22/25 03/22/25 03/22/25 Range/Units 23:15 22:15 20:17 WBC (3.98-10.04) x10^3/uL RBC (3.93-5.22) x10^6/uL Hgb (11.2-15.7) g/dL Hct (34.1-44.9) % MCV (79.4-94.8) fL MCH (25.6-32.2) pg MCHC (32.2-35.5) g/dL RDW (11.7-14.4) % Plt Count (182-369) x10^3/uL MPV (9.4-12.3) fL Gran % (34.0-71.1) % Immature Gran % (Auto) (0.001-0.429) % Nucleat RBC Rel Count (0.00-0.2) % Eos # (Auto) (0.04-0.36) x10^3/uL Immature Gran # (Auto) (0.001-0.031) x10^3u/L Absolute Lymphs (auto) (1.18-3.74) x10^3/uL Absolute Monos (auto) (0.24-0.86) x10^3/uL Absolute Nucleated RBC (0.00-0.012) x10^3u/L Lymphocytes % (19.3-51.7) % Monocytes % (4.7-12.5) % Eosinophils % (0.7-5.8) % Basophils % (0.1-1.2) % Absolute Granulocytes (1.56-6.13) x10^3/uL Basophils # (0.01-0.08) x10^3/uL Sodium (135-145) mmol/L Potassium (3.5-5.1) mmol/L Chloride (98-107) mmol/L Carbon Dioxide (22-30) mmol/L Anion Gap (5-15) MEQ/L BUN (7-17) mg/dL Creatinine (0.52-1.04) mg/dL Estimated GFR ML/MIN Glucose (74-106) mg/dL Lactic Acid 0.9 (0.4-2.0) Calcium (8.4-10.2) mg/dL Magnesium (1.6-2.3) mg/dL Total Bilirubin (0.2-1.3) mg/dL AST (14-36) U/L ALT (0-35) U/L Alkaline Phosphatase (38-126) U/L Troponin I 0.073 H* (0.000-0.033) ng/mL Serum Total Protein (6.3-8.2) g/dL Albumin (3.5-5.0) g/dL Amylase (30-110) U/L Lipase (23-300) U/L Free T4 (0.78-2.19) ng/dL TSH 3rd Generation (0.470-4.680) mIU/L Urine Color (Yellow) Urine Appearance (Clear) Urine pH (4.6-8.0) Ur Specific [place] (1.005-1.030) Urine Protein (Negative) Urine Glucose (UA) (Negative) mg/dL Urine Ketones (Negative) Urine Blood (Negative) Urine Nitrite (Negative) Urine Bilirubin (Negative) Urine Urobilinogen (0.2) mg/dL Ur Leukocyte Esterase (Negative) U Hyaline Cast (Auto) (0-2) /LPF Urine Microscopic RBC (0-5) /HPF Urine Microscopic WBC (0-5) /HPF Ur Epithelial Cells (None Seen) /HPF Urine Bacteria (None Seen) /HPF Urine Culture Reflexed (NO) Urine Opiates Level NEGATIVE (NEGATIVE) Ur Methadone NEGATIVE (NEGATIVE) Urine Barbiturates NEGATIVE (NEGATIVE) Ur Phencyclidine (PCP) NEGATIVE (NEGATIVE) Urine Amphetamine NEGATIVE (NEGATIVE) U Benzodiazepine Level NEGATIVE (NEGATIVE) Urine Cocaine NEGATIVE (NEGATIVE) Urine Marijuana (THC) NEGATIVE (NEGATIVE) 03/22/25 03/22/25 03/22/25 Range/Units 20:17 20:10 20:07 WBC (3.98-10.04) x10^3/uL RBC (3.93-5.22) x10^6/uL Hgb (11.2-15.7) g/dL Hct (34.1-44.9) % MCV (79.4-94.8) fL MCH (25.6-32.2) pg MCHC (32.2-35.5) g/dL RDW (11.7-14.4) % Plt Count (182-369) x10^3/uL MPV (9.4-12.3) fL Gran % (34.0-71.1) % Immature Gran % (Auto) (0.001-0.429) % Nucleat RBC Rel Count (0.00-0.2) % Eos # (Auto) (0.04-0.36) x10^3/uL Immature Gran # (Auto) (0.001-0.031) x10^3u/L Absolute Lymphs (auto) (1.18-3.74) x10^3/uL Absolute Monos (auto) (0.24-0.86) x10^3/uL Absolute Nucleated RBC (0.00-0.012) x10^3u/L Lymphocytes % (19.3-51.7) % Monocytes % (4.7-12.5) % Eosinophils % (0.7-5.8) % Basophils % (0.1-1.2) % Absolute Granulocytes (1.56-6.13) x10^3/uL Basophils # (0.01-0.08) x10^3/uL Sodium (135-145) mmol/L Potassium (3.5-5.1) mmol/L Chloride (98-107) mmol/L Carbon Dioxide (22-30) mmol/L Anion Gap (5-15) MEQ/L BUN (7-17) mg/dL Creatinine (0.52-1.04) mg/dL Estimated GFR ML/MIN Glucose (74-106) mg/dL Lactic Acid 2.6 H (0.4-2.0) Calcium (8.4-10.2) mg/dL Magnesium (1.6-2.3) mg/dL Total Bilirubin (0.2-1.3) mg/dL AST (14-36) U/L ALT (0-35) U/L Alkaline Phosphatase (38-126) U/L Troponin I (0.000-0.033) ng/mL Serum Total Protein (6.3-8.2) g/dL Albumin (3.5-5.0) g/dL Amylase (30-110) U/L Lipase (23-300) U/L Free T4 1.81 (0.78-2.19) ng/dL TSH 3rd Generation (0.470-4.680) mIU/L Urine Color Yellow (Yellow) Urine Appearance Cloudy A (Clear) Urine pH 7.5 (4.6-8.0) Ur Specific [place] 1.010 (1.005-1.030) Urine Protein Negative (Negative) Urine Glucose (UA) Negative (Negative) mg/dL Urine Ketones Negative (Negative) Urine Blood Negative (Negative) Urine Nitrite Negative (Negative) Urine Bilirubin Negative (Negative) Urine Urobilinogen 0.2 (0.2) mg/dL Ur Leukocyte Esterase Small A (Negative) U Hyaline Cast (Auto) NONE SEEN (0-2) /LPF Urine Microscopic RBC 0-2 (0-5) /HPF Urine Microscopic WBC 3-5 (0-5) /HPF Ur Epithelial Cells None Seen (None Seen) /HPF Urine Bacteria None Seen (None Seen) /HPF Urine Culture Reflexed NO (NO) Urine Opiates Level (NEGATIVE) Ur Methadone (NEGATIVE) Urine Barbiturates (NEGATIVE) Ur Phencyclidine (PCP) (NEGATIVE) Urine Amphetamine (NEGATIVE) U Benzodiazepine Level (NEGATIVE) Urine Cocaine (NEGATIVE) Urine Marijuana (THC) (NEGATIVE) 03/22/25 03/22/25 03/22/25 Range/Units 20:07 20:07 20:07 WBC (3.98-10.04) x10^3/uL RBC (3.93-5.22) x10^6/uL Hgb (11.2-15.7) g/dL Hct (34.1-44.9) % MCV (79.4-94.8) fL MCH (25.6-32.2) pg MCHC (32.2-35.5) g/dL RDW (11.7-14.4) % Plt Count (182-369) x10^3/uL MPV (9.4-12.3) fL Gran % (34.0-71.1) % Immature Gran % (Auto) (0.001-0.429) % Nucleat RBC Rel Count (0.00-0.2) % Eos # (Auto) (0.04-0.36) x10^3/uL Immature Gran # (Auto) (0.001-0.031) x10^3u/L Absolute Lymphs (auto) (1.18-3.74) x10^3/uL Absolute Monos (auto) (0.24-0.86) x10^3/uL Absolute Nucleated RBC (0.00-0.012) x10^3u/L Lymphocytes % (19.3-51.7) % Monocytes % (4.7-12.5) % Eosinophils % (0.7-5.8) % Basophils % (0.1-1.2) % Absolute Granulocytes (1.56-6.13) x10^3/uL Basophils # (0.01-0.08) x10^3/uL Sodium 139 (135-145) mmol/L Potassium 3.8 (3.5-5.1) mmol/L Chloride 106 (98-107) mmol/L Carbon Dioxide 25 (22-30) mmol/L Anion Gap 11.5 (5-15) MEQ/L BUN 19 H (7-17) mg/dL Creatinine 0.68 (0.52-1.04) mg/dL Estimated GFR 112.1 ML/MIN Glucose 186 H (74-106) mg/dL Lactic Acid (0.4-2.0) Calcium 9.6 (8.4-10.2) mg/dL Magnesium 1.8 (1.6-2.3) mg/dL Total Bilirubin 0.40 (0.2-1.3) mg/dL AST 261 H (14-36) U/L ALT 194 H (0-35) U/L Alkaline Phosphatase 410 H (38-126) U/L Troponin I 0.048 H* (0.000-0.033) ng/mL Serum Total Protein 6.9 (6.3-8.2) g/dL Albumin 4.2 (3.5-5.0) g/dL Amylase 126 H (30-110) U/L Lipase 455 H (23-300) U/L Free T4 (0.78-2.19) ng/dL TSH 3rd Generation 0.054 L (0.470-4.680) mIU/L Urine Color (Yellow) Urine Appearance (Clear) Urine pH (4.6-8.0) Ur Specific [place] (1.005-1.030) Urine Protein (Negative) Urine Glucose (UA) (Negative) mg/dL Urine Ketones (Negative) Urine Blood (Negative) Urine Nitrite (Negative) Urine Bilirubin (Negative) Urine Urobilinogen (0.2) mg/dL Ur Leukocyte Esterase (Negative) U Hyaline Cast (Auto) (0-2) /LPF Urine Microscopic RBC (0-5) /HPF Urine Microscopic WBC (0-5) /HPF Ur Epithelial Cells (None Seen) /HPF Urine Bacteria (None Seen) /HPF Urine Culture Reflexed (NO) Urine Opiates Level (NEGATIVE) Ur Methadone (NEGATIVE) Urine Barbiturates (NEGATIVE) Ur Phencyclidine (PCP) (NEGATIVE) Urine Amphetamine (NEGATIVE) U Benzodiazepine Level (NEGATIVE) Urine Cocaine (NEGATIVE) Urine Marijuana (THC) (NEGATIVE) 03/22/25 Range/Units 20:07 WBC 9.2 (3.98-10.04) x10^3/uL RBC 4.85 (3.93-5.22) x10^6/uL Hgb 14.8 (11.2-15.7) g/dL Hct 45.6 H (34.1-44.9) % MCV 94.0 (79.4-94.8) fL MCH 30.5 (25.6-32.2) pg MCHC 32.5 (32.2-35.5) g/dL RDW 14.6 H (11.7-14.4) % Plt Count 330 (182-369) x10^3/uL MPV 9.6 (9.4-12.3) fL Gran % 58.2 (34.0-71.1) % Immature Gran % (Auto) 0.4 (0.001-0.429) % Nucleat RBC Rel Count 0.0 (0.00-0.2) % Eos # (Auto) 0.10 (0.04-0.36) x10^3/uL Immature Gran # (Auto) 0.04 H (0.001-0.031) x10^3u/L Absolute Lymphs (auto) 3.05 (1.18-3.74) x10^3/uL Absolute Monos (auto) 0.61 (0.24-0.86) x10^3/uL Absolute Nucleated RBC 0.00 (0.00-0.012) x10^3u/L Lymphocytes % 33.3 (19.3-51.7) % Monocytes % 6.7 (4.7-12.5) % Eosinophils % 1.1 (0.7-5.8) % Basophils % 0.3 (0.1-1.2) % Absolute Granulocytes 5.33 (1.56-6.13) x10^3/uL Basophils # 0.03 (0.01-0.08) x10^3/uL Sodium (135-145) mmol/L Potassium (3.5-5.1) mmol/L Chloride (98-107) mmol/L Carbon Dioxide (22-30) mmol/L Anion Gap (5-15) MEQ/L BUN (7-17) mg/dL Creatinine (0.52-1.04) mg/dL Estimated GFR ML/MIN Glucose (74-106) mg/dL Lactic Acid (0.4-2.0) Calcium (8.4-10.2) mg/dL Magnesium (1.6-2.3) mg/dL Total Bilirubin (0.2-1.3) mg/dL AST (14-36) U/L ALT (0-35) U/L Alkaline Phosphatase (38-126) U/L Troponin I (0.000-0.033) ng/mL Serum Total Protein (6.3-8.2) g/dL Albumin (3.5-5.0) g/dL Amylase (30-110) U/L Lipase (23-300) U/L Free T4 (0.78-2.19) ng/dL TSH 3rd Generation (0.470-4.680) mIU/L Urine Color (Yellow) Urine Appearance (Clear) Urine pH (4.6-8.0) Ur Specific [place] (1.005-1.030) Urine Protein (Negative) Urine Glucose (UA) (Negative) mg/dL Urine Ketones (Negative) Urine Blood (Negative) Urine Nitrite (Negative) Urine Bilirubin (Negative) Urine Urobilinogen (0.2) mg/dL Ur Leukocyte Esterase (Negative) U Hyaline Cast (Auto) (0-2) /LPF Urine Microscopic RBC (0-5) /HPF Urine Microscopic WBC (0-5) /HPF Ur Epithelial Cells (None Seen) /HPF Urine Bacteria (None Seen) /HPF Urine Culture Reflexed (NO) Urine Opiates Level (NEGATIVE) Ur Methadone (NEGATIVE) Urine Barbiturates (NEGATIVE) Ur Phencyclidine (PCP) (NEGATIVE) Urine Amphetamine (NEGATIVE) U Benzodiazepine Level (NEGATIVE) Urine Cocaine (NEGATIVE) Urine Marijuana (THC) (NEGATIVE) - Progress Progress: improved, pain not gone completely, re-examined Progress Note: 03/22/25 20:31 My medical decision making and the assignment of high complexity to this patient's medical issue today is based on review of the patient's past medical history, reviewed the patient's medication list, reviewed the patient drug allergy list, history of present illness and physical findings on examination. The workup in this patient includes placement of intravenous line, twelve-lead EKG, 6 mg intravenous adenosine stat, CBC, CMP, magnesium level, urinalysis, TSH, free T4, urine drug triage, repeat twelve-lead EKG after the adenosine infusion, CT scan of the abdomen pelvis, troponin level Differential diagnosis includes but is not limited to myocardial infarction, sepsis, dehydration, illicit drug use, electrolyte abnormalities, urinary tract infection, bowel obstruction I interpreted the second twelve-lead EKG that was performed on 03/22/2025 at 1959. This was after the patient received 6 mg of intravenous adenosine. Heart rate is now 116 bpm and is sinus tachycardia pattern. There is persistent borderline right axis deviation. There is persistent left ventricular hypertrophy. Anterior Q waves have resolved. QTc is 489. There is no evidence of acute ischemia on today's twelve-lead EKG 03/22/25 23:[address] scan of the abdomen pelvis without contrast was interpreted by the radiologist and I reviewed the impression. The impression states mild fluid distended small bowel with thickening, possible enteritis. Stable hepatic cyst, biliary distention and Eben Saluda syndrome. 03/22/25 23:14 I interpreted the patient's laboratory data results. Based on laboratory data results, the patient does have elevated AST and a elevated ALT. Alkaline phosphatase is elevated at 410. Patient has slightly elevated amylase and lipase level. The patient also has a slightly elevated troponin level at 0.048. Patient's free T4 is normal with a significantly low TSH. Patient's urinalysis and urine drug triage are negative for any acute or emergent medical issue 03/23/25 00:20 I interpreted the patient's repeat twelve-lead EKG that was performed on 03/22/2025 at 2359. The heart rate is now 101 bpm the rhythm pattern is sinus tachycardia. There is borderline right axis deviation. No evidence of acute ischemia. QTc is 471. The repeat troponin level did slightly increased to 0.073. I do think this is related to the fact the patient was in SVT for a couple of hours prior to being evaluated in the emergency department and having resolution of the SVT. Patient does not have, and has not had, chest pain. 03/23/25 01:[address] Mathis, our hospitalist on-call at this time. I reviewed the patient history, presenting complaint, workup results and patient response to our intervention. Dr. Dutta is concerned about the intra-abdominal issue with slightly elevated amylase level and slightly elevated LFTs. In addition, the patient does have an elevated troponin level and the second troponin level slightly increased from the previous level. He declines admission/placement in observation in our facility. He feels that the patient needs to be where there is gastroenterology and cardiology available in house. Services that we do not have in-house in our facility. 03/23/25 02:[address] Avilez, the hospitalist on at [facility]. I reviewed the patient's past medical history, presenting complaint, history of present illness and physical findings on examination. I also reviewed the workup results and the patient response to our intervention. He accepts the patient in transfer to their facility. Counseled pt/family regarding: lab results, diagnosis, rad results Medical Desision Making - Independent Historian Additional History obtained from: Father - Discussion of managment Care discussed with:: hospitalist (Dr. Dutta declines at placement in our facility.) - Diagnostic Testing Diagnostic test were ordered, analyzed, and reviewed by me: Yes Radiological Interpretation: Reviewed by me, Teleradiologist Report - Risk of complications The pt has a high risk of morbidity or mortality based on: Decision regarding hospitilization or escalation of hosp level of care - Departure Departure Disposition: Transfer Clinical Impression: Enteritis, SVT (supraventricular tachycardia), Troponin level elevated, Elevated LFTs, Elevated pancreatic enzyme, Subclinical hyperthyroidism Condition: Fair Critical Care Time: Yes Critical Care Time(excluding separately billable procedures): Critical 30-74 mins (65) Referrals: RAJANI MARTINEZ [Primary Care Provider, [facility]] - Follow up/PCP as directed
[2025-03-22] MEDS ORDERED: Adenocard IV 6 MG/2 ML IV ONE ×2 (19:47)
[2025-03-22 19:51] VITALS: TEMP 96.1
[2025-03-22] MEDS: Adenocard IV 6 MG/2 ML IV ONE (19:55)
[2025-03-22] MEDS ORDERED: Hydromorphone 1 mg/ml Injection ONE ×2 (20:14→23:25)
[2025-03-22] MEDS ORDERED: Zofran 4 MG/2 ML VIAL ONE (20:14)
[2025-03-22] MEDS: Zofran 4 MG/2 ML VIAL IV ONE (20:15)
[2025-03-22] MEDS: Hydromorphone 1 mg/ml Injection IV ONE ×2 (20:15→23:26)
[2025-03-22 20:20] LABS: BASOPHIL % 0.3 % (0.1-1.2); Basophil (Absolute #) 0.03 x10^3/uL (0.01-0.08); Eosinophil (Absolute #) 0.10 x10^3/uL (0.04-0.36); Hematocrit 45.6 % (34.1-44.9); Hemoglobin 14.8 g/dL (11.2-15.7); IMMATURE GRAN # 0.04 x10^3u/L (0.001-0.031); IMMATURE GRAN % 0.4 % (0.001-0.429); Lymphocyte (Absolute #) 3.05 x10^3/uL (1.18-3.74); Mean Corpuscular Hemoglobin 30.5 pg (25.6-32.2); Mean Corpuscular Hgb Concent. 32.5 g/dL (32.2-35.5); Monocyte (Absolute #) 0.61 x10^3/uL (0.24-0.86); NUCLEATED RBC # 0.00 x10^3u/L (0.00-0.012); NUCLEATED RBC % 0.0 % (0.00-0.2); Platelet Count 330 x10^3/uL (182-369); Red Blood Count 4.85 x10^6/uL (3.93-5.22); White Blood Count 9.2 x10^3/uL (3.98-10.04)
[2025-03-22 20:33] LABS: Calcium 9.6 mg/dL (8.4-10.2); Carbon Dioxide 25.0 mmol/L (22-30); Creatinine 1 0.68 mg/dL (0.52-1.04); EST GLOMERULAR FILTRATION RATE 112.1 ML/MIN; Glucose 186.0 mg/dL (74-106); Potassium 3.8 mmol/L (3.5-5.1); SGOT/AST 261.0 U/L (14-36); SGPT/ALT 194.0 U/L (0-35); Total Protein 6.9 g/dL (6.3-8.2)
[2025-03-22 20:38] LABS: Amphetamine,Urine NEGATIVE (NEGATIVE); Barbiturate,Urine NEGATIVE (NEGATIVE); Benzodiazepine,Urine NEGATIVE (NEGATIVE); Cocaine,Urine NEGATIVE (NEGATIVE); Methadone,Urine NEGATIVE (NEGATIVE); Opiate,Urine NEGATIVE (NEGATIVE); PCP,Urine NEGATIVE (NEGATIVE); THC,Urine NEGATIVE (NEGATIVE)
[2025-03-22 20:53] LABS: Glucose, Urine Negative (Negative); Protein,Urine Dip Negative (Negative); RBC 0-2 /HPF (0-5)
[2025-03-23] MEDS ORDERED: Flagyl 500 MG ONE (01:29)
[2025-03-23] MEDS: Flagyl 500 MG PO ONE (01:29)
[2025-03-23 04:03] VITALS: BP 168/93; PULSE 100; RESP 20; O2SAT 97
--- NOTE | 2025-03-23 08:27 | XRAY ---
Indication: Abdominal pain. History of [place] syndrome. Multiple contiguous axial images obtained through the abdomen and pelvis without contrast. Comparison: June 26, 2023. Lung bases demonstrate stable 8 mm well-circumscribed right middle lobe noncalcified nodule, possibly granulomatous in this demographic. No infiltrate or effusion. Heart not enlarged. 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 Noncontrasted stomach and visualized bowel loops nonobstructed. Several small bowel loops are mildly fluid distended with fluid leveling and mild wall thickening favoring enteritis. Appendix not visualized. Stable mid abdomen bowel anastomosis, cholecystectomy, and hysterectomy. No free fluid/air. There remains diffuse biliary distention with common bile duct up to 1 cm in diameter. Stable small hepatic cysts and small left adrenal adenoma. Remaining liver, pancreas, spleen, adrenal glands, kidneys, ureters, bladder, and aorta are unremarkable. No pathologic retroperitoneal lymphadenopathy. Osseous structures intact again with diffuse bony sclerotic/lytic lesions consistent with clinically reported [place] syndrome. Impression: 1. Pelvis again limited due to extreme beam artifact from bilateral total hip arthroplasty. 2. Mild fluid distended small bowel loops with wall thickening favoring enteritis. 3. Stable probable benign right lung noncalcified nodule, hepatic cysts, left adrenal adenoma, biliary distention, and chronic bony findings.
== END 2025-03-23 04:20 | disposition short-term general hospital (02) ==
LOC: ED 19:31
DX: K52.9 Noninfective gastroenteritis and colitis, unspecified (principal); I47.10 Supraventricular tachycardia, unspecified; R77.8 Other specified abnormalities of plasma proteins; R94.5 Abnormal results of liver function studies; R74.8 Abnormal levels of other serum enzymes; E05.80 Other thyrotoxicosis without thyrotoxic crisis or storm; R10.9 Unspecified abdominal pain; R11.0 Nausea; Z72.0 Tobacco use

== ENCOUNTER 2025-05-03 15:25 | Emergency (ER) | payer MEDICARE, MEDICAID ==
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
[2025-05-03 15:34] VITALS: TEMP 97
[2025-05-03 16:09] LABS: BASOPHIL % 0.2 % (0.1-1.2); Basophil (Absolute #) 0.02 x10^3/uL (0.01-0.08); Eosinophil (Absolute #) 0.07 x10^3/uL (0.04-0.36); Hematocrit 39.6 % (34.1-44.9); Hemoglobin 12.7 g/dL (11.2-15.7); IMMATURE GRAN # 0.16 x10^3u/L (0.001-0.031); IMMATURE GRAN % 1.9 % (0.001-0.429); Lymphocyte (Absolute #) 1.96 x10^3/uL (1.18-3.74); Mean Corpuscular Hemoglobin 30.1 pg (25.6-32.2); Mean Corpuscular Hgb Concent. 32.1 g/dL (32.2-35.5); Monocyte (Absolute #) 0.72 x10^3/uL (0.24-0.86); NUCLEATED RBC # 0.00 x10^3u/L (0.00-0.012); NUCLEATED RBC % 0.0 % (0.00-0.2); Platelet Count 329 x10^3/uL (182-369); Red Blood Count 4.22 x10^6/uL (3.93-5.22); White Blood Count 8.4 x10^3/uL (3.98-10.04)
[2025-05-03 16:22] LABS: INR 0.93 (0.8-3.0); PROTIME 10.4 SECONDS (9.4-12.5)
[2025-05-03 16:25] LABS: Calcium 8.5 mg/dL (8.4-10.2); Carbon Dioxide 27 mmol/L (22-30); Creatinine 1 0.52 mg/dL (0.52-1.04); EST GLOMERULAR FILTRATION RATE 119.6 ML/MIN; ETHYL ALCOHOL < 10 mg/dL (0-10); Glucose 111 mg/dL (74-106); Potassium 3.7 mmol/L (3.5-5.1); SGOT/AST 29 U/L (14-36); SGPT/ALT 22 U/L (0-35); Total Protein 6.9 g/dL (6.3-8.2)
--- NOTE | 2025-05-03 16:36 | XRAY ---
Indication: Headache. No known injury. History Keyanna-Malissa syndrome. Multiple contiguous axial images obtained through the head without contrast. 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 No acute intracranial hemorrhage, abnormal extra-axial fluid collection, or mass effect. 4th ventricle is midline without hydrocephalus. 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 Impression: 1. Nonacute senile brain with chronic feature. 2. 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
[2025-05-03 17:26] VITALS: BP 148/112; PULSE 115; RESP 16; O2SAT 97
== END 2025-05-03 17:27 | disposition left against medical advice (07) ==
LOC: ED 15:25
DX: R51.9 Headache, unspecified (principal); E03.8 Other specified hypothyroidism; Z72.0 Tobacco use; Z86.79 Personal history of other diseases of the circulatory system